=== PATIENT | male | born 1945 | race Caucasian/White ===

== ENCOUNTER 2022-04-17 22:42 | Inpatient (IN) | payer MEDICARE, SELFPAY ==
[2022-04-17 22:46] VITALS: BP 131/101; PULSE 142; RESP 16; TEMP 36.4; O2SAT 97; BMI 22.1
[2022-04-17 23:23] VITALS: RESP 15; O2SAT 96
[2022-04-18] VITALS (14 sets, daily range): BP systolic 117–135; BP diastolic 59–85; PULSE 92–136; RESP 15–20; TEMP 36.8–38.3; O2SAT 92–95; BMI 22.1
[2022-04-18 01:19] LABS: Absolute Lymphocyte Count 0.99 X10^3/uL (0.83-4.51); Absolute Neutrophil Count 28.1 X10^3/uL (2.0-7.7); Basophil% 0.3 % (0-1); Eosinophil# 0.06 X10^3/uL; Eosinophils% 0.2 % (0-5); Hematocrit 31.5 % (40-54); Hemoglobin 10.4 g/dL (13.0-16.5); Lymphocyte # 0.99 X10^3/ul (0.83-4.51); Lymphocyte % 3.2 % (19-41); Mean Corpuscular Hgb 29.6 pg (27.0-32.0); Mean Corpuscular Volume 89.7 fL (80-94); Mean Platelet Vol. 10.1 fl (6.2-12.0); Monocyte# 0.84 X10^3/uL; Monocyte% 2.8 % (0-10); NRBC Flagged by Analyzer 0 % (0-5); Neutrophil # 28.07 X10^3/uL (2.7-7.7); Neutrophil % 91.9 % (47-70); POSITIVE COUNT YES; POSITIVE DIFFERENTIAL YES; Platelet Count 589 K/mm3 (150-450); RBC Distribution Width CV 13.9 % (11.6-14.6); Red Blood Count 3.51 M/mm3 (4.6-6.2)
[2022-04-18 01:21] LABS: Differential Indicated SCAN CRITERIA MET; White Blood Count 30.5 K/mm3 (4.4-11.0)
--- NOTE | 2022-04-18 01:30 | CT_ITS ---
EXAM: CT ANGIOGRAPHY CHEST WITHOUT AND WITH INTRAVENOUS CONTRAST CLINICAL INDICATION: dyspnea TECHNIQUE: Helically acquired angiography images were obtained of the chest without and with intravenous contrast. CTDIvol = ( 11.32 ) mGy, DLP = ( 421.90 ) mGycm This CT exam was performed using one or more of the following dose reduction techniques: automated exposure control, adjustment of the mA and/or kV according to patient size, and/or use of iterative reconstruction technique. This report was created using Medialive report generation technology. MIP reconstructed images were created and reviewed. CONTRAST: IV 75mL [id number] COMPARISON: None. FINDINGS: PULMONARY ARTERIES: Unremarkable. Normal in caliber. No evidence of pulmonary embolism. AORTA: Unremarkable. Normal in caliber. No evidence of dissection. GREAT VESSELS OF AORTIC ARCH: Unremarkable. Normal in caliber. No evidence of dissection. LUNGS AND PLEURAL SPACES: Centrilobular emphysema is relatively mild. Moderate right pleural effusion with adjacent passive atelectasis. Small left pleural effusion with adjacent passive atelectasis. At least mild centrilobular emphysema. Small calcified granuloma at the left upper lobe. No mass. No pneumothorax. HEART: Moderate-size pericardial effusion. No signs of right heart strain, ratio of right ventricle to left ventricle measures less than 1. MEDIASTINUM: Multivessel calcific coronary tortuous. Mediastinal and bilateral hilar adenopathy. Distal esophageal wall thickening is concerning for esophagitis. No hiatal hernia. THYROID: Unremarkable. No thyroid lesions. BONES/JOINTS: Unremarkable. No suspicious lytic or blastic abnormality. GALLBLADDER AND BILE DUCTS: Gallbladder sludge but no acute cholecystitis. SPLEEN: Calcified granulomas of the spleen. KIDNEYS AND URETERS: Exophytic cyst involving the left kidney, incompletely imaged on this study. CT/CTA Chest W/WO Contrast IMPRESSION: 1. Bilateral pleural effusions with reactive adenopathy. 2. No PE. 3. Moderate-size pericardial effusion. Electronically Signed: Ankit Moyer MD at 3:33 EST ,
[2022-04-18 01:33] LABS: Anion Gap 9 (5-15); BUN 62 mg/dL (7-18); BUN/Creat Ratio 36.5 RATIO (10-20); Calcium,Total 9.3 mg/dL (8.5-10.1); Chloride 96 mmol/L (98-107); EST Glomerular Filtration Rate 42 mL/min (>60); Est Glom Filt Rate - Afr Amer 51 mL/min (>60); Estimated Creatinine Clearance 36.13 ml/min; Glucose 116 mg/dL (74-106); Potassium 3.4 mmol/L (3.5-5.1); Sodium Level 134 mmol/L (136-145)
[2022-04-18 02:21] LABS: Differential Comment SCANNED
[2022-04-18 02:22] LABS: BNP,B-Type NATRIURETIC PEPTIDE 157.9 pg/mL (0-100); Platelet Estimate MOD INC (ADEQ); Platelet Morphology LARGE
[2022-04-18 02:25] LABS: AST(SGOT) 124 U/L (15-37); Alanine Aminotransfer ALT/SGPT 98 U/L (16-61); Alkaline Phosphatase 111 U/L (45-117); Bilirubin, Direct 0.16 mg/dL (0.00-0.30); Globulin 5.8 g/dL (2.2-4.2); Magnesium 2.2 mg/dL (1.6-2.6); Protein, Total 7.8 g/dL (6.4-8.2)
[2022-04-18 02:26] LABS: Lactic Acid 1.8 mmol/L (0.4-1.9)
[2022-04-18 02:31] LABS: Color, Urine Yellow (Yellow); Glucose, Dipstick Normal (Normal); Ketone-Dipstick Negative (Negative); Leukocyte Esterase-Dipstick Negative /ul (Negative); Mucous, Urine 0 SEEN /hpf (<or=2+); Nitrite-Dipstick Negative (Negative); Occult Blood-Urine 25 /ul (Negative); Protein-Dipstick 30 mg/dl (Negative); Specific Gravity, Urine 1.015 (1.002-1.030); Squamous Epithelial Cells - UA 0 SEEN /hpf (0-5); Urine Bilirubin Dipstick Negative (Negative); Urine Clarity Clear (Clear); Urine Urobilinogen Normal (Normal)
[2022-04-18 02:46] LABS: Amorphous Sediment 1+; Bacteria 1+ /hpf (None Seen); Red Blood Cells-Urine 0-5 SEEN /hpf (0-5); White Blood Cells 0-5 SEEN /hpf (0-5)
--- NOTE | 2022-04-18 04:17 | EDS_ITS ---
HPI History of Present Illness Chief Complaint: Shortness of Breath Narrative Narrative: Patient is a 76-year-old male who lives at home alone. According to patient and family he has a history of smoking and alcohol abuse which she quit roughly 1 month ago. He also has a diagnosis of lung cancer in August 2021 which he has not followed up with. Patient and family state that he lives in a trailer by himself and over the past 2 weeks he has been having increased generalized weakness to the point where he is not eating or drinking or getting up and ambulating on his own. Family states that they have tried to help take care of him with physical therapy but are not present 24 hours a day and they feel like they are no longer able to care for him in this state and therefore brought him in for evaluation Patient states he does not have a DNR on file but would prefer to be a DNR Co mfort Care arrest without intubation [facility] Medical History (Updated 04/18/22 @ 07:[address] Ankit Atkins, DO) HTN (hypertension) Lung cancer Home Medications albuterol sulfate 90 mcg/actuation aerosol inhaler 1 - 2 puff inhalation Q4H PRN SOB 04/18/22 [History Last Taken Unknown] amlodipine 5 mg-benazepril 10 mg capsule 1 cap PO DAILY 04/18/22 [History Last Taken Unknown] atorvastatin 20 mg tablet 20 mg PO QHS 04/18/22 [History Last Taken Unknown] fluticasone fur. 100 mcg-umeclid 62.5 mcg-vilant 25 mcg inhalat.powder (Trelegy Ellipta) 1 inh inhalation DAILY 04/18/22 [History Last Taken Unknown] Allergy/AdvReac Type Severity Reaction Status Date / Time No Known Allergies Allergy Verified 04/17/22 22:46 Social History Smoking Status: Current every day smoker tobacco type: cigarettes ROS ROS ED Constitutional Constitutional ED: Denies chills or fever(s) ENT ENT ED: Denies sore throat Cardiovascular Cardiovascular: Denies chest pain Respiratory/Chest Respiratory/Chest: Reports cough and dyspnea Gastrointestinal Gastrointestinal: Reports nausea; Denies abdominal pain, diarrhea or vomiting Genitourinary Genitourinary ED: Denies dysuria Musculoskeletal Musculoskeletal: Denies myalgias Integumentary Denies rash Neurologic Neurologic: Reports weakness; Denies headache(s) Hematologic/Lymphatic Hematologic/Lymphatic: Denies easy bleeding or easy bruising EXAM Physical Exam Const Vital Signs: 04/17/22 22:46 04/17/22 23:23 04/17/22 23:23 Temperature 97.6 F L Temperature Source Temporal Pulse Rate 142 H Respiratory Rate 16 15 Blood Pressure 131/101 H Blood Pressure Mean 111 Pulse Ox 97 96 96 Oxygen Delivery Method Room Air Room Air Room Air 04/18/22 00:44 04/18/22 03:26 Temperature 98.9 F Temperature Source Oral Pulse Rate 101 H Respiratory Rate 15 15 Blood Pressure 135/85 H 129/59 H Blood Pressure Mean 101 82 Pulse Ox 95 95 Oxygen Delivery Method Room Air Positive unkempt General Appearance ED: unkempt and pallor HEENT Reports dry mucous membranes Mouth ED: Yes dry mucous membranes Mouth: dry mucous membranes Eyes PERRL and EOMs intact bilaterally General Eye ED: Yes pale conjunctiva Neck supple and no JVD Resp Resp Narrative: Breath sounds are diminished throughout with rhonchi present in the bilateral bases however no nasal flaring retractions tachypnea or accessory muscle use Cardio regular rhythm Rate: tachycardic and other Other Details: Tachycardic rate with regular rhythm Radial pulses are plus 2 out of 4 bilaterally are equal and symmetric GI normal to inspection, nondistended, normoactive bowel sounds, non-tender, non- distended and no masses GI Narrative: Abdomen is soft nontender and nondistended with hypoactive bowel sounds. No v oluntary guarding or rigidity. There is a reducible ventral hernia noted. No pulsatile mass or fluid wave present Auscultation: hypoactive bowel sounds Palpation: soft Extremity Extremity Narrative: Patient has +1-2 pitting edema to the bilateral lower extremities that is equal and symmetric Negative Homans' sign bilaterally Neuro oriented x3 and CN's II-XII intact bilaterally Neuro Narrative: Patient has generalized weakness with difficulty ambulating without assistance but there is no focal/acute neurologic finding present Sensorium / Orientation: alert Psych Psych Narrative: Patient has a flat affect Appearance: unkempt Skin no rashes or lesions noted Skin Narrative: Skin turgor is increased General Skin Exam: pallor MDM MDM MDM Narrative Medical decision making narrative: Patient presented to the ER tachycardic but otherwise afebrile and satting in the mid 90s on room air. With his increasing generalized weakness and failure to thrive as well as son reported history of lung cancer which she did not follow-up on I had concern for underlying infectious process or even pulmonary embolus causing his shortness of breath. Secondary to this I elected to perform basic labs and a CTA of his chest. Labs showed a leukocytosis at 30.5 but ot herwise no clinically significant findings. CTA revealed no PE but it did show bilateral pleural effusions with a pericardial effusion. However the patient does not have any chest pain or heart strain and therefore I feel that these findings are more chronic in nature. At this time because of the leukocytosis he will have blood cultures obtained as well as procalcitonin value but as it would not have a source of infection I do not feel there is need for antibiotics. Based on the patient's pleural and pericardial effusions and his failure to thrive and the fact that he needs more help and he can achieve at home by himself he will be kept in the hospital for further care and he is agreeable to placement in rehab or [facility] if necessary Lab Data Attestation: I reviewed the patient's lab results. Labs: Laboratory Results - last 24 hr 04/18/22 04/18/22 04/18/22 01:05 01:05 01:05 WBC 30.5 H* RBC 3.51 L Hgb 10.4 L Hct 31.5 L MCV 89.7 MCH 29.6 MCHC 33.0 RDW Std Deviation 46.0 H RDW Coeff of Yemi 13.9 Plt Count 589 H MPV 10.1 Immature Gran % (Auto) 1.600 H Neut % (Auto) 91.9 H Lymph % (Auto) 3.2 L [place] % (Auto) 2.8 Eos % (Auto) 0.2 Baso % (Auto) 0.3 Absolute Neuts (auto) 28.1 H Absolute Lymphs (auto) 0.99 Nucleated RBC % 0 Differential Comment SCANNED Diff Path Review May foll Platelet Estimate MOD INC Plt Morphology Comment LARGE Sodium 134 L Potassium 3.4 L Chloride 96 L Carbon Dioxide 29.0 Anion Gap 9 BUN 62 H Creatinine 1.70 H Estim Creat Clear Calc 36.13 Est GFR (MDRD) Af Amer 51 L Est GFR (MDRD) Non-Af 42 L BUN/Creatinine Ratio 36.5 H Glucose 116 H Lactic Acid Calcium 9.3 Magnesium 2.2 Total Bilirubin 0.40 Direct Bilirubin 0.16 AST 124 H ALT 98 H Alkaline Phosphatase 111 B-Natriuretic Peptide Total Protein 7.8 Albumin 2.0 L Globulin 5.8 H Urine Color Urine Clarity Urine pH Ur Specific [place] Urine Protein Urine Glucose (UA) Urine Ketones Urine Occult Blood Urine Nitrite Urine Bilirubin Urine Urobilinogen Ur Leukocyte Esterase Urine RBC Urine WBC Ur Squamous Epith Cells Amorphous Sediment Urine Bacteria Urine Mucus 04/18/22 04/18/22 04/18/22 01:05 01:50 02:20 WBC RBC Hgb Hct MCV MCH MCHC RDW Std Deviation RDW Coeff of Yemi Plt Count MPV Immature Gran % (Auto) Neut % (Auto) Lymph % (Auto) [place] % (Auto) Eos % (Auto) Baso % (Auto) Absolute Neuts (auto) Absolute Lymphs (auto) Nucleated RBC % Differential Comment Diff Path Review Platelet Estimate Plt Morphology Comment Sodium Potassium Chloride Carbon Dioxide Anion Gap BUN Creatinine Estim Creat Clear Calc Est GFR (MDRD) Af Amer Est GFR (MDRD) Non-Af BUN/Creatinine Ratio Glucose Lactic Acid 1.8 Calcium Magnesium Total Bilirubin Direct Bilirubin AST ALT Alkaline Phosphatase B-Natriuretic Peptide 157.9 H Total Protein Albumin Globulin Urine Color Yellow Urine Clarity Clear Urine pH 5.0 Ur Specific [place] 1.015 Urine Protein 30 H Urine Glucose (UA) Normal Urine Ketones Negative Urine Occult Blood 25 H Urine Nitrite Negative Urine Bilirubin Negative Urine Urobilinogen Normal Ur Leukocyte Esterase Negative Urine RBC 0-5 SEEN Urine WBC 0-5 SEEN Ur Squamous Epith Cells 0 SEEN Amorphous Sediment 1+ Urine Bacteria 1+ Urine Mucus 0 SEEN Radiography Diagnostic Testing: Clinical Impression(s) from Imaging Studies Chest CTA 04/18/22 01:30 IMPRESSION: 1. Bilateral pleural effusions with reactive adenopathy. 2. No PE. 3. Moderate-size pericardial effusion. Electronically Signed: Ankit Moyer MD at 3:33 EST , Discharge Plan Dx/Rx/DC Orders Clinical Impression: NAZANIN (acute kidney injury), Debility, Leukocytosis, Pericardial effusion Disposition [facility]
--- NOTE | 2022-04-18 04:26 | PCM.HP.STD ---
HPI - General General Date of Admission: 04/18/22 Date of Service: 04/18/22 Chief Complaint: Weakness HPI Narrative EUGENIA DONOHUE, is a 76 M with a significant history of malignant lung nodule status post resection with lymph resection as well presenting to the emergency department with 2-week history of progressively worsening weakness. Patient is too weak that he is unable to get up by himself. The patient lives on a trailer on his son's compound and his son has been helping him. However it has gone to a point where his son is no longer able to provide help him. Associated with symptoms is anorexia. Also patient is not drinking. Also patient has chronic shortness of breath. Patient's lung resection was on 08/30/2021 at [facility] Home Medications albuterol sulfate 90 mcg/actuation aerosol inhaler 1 - 2 puff inhalation Q4H PRN SOB 04/18/22 [History Last Taken Unknown] amlodipine 5 mg-benazepril 10 mg capsule 1 cap PO DAILY 04/18/22 [History Last Taken Unknown] atorvastatin 20 mg tablet 20 mg PO QHS 04/18/22 [History Last Taken Unknown] fluticasone fur. 100 mcg-umeclid 62.5 mcg-vilant 25 mcg inhalat.powder (Trelegy Ellipta) 1 inh inhalation DAILY 04/18/22 [History Last Taken Unknown] Allergy/AdvReac Type Severity Reaction Status Date / Time No Known Allergies Allergy Verified 04/17/22 22:46 Social History Smoking Status: Current every day smoker tobacco type: cigarettes ROS ROS Narrative Pertinent positives and pertinent negatives as noted in HPI. All other systems were reviewed and are negative Vital Signs Vital Signs Vital Signs: 04/17/22 22:46 04/17/22 23:23 04/17/22 23:23 Temperature 97.6 F L Temperature Source Temporal Pulse Rate 142 H Respiratory Rate 16 15 Blood Pressure 131/101 H Blood Pressure Mean 111 Pulse Ox 97 96 96 Oxygen Delivery Method Room Air Room Air Room Air 04/18/22 00:44 04/18/22 03:26 Temperature 98.9 F Temperature Source Oral Pulse Rate 101 H Respiratory Rate 15 15 Blood Pressure 135/85 H 129/59 H Blood Pressure Mean 101 82 Pulse Ox 95 95 Oxygen Delivery Method Room Air Weight Weight: 68.039 kg Body Mass Index (BMI) 22.1 Physical Exam Narrative Physical exam: General: Well-nourished, well-developed. Head: Normocephalic, atraumatic, no tenderness Eyes: Vision is grossly intact. EOMI ENT, no trauma, moist mucous membranes, no rhinorrhea Neck: Nontender, No thyromegaly. CVS: Regular rate and rhythm. S1-S2 present. No murmur, gallop or rub. Respiratory : clear to auscultation bilaterally, chest wall nontender, no wheezing Abdomen: Soft, nontender, nondistended, normal bowel sounds, no masses : Deferred Back: Nontender, no CVA tenderness, no midline spinal tenderness, deformities, step-offs Extremities: Nontender full range of motion, no trauma Skin: Normal color, no trauma, abrasions Neuro: Alert, knows the year. Does not know the month. cranial nerves II through XII grossly intact. Psychiatry: Flat not anxious. Results Lab / Micro Data Result Diagrams: 04/18/22 01:05 04/18/22 01:05 Labs: Laboratory Results - last 24 hr 04/18/22 01:05: WBC 30.5 H*, RBC 3.51 L, Hgb 10.4 L, Hct 31.5 L, MCV 89.7, MCH 29.6, MCHC 33.0, RDW Std Deviation 46.0 H, RDW Coeff of Yemi 13.9, Plt Count 589 H, MPV 10.1, Immature Gran % (Auto) 1.600 H, Neut % (Auto) 91.9 H, Lymph % (Auto) 3.2 L, [place] % (Auto) 2.8, Eos % (Auto) 0.2, Baso % (Auto) 0.3, Absolute Neuts (auto) 28.1 H, Absolute Lymphs (auto) 0.99, Nucleated RBC % 0, Differential Comment SCANNED, Diff Path Review May foll, Platelet Estimate MOD INC, Plt Morphology Comment LARGE 04/18/22 01:05: Sodium 134 L, Potassium 3.4 L, Chloride 96 L, Carbon Dioxide 29.0, Anion Gap 9, BUN 62 H, Creatinine 1.70 H, Estim Creat Clear Calc 36.13, Est GFR (MDRD) Af Amer 51 L, Est GFR (MDRD) Non-Af 42 L, BUN/Creatinine Ratio 36.5 H, Glucose 116 H, Calcium 9.3 04/18/22 01:05: Magnesium 2.2, Total Bilirubin 0.40, Direct Bilirubin 0.16, AST 124 H, ALT 98 H, Alkaline Phosphatase 111, Total Protein 7.8, Albumin 2.0 L, Globulin 5.8 H 04/18/22 01:05: B-Natriuretic Peptide 157.9 H 04/18/22 01:50: Lactic Acid 1.8 04/18/22 02:20: Urine Color Yellow, Urine Clarity Clear, Urine pH 5.0, Ur Specific [place] 1.015, Urine Protein 30 H, Urine Glucose (UA) Normal, Urine Ketones Negative, Urine Occult Blood 25 H, Urine Nitrite Negative, Urine Bilirubin Negative, Urine Urobilinogen Normal, Ur Leukocyte Esterase Negative, Urine RBC 0-5 SEEN, Urine WBC 0-5 SEEN, Ur Squamous Epith Cells 0 SEEN, Amorphous Sediment 1+, Urine Bacteria 1+, Urine Mucus 0 SEEN Micro: Microbiology 04/18/22 01:10 Nasal Secretion SARS-CoV-2 & FLU Antigen (Rapid) - Final Radiology Impression Chest CTA 04/18/22 01:30 IMPRESSION: 1. Bilateral pleural effusions with reactive adenopathy. 2. No PE. 3. Moderate-size pericardial effusion. Electronically Signed: Ankit Moyer MD at 3:33 EST , Assessment & Plan Assessment/Plan (1) NAZANIN (acute kidney injury): (2) Debility: (3) Leukocytosis: (4) Pericardial effusion: PLAN: Plan NAZANIN Review of community records from [facility] shows that on 09/03/2021 patient creatinine was 1.0. His creatinine on this presentation was 1.70. BUN is 62. BUN over creatinine is 36.5. Gentle IV hydration ordered. Trend BMP. Ultrasound of bladder and kidneys ordered. Leukocytosis. White count on presentation was 30,500. And with bandemia of 1.6% Review of community records show that on 09/03/2021 his white count was 9.2. Trend. Blood cultures ordered at emergency department, follow-up Pericardial effusion CTA showed a pericardial effusion. CT was visualized and independently interpreted and I agree with with radiology interpretation. However will order an echocardiogram for further evaluation. No noticeable symptoms of pericardial effusion. Debility PT and OT to work with patient for strengthening balance training. Case management consult Bilateral lower feet edema Home CARLEY alcantara continued DVT prophylaxis Subcutaneous Lovenox ordered. Charges/Coding Visit Charges Inpatient E&M: 44896 Init Hosp L3
[2022-04-18 05:17] LABS: Procalcitonin 1.01 ng/mL (0.00-0.09)
--- NOTE | 2022-04-18 05:27 | US_ITS ---
STUDY: RENAL ULTRASOUND - COMPLETE REASON FOR EXAM: Male, 76 years old. NAZANIN TECHNIQUE: Ultrasound evaluation of the kidneys was performed with real-time and static beckman-scale imaging. COMPARISON: None. FINDINGS: RIGHT KIDNEY: Normal location of the right kidney, which is normal in size. The right kidney measures 10.8 cm. There is a normal cortex of the right kidney. The renal cortex measures 11.8 cm. There is no right renal mass or cyst. There are no right renal calculi. There is mild hydronephrosis of the right kidney. DISTAL RIGHT URETER: There is non-visualization of the distal right ureter. There is no demonstrated right ureterovesical junction calculus. There is a visualized right ureteral jet. LEFT KIDNEY: Normal location of the left kidney, which is normal in size. The left kidney measures 10.5 cm. There is a normal cortex of the left kidney. The renal cortex measures 1.6 cm. 5 cm exophytic cyst on the midsection of left kidney. There are no left renal calculi. There is no left hydronephrosis. DISTAL LEFT URETER: There is non-visualization of the distal left ureter. There is no demonstrated left ureterovesical junction calculus. There is a visualized left ureteral jet. BLADDER: The distended urinary bladder has a volume of 5:15 ml. The empty urinary bladder has a volume of ml. There is a normal wall thickness of the distended urinary bladder. There is no demonstrated mass within the urinary bladder. There are no demonstrated bladder calculi. US/Kidney and Bladder IMPRESSION: 1. Mild right hydronephrosis. 2. 5 cm exophytic cyst of the left kidney. Electronically Signed: Wale Woodruff MD at 12:29 EST ,
[2022-04-18] MEDS: 0.9% Normal Saline 1,000 ML 75 ML IV ×2 (05:42→17:54)
--- NOTE | 2022-04-18 05:55 | ECHOCS_ITS ---
Reason For Study: Pericardial Effusion on CT Procedure This was a 2D Doppler, Color Flow transthoracic echocardiogram. Technically difficult study due to patient body habitus, arrhythmia, and uncontrollable shaking. Contrast injection was performed. Exam performed portable in ED. Left Ventricle Normal LV size. The estimated ejection fraction is 55 %. Normal diastology for age. No regional wall motion abnormalities noted. Right Ventricle Normal RV size. Normal systolic function. Atria Normal left atrium. Normal right atrium. No doppler evidence for ASD. Mitral Valve There is no mitral valve stenosis. No mitral valve insufficiency. Tricuspid Valve There is no tricuspid stenosis. Trivial tricuspid valve insufficiency. Unable to estimate RV systolic pressure due to insufficient tricuspid regurgitant envelope. Aortic Valve There is no aortic stenosis. No aortic valve insufficiency. Pulmonic Valve There is no pulmonic valvular stenosis. No pulmonic valve insufficiency. Great Vessels Normal aortic root. Pericardium/Pleural No pericardial effusion. Medication Diluted definity 2ml given slow IV push to enhance endocardial definition. MMode/2D Measurements & Calculations RVDd: 3.2 cm LAV(MOD-sp4): 32.2 ml LA A4 area: 14.3 cm2 RA A4 area: 16.7 cm2 Doppler Measurements & Calculations MV E max uzma: 97.2 cm/sec MV V2 max: 97.6 cm/sec Ao V2 max: 114.8 cm/sec MV max P.8 mmHg Ao max P.3 mmHg MV V2 mean: 45.7 cm/sec MV mean P.0 mmHg MV V2 VTI: 28.0 cm LV V1 max: 111.2 cm/sec PA V2 max: 128.7 cm/sec LV V1 max P.0 mmHg PA V2 mean: 92.9 cm/sec ECHO/Echo Complete W/ Contrast Interpretation Summary The estimated ejection fraction is 55 %. No significant valvular abnormalities Ordering Physician: Shaun Landry Performed By: Candelario Klein RCS
[2022-04-18 06:21] LABS: Absolute Lymphocyte Count 0.98 X10^3/uL (0.83-4.51); Absolute Neutrophil Count 25.2 X10^3/uL (2.0-7.7); Basophil% 0.4 % (0-1); Eosinophil# 0.15 X10^3/uL; Eosinophils% 0.5 % (0-5); Hemoglobin 10.1 g/dL (13.0-16.5); Lymphocyte # 0.98 X10^3/ul (0.83-4.51); Lymphocyte % 3.5 % (19-41); Mean Corp Hgb Conc 32.6 g/dL (32-36); Mean Corpuscular Hgb 28.9 pg (27.0-32.0); Mean Corpuscular Volume 88.8 fL (80-94); Mean Platelet Vol. 9.7 fl (6.2-12.0); Monocyte# 0.98 X10^3/uL; Monocyte% 3.5 % (0-10); NRBC Flagged by Analyzer 0 % (0-5); Neutrophil # 25.15 X10^3/uL (2.7-7.7); Neutrophil % 91.1 % (47-70); POSITIVE DIFFERENTIAL YES; Platelet Count 595 K/mm3 (150-450); RBC Distribution Width CV 13.7 % (11.6-14.6); RBC Distribution Width SD 44.7 fl (35.1-43.9); Red Blood Count 3.49 M/mm3 (4.6-6.2); White Blood Count 27.7 K/mm3 (4.4-11.0)
[2022-04-18 06:23] LABS: Differential Indicated SCAN CRITERIA MET
[2022-04-18 06:39] LABS: Anion Gap 10 (5-15); BUN 58 mg/dL (7-18); BUN/Creat Ratio 36.5 RATIO (10-20); Calcium,Total 8.7 mg/dL (8.5-10.1); Chloride 98 mmol/L (98-107); Creatinine, Serum 1.59 mg/dL (0.70-1.30); EST Glomerular Filtration Rate 45 mL/min (>60); Est Glom Filt Rate - Afr Amer 55 mL/min (>60); Estimated Creatinine Clearance 38.63 ml/min; Glucose 116 mg/dL (74-106); Potassium 3.5 mmol/L (3.5-5.1); Sodium Level 135 mmol/L (136-145)
[2022-04-18 06:54] LABS: Differential Comment SCANNED
[2022-04-18] MEDS: Budesonide Respules 0.5 MG/2 ML AMPUL.NEB. INHALATION ×2 (07:23→19:03)
[2022-04-18] MEDS: Ipratropium/Albuterol Sulfate 3 ML AMPUL.NEB INHALATION (07:23)
[2022-04-18 07:30] LABS: Osmolality, Serum 296 mOsm/KG (280-301)
[2022-04-18] MEDS: amLODIPine 5 MG Tablet PO (09:21)
[2022-04-18] MEDS: Enoxaparin 40 MG/0.4 ML Syringe SC (09:21)
[2022-04-18 09:47] LABS: Urine Sodium 15 mmol/L (Not Establ.)
--- NOTE | 2022-04-18 12:29 | HP.PCM.HOS_ITS ---
HPI - General General Date of Admission: 04/18/22 Chief Complaint: Weakness HPI Narrative EUGENIA DONOHUE, is a 76 M who presents [facility] Medical History (Updated 04/18/22 @ 07:[address] Ankit Atkins, ) HTN (hypertension) Lung cancer Home Medications albuterol sulfate 90 mcg/actuation aerosol inhaler 1 - 2 puff inhalation Q4H PRN SOB 04/18/22 [History Last Taken Unknown] amlodipine 5 mg-benazepril 10 mg capsule 1 cap PO DAILY 04/18/22 [History Last Taken Unknown] atorvastatin 20 mg tablet 20 mg PO QHS 04/18/22 [History Last Taken Unknown] fluticasone fur. 100 mcg-umeclid 62.5 mcg-vilant 25 mcg inhalat.powder (Trelegy Ellipta) 1 inh inhalation DAILY 04/18/22 [History Last Taken Unknown] Allergy/AdvReac Type Severity Reaction Status Date / Time No Known Allergies Allergy Verified 04/17/22 22:46 Social History Smoking Status: Current every day smoker tobacco type: cigarettes Vital Signs Vital Signs Vital Signs: 04/17/22 22:46 04/17/22 23:23 04/17/22 23:23 Temperature 97.6 F L Temperature Source Temporal Pulse Rate 142 H Pulse Strength Respiratory Rate 16 15 Respiratory Effort Respiratory Depth Respiratory Pattern Blood Pressure 131/101 H Blood Pressure Mean 111 Blood Pressure Source Blood Pressure Position Blood Pressure Location Pulse Ox 97 96 96 Oxygen Delivery Method Room Air Room Air Room Air 04/18/22 00:44 04/18/22 03:26 04/18/22 04:49 Temperature 98.9 F 98.9 F Temperature Source Oral Oral Pulse Rate 101 H 104 H Pulse Strength Respiratory Rate 15 15 15 Respiratory Effort Respiratory Depth Respiratory Pattern Blood Pressure 135/85 H 129/59 H 117/70 Blood Pressure Mean 101 82 85 Blood Pressure Source Blood Pressure Position Blood Pressure Location Pulse Ox 95 95 94 Oxygen Delivery Method Room Air Room Air 04/18/22 05:00 04/18/22 05:50 04/18/22 06:03 Temperature 98.2 F Temperature Source Temporal Pulse Rate 92 114 H Pulse Strength Respiratory Rate 18 Respiratory Effort Non-Labored Respiratory Depth Normal Respiratory Pattern Tachypnea Blood Pressure 118/74 Blood Pressure Mean 88 Blood Pressure Source Monitor Blood Pressure Position Semi-Fowlers Blood Pressure Location Right Arm Pulse Ox 95 Oxygen Delivery Method Room Air Room Air 04/18/22 06:19 04/18/22 07:00 04/18/22 07:27 Temperature Temperature Source Pulse Rate 109 H 105 H Pulse Strength Respiratory Rate 18 Respiratory Effort Normal Non-Labored Respiratory Depth Normal Respiratory Pattern Normal Normal Blood Pressure Blood Pressure Mean Blood Pressure Source Blood Pressure Position Blood Pressure Location Pulse Ox Oxygen Delivery Method Room Air 04/18/22 07:27 04/18/22 10:00 04/18/22 08:00 Temperature Temperature Source Pulse Rate Pulse Strength Weak (1+) Respiratory Rate Respiratory Effort Normal Non-Labored Respiratory Depth Normal Respiratory Pattern Normal Blood Pressure Blood Pressure Mean Blood Pressure Source Blood Pressure Position Blood Pressure Location Pulse Ox 92 Oxygen Delivery Method Room Air Room Air 04/18/22 12:03 Temperature Temperature Source Pulse Rate 109 H Pulse Strength Respiratory Rate Respiratory Effort Respiratory Depth Respiratory Pattern Blood Pressure Blood Pressure Mean Blood Pressure Source Blood Pressure Position Blood Pressure Location Pulse Ox Oxygen Delivery Method Weight Weight: 150 lb Body Mass Index (BMI) 22.1 Results Lab / Micro Data Result Diagrams: 04/18/22 06:09 04/18/22 06:09 Labs: Laboratory Results - last 24 hr 04/18/22 01:05: WBC 30.5 H*, RBC 3.51 L, Hgb 10.4 L, Hct 31.5 L, MCV 89.7, MCH 29.6, MCHC 33.0, RDW Std Deviation 46.0 H, RDW Coeff of Yemi 13.9, Plt Count 589 H, MPV 10.1, Immature Gran % (Auto) 1.600 H, Neut % (Auto) 91.9 H, Lymph % (Auto) 3.2 L, [place] % (Auto) 2.8, Eos % (Auto) 0.2, Baso % (Auto) 0.3, Absolute Neuts (auto) 28.1 H, Absolute Lymphs (auto) 0.99, Nucleated RBC % 0, Differential Comment SCANNED, Diff Path Review Destini salvador, Platelet Estimate MOD INC, Plt Morphology Comment LARGE 04/18/22 01:05: Sodium 134 L, Potassium 3.4 L, Chloride 96 L, Carbon Dioxide 29.0, Anion Gap 9, BUN 62 H, Creatinine 1.70 H, Estim Creat Clear Calc 36.13, Est GFR (MDRD) Af Amer 51 L, Est GFR (MDRD) Non-Af 42 L, BUN/Creatinine Ratio 36.5 H, Glucose 116 H, Calcium 9.3 04/18/22 01:05: Magnesium 2.2, Total Bilirubin 0.40, Direct Bilirubin 0.16, AST 124 H, ALT 98 H, Alkaline Phosphatase 111, Total Protein 7.8, Albumin 2.0 L, Globulin 5.8 H 04/18/22 01:05: B-Natriuretic Peptide 157.9 H 04/18/22 01:50: Lactic Acid 1.8 04/18/22 02:20: Urine Color Yellow, Urine Clarity Clear, Urine pH 5.0, Ur Specific Worden 1.015, Urine Protein 30 H, Urine Glucose (UA) Normal, Urine Ketones Negative, Urine Occult Blood 25 H, Urine Nitrite Negative, Urine Bili hernandez Negative, Urine Urobilinogen Normal, Ur Leukocyte Esterase Negative, Urine RBC 0-5 SEEN, Urine WBC 0-5 SEEN, Ur Squamous Epith Cells 0 SEEN, Amorphous Sediment 1+, Urine Bacteria 1+, Urine Mucus 0 SEEN 04/18/22 04:32: Procalcitonin 1.01 H 04/18/22 04:32: Serum Osmolality 296 04/18/22 06:09: WBC 27.7 H, RBC 3.49 L, Hgb 10.1 L, Hct 31.0 L, MCV 88.8, MCH 28.9, MCHC 32.6, RDW Std Deviation 44.7 H, RDW Coeff of Yemi 13.7, Plt Count 595 H, MPV 9.7, Immature Gran % (Auto) 1.000 H, Neut % (Auto) 91.1 H, Lymph % (Auto) 3.5 L, Craven % (Auto) 3.5, Eos % (Auto) 0.5, Baso % (Auto) 0.4, Absolute Neuts (auto) 25.2 H, Absolute Lymphs (auto) 0.98, Nucleated RBC % 0, Differential Com ment SCANNED 04/18/22 06:09: Sodium 135 L, Potassium 3.5, Chloride 98, Carbon Dioxide 27.0, Anion Gap 10, BUN 58 H, Creatinine 1.59 H, Estim Creat Clear Calc 38.63, Est GFR (MDRD) Af Amer 55 L, Est GFR (MDRD) Non-Af 45 L, BUN/Creatinine Ratio 36.5 H, Glucose 116 H, Calcium 8.7 04/18/22 09:30: Ur Random Sodium 15, Urine Creatinine 68.90 Micro: Microbiology 04/18/22 01:10 Nasal Secretion SARS-CoV-2 & FLU Antigen (Rapid) - Final Radiology Impression Chest CTA 04/18/22 01:30 IMPRESSION: 1. Bilateral pleural effusions with reactive adenopathy. 2. No PE. 3. Moderate-size pericardial effusion. Electronically Signed: Ankit Moyer MD at 3:33 EST , Echocardiogram 04/18/22 05:55 Interpretation Summary The estimated ejection fraction is 55 %. No significant valvular abnormalities Ordering Physician: Shaun Landry Performed By: Candelario Klein, KORY
--- NOTE | 2022-04-18 13:24 | CASEMGMT ---
Addendum entered by Tiera Martínez 04/18/22 15:02: SW Note SW informed by RN patient's son was visiting and requested to speak with SW. SW met with patient's son and introduced herself and role as [employer] Older Worker Specialist. Patient's son had list of SNF options previously provided to patient. Patient's son stated the following were the patient's preferences: [facility], [facility] and [facility]. SW informed patient's son a referral would be sent to patient's first choice, patient's son voiced understanding. SW will continue to follow for discharge planning. SW sent referral to [facility] via [facility]. Plan: [facility] pending acceptance and precert ARGENIS Warren Original Note: ZINA Note SW informed by U SW patient needed to discuss discharge plan options and be given a SNF list if interested. SW met with patient and introduced herself and role as [employer] Older Worker Specialist. Patient was laying in bed with the lights off but allowed SW to turn lights on. SW inquired about patient's interest in going to a [facility] home facility at discharge, patient stated he was interested. SW provided patient with a list of local in network SNF options and inquired about his preference. Patient was receptive towards list, but stated he would need time to review the list. SW inquired if patient wanted SW to contact his daughter or son listed on facesheet to discuss discharge planning, patient declined. SW will continue to follow. RN updated SNF list was provided. Plan: SNF pending acceptance and precert ARGENIS Warren
--- NOTE | 2022-04-18 17:25 | NURSING ---
04/18/22@1725- Report called to SALINA Winter on PCU.
--- NOTE | 2022-04-18 19:32 | CPS ---
Pt HR was in the 130s. Did not give duoneb. Only pulmicort, due to high HR.
--- NOTE | 2022-04-18 20:01 | PN_ITS ---
Progress Note Patient in A. fib with RVR. Cardizem 10 mg bolus x1 given. Placed on therapeutic dose of Lovenox. Check TSH and magnesium. Replace potassium. Ec hocardiogram done within the last 24 hours.
[2022-04-18] MEDS: dilTIAZem 25 MG/5 ML Vial 10 MG IV BOLUS (20:29)
[2022-04-18] MEDS: 0.9% Saline Lock 10 ML Syringe IV (20:42)
[2022-04-18] MEDS: Potassium Chloride Oral Tablet 20 MEQ PO (20:42)
[2022-04-18] MEDS: Atorvastatin Calcium 20 MG Tablet PO (20:48)
[2022-04-18] MEDS: Enoxaparin 80 MG/0.8 ML Syringe 70 MG SC (21:01)
[2022-04-18] MEDS: Acetaminophen 325 MG Tablet 650 MG PO (22:47)
[2022-04-19] VITALS (28 sets, daily range): BP systolic 100–149; BP diastolic 49–97; PULSE 26–138; RESP 13–32; TEMP 37.2–37.9; O2SAT 88–94
[2022-04-19 05:41] LABS: Absolute Lymphocyte Count 1.15 X10^3/uL (0.83-4.51); Absolute Neutrophil Count 15.8 X10^3/uL (2.0-7.7); Basophil# 0.07 X10^3/uL; Basophil% 0.4 % (0-1); Eosinophil# 0.24 X10^3/uL; Eosinophils% 1.3 % (0-5); Hematocrit 30.3 % (40-54); Hemoglobin 9.6 g/dL (13.0-16.5); Lymphocyte # 1.15 X10^3/ul (0.83-4.51); Lymphocyte % 6.3 % (19-41); Mean Corp Hgb Conc 31.7 g/dL (32-36); Mean Corpuscular Volume 91.5 fL (80-94); Mean Platelet Vol. 9.5 fl (6.2-12.0); Monocyte# 0.75 X10^3/uL; Monocyte% 4.1 % (0-10); NRBC Flagged by Analyzer 0 % (0-5); Neutrophil # 15.82 X10^3/uL (2.7-7.7); Neutrophil % 86.5 % (47-70); Platelet Count 535 K/mm3 (150-450); RBC Distribution Width CV 14.1 % (11.6-14.6); RBC Distribution Width SD 47.4 fl (35.1-43.9); Red Blood Count 3.31 M/mm3 (4.6-6.2); White Blood Count 18.3 K/mm3 (4.4-11.0)
[2022-04-19] MEDS: 0.9% Normal Saline 1,000 ML 75 ML IV ×2 (05:47→21:29)
[2022-04-19 06:38] LABS: Anion Gap 5 (5-15); BUN 48 mg/dL (7-18); BUN/Creat Ratio 36.6 RATIO (10-20); Calcium,Total 8.7 mg/dL (8.5-10.1); Chloride 107 mmol/L (98-107); Creatinine, Serum 1.31 mg/dL (0.70-1.30); EST Glomerular Filtration Rate 57 mL/min (>60); Est Glom Filt Rate - Afr Amer 69 mL/min (>60); Estimated Creatinine Clearance 46.89 ml/min; Glucose 122 mg/dL (74-106); Magnesium 2.2 mg/dL (1.6-2.6); Potassium 3.6 mmol/L (3.5-5.1); Sodium Level 141 mmol/L (136-145); Thyroid Stim Hormone (TSH) 1.58 uIU/mL (0.358-3.74)
[2022-04-19] MEDS: Budesonide Respules 0.5 MG/2 ML AMPUL.NEB. INHALATION ×2 (07:10→19:45)
[2022-04-19] MEDS: Ipratropium/Albuterol Sulfate 3 ML AMPUL.NEB INHALATION ×2 (07:10→19:45)
--- NOTE | 2022-04-19 08:45 | CASEMGMT ---
ZINA received a call from Rachael at [facility]. She will review patient's referral and get back with ZINA. Teagan MORE
[2022-04-19] MEDS: amLODIPine 5 MG Tablet PO (09:51)
[2022-04-19] MEDS: Enoxaparin 80 MG/0.8 ML Syringe 70 MG SC ×2 (09:59→21:43)
[2022-04-19 10:00] LABS: Pathologist Review Reviewed
--- NOTE | 2022-04-19 15:02 | CASEMGMT ---
ZINA called rachael at [facility]. ZINA let her know that it is getting late on a Friday and if they can't take patient it is going to be hard to find someone this late. Rachael said she will get back to ZINA in 5 minutes. Teagan Galo CAPSULE INSPECTOR ARGENIS
--- NOTE | 2022-04-19 15:45 | PCM.PN.HOSP ---
Subjective Subjective He developed A. fib overnight was given a dose of Cardizem and then placed on a Cardizem drip this morning Objective Data Objective Data Vital Signs: Vital Signs Temp Pulse Resp BP Pulse Ox O2 Del Method O2 Flow Rate 100.2 F H 106 H 28 H 112/69 94 Nasal Cannula 2 04/19/22 15:00 04/19/22 15:00 04/19/22 15:00 04/19/22 15:00 04/19/22 15:00 04/19/22 15:00 04/19/22 15:00 Oxygen Flow Rate (L/min) 2 Oxygen Delivery Method Nasal Cannula Weight: 150 lb Body Mass Index (BMI) 22.1 Intake & Output: Intake and Output for Last 24 Hours 04/18/22 04/19/22 04/20/22 03:59 03:59 03:59 Intake Total 500 / 500 1722 / 1722 1220.58 / 1220.58 Output Total 25 / 25 Balance 500 / 500 1697 / 1697 1220.58 / 1220.58 Lab / Micro Data Result Diagrams: 04/19/22 05:20 04/19/22 05:20 Labs: Laboratory Results - last 24 hr 04/18/22 01:05: Diff Path Review Reviewed 04/19/22 05:20: WBC 18.3 H, RBC 3.31 L, Hgb 9.6 L, Hct 30.3 L, MCV 91.5, MCH 29.0, MCHC 31.7 L, RDW Std Deviation 47.4 H, RDW Coeff of Yemi 14.1, Plt Count 535 H, MPV 9.5, Immature Gran % (Auto) 1.400 H, Neut % (Auto) 86.5 H, Lymph % (Auto) 6.3 L, [place] % (Auto) 4.1, Eos % (Auto) 1.3, Baso % (Auto) 0.4, Absolute Neuts (auto) 15.8 H, Absolute Lymphs (auto) 1.15, Nucleated RBC % 0 04/19/22 05:20: Sodium 141, Potassium 3.6, Chloride 107, Carbon Dioxide 29.0, Anion Gap 5, BUN 48 H, Creatinine 1.31 H, Estim Creat Clear Calc 46.89, Est GFR (MDRD) Af Amer 69, Est GFR (MDRD) Non-Af 57 L, BUN/Creatinine Ratio 36.6 H, Glucose 122 H, Calcium 8.7, Magnesium 2.2, TSH 1.58 Micro: Microbiology 04/18/22 22:55 Nasal Secretion SARS-CoV-2 Antigen (Rapid) - Final 04/18/22 01:10 Nasal Secretion SARS-CoV-2 & FLU Antigen (Rapid) - Final Physical Exam Narrative General: Alert, Oriented x3, Cooperative, No apparent distress HEENT: Atraumatic, PERRLA, EOMI, Normocephalic Oral: Moist Mucosa Neck: Supple, No JVD Lungs: Diminished, Normal air movement, No rhonchi, No wheeze, No rales Cardiovascular: Irregular rate and rhythm, Normal S1, Normal S2, No murmurs Abdomen: Soft, Non Tender, Non-Distended, No Hepato-splenomegaly Extremities: No edema, Capillary Refill Less than 3 Seconds Skin: No rashes, No breakdown Musculoskeletal: No Tenderness to Palpation of Joints or Extremities Neurological: Cranial nerves II-XII grossly intact, Motor Exam 5/5 strength throughout, Sensory exam intact to light touch and pain Psych/Mental Status: Flat affect, Appropriate Assessment & Plan Assessment/Plan (1) NAZANIN (acute kidney injury): (2) Debility: (3) Leukocytosis: (4) Pericardial effusion: PLAN: Plan 1. NAZANIN with debility/lung cancer ? Renal function is improving as is leukocytosis while on any excess ? He is intermittently febrile however blood cultures are still pending ? Has been COVID tested twice which are negative. ? Unsure as to the pathology of his nodule but he did have a lung resection at [facility] in [place] on 08/30/2021. ? Continue with PT/OT for possible placement 2. New onset A. fib/pericardial effusion/HTN/HLD ? CTA of his chest demonstrated reactive adenopathy with pleural effusions and a moderate pericardial effusion however echo made no comment on pericardial effusion ? EF on the echo was normal ? We will continue with Cardizem drip ? Continue with Lipitor DVT: Therapeutic Lovenox Charges/Coding Visit Charges Inpatient E&M: 99160 Subs Hosp L2
--- NOTE | 2022-04-19 17:00 | CASEMGMT ---
Addendum entered by Teagan Galo 04/19/22 17:10: SW notified patient and his son that [facility] can take him when ready. Teagan MORE Original Note: ZINA spoke with Rachael at [facility] and they can take patient. Patient can go over the weekend if he is medically ready. ZINA will notify patient and his son that he was accepted at [facility]. Plan: d/c to [facility] under skilled level of care on a convalescent stay. Teagan MORE
[2022-04-19] MEDS: Menthol/Lanolin/Calamine/Znox 113 GM Tube 1 APPLIC TOPICAL (21:40)
[2022-04-19] MEDS: Atorvastatin Calcium 20 MG Tablet PO (21:41)
[2022-04-20] VITALS (25 sets, daily range): BP systolic 87–136; BP diastolic 52–87; PULSE 85–117; RESP 20–33; TEMP 37.2–37.8; O2SAT 89–99
[2022-04-20] MEDS: Menthol/Lanolin/Calamine/Znox 113 GM Tube 1 APPLIC TOPICAL ×3 (06:51→21:05)
[2022-04-20] MEDS: Budesonide Respules 0.5 MG/2 ML AMPUL.NEB. INHALATION ×2 (07:33→23:45)
[2022-04-20] MEDS: Ipratropium/Albuterol Sulfate 3 ML AMPUL.NEB INHALATION ×3 (07:33→23:44)
[2022-04-20 07:37] LABS: Absolute Lymphocyte Count 0.98 X10^3/uL (0.83-4.51); Absolute Neutrophil Count 18.7 X10^3/uL (2.0-7.7); Basophil# 0.06 X10^3/uL; Basophil% 0.3 % (0-1); Hematocrit 25.7 % (40-54); Hemoglobin 8.5 g/dL (13.0-16.5); Lymphocyte # 0.98 X10^3/ul (0.83-4.51); Lymphocyte % 4.7 % (19-41); Mean Corp Hgb Conc 33.1 g/dL (32-36); Mean Corpuscular Hgb 29.6 pg (27.0-32.0); Mean Corpuscular Volume 89.5 fL (80-94); Mean Platelet Vol. 9.7 fl (6.2-12.0); Monocyte# 0.73 X10^3/uL; Monocyte% 3.5 % (0-10); NRBC Flagged by Analyzer 0 % (0-5); Neutrophil # 18.68 X10^3/uL (2.7-7.7); Neutrophil % 89.3 % (47-70); Platelet Count 480 K/mm3 (150-450); RBC Distribution Width CV 14.2 % (11.6-14.6); RBC Distribution Width SD 46.5 fl (35.1-43.9); Red Blood Count 2.87 M/mm3 (4.6-6.2); White Blood Count 20.9 K/mm3 (4.4-11.0)
[2022-04-20 07:47] LABS: Anion Gap 6 (5-15); BUN 48 mg/dL (7-18); BUN/Creat Ratio 31.4 RATIO (10-20); Calcium,Total 8.2 mg/dL (8.5-10.1); Chloride 104 mmol/L (98-107); Creatinine, Serum 1.53 mg/dL (0.70-1.30); EST Glomerular Filtration Rate 47 mL/min (>60); Est Glom Filt Rate - Afr Amer 57 mL/min (>60); Estimated Creatinine Clearance 40.15 ml/min; Glucose 104 mg/dL (74-106); Potassium 3.8 mmol/L (3.5-5.1); Sodium Level 137 mmol/L (136-145)
[2022-04-20] MEDS: Metoprolol Tartrate 25 MG Tablet PO ×2 (08:17→21:06)
[2022-04-20] MEDS: Enoxaparin 80 MG/0.8 ML Syringe 70 MG SC (08:18)
[2022-04-20] MEDS: amLODIPine 5 MG Tablet PO (08:18)
[2022-04-20] MEDS: 0.9% Normal Saline 1,000 ML 75 ML IV ×2 (09:59→23:08)
--- NOTE | 2022-04-20 10:31 | EKG12_ITS ---
Test Reason : AFIB Blood Pressure : / mmHG Vent. Rate : 119 BPM Atrial Rate : 000 BPM P-R Int : 000 ms QRS Dur : 088 ms QT Int : 296 ms P-R-T Axes : 000 048 033 degrees QTc Int : 416 ms Atrial fibrillation with rapid ventricular response with premature ventricular or aberrantly conducte d complexes Low voltage QRS Nonspecific T wave abnormality Abnormal ECG No previous ECGs available Confirmed by DONYA BENAVIDES, MESERET ([id number]), photo editor JOSE GRAY ([id number]) on 04/22/2022 11:09:56 AM Referred By: KRISTIN Confirmed By:JESSIE NAQVI MD
--- NOTE | 2022-04-20 10:45 | EKG12_ITS ---
Test Reason : EKG RHYTHM CHANGE Blood Pressure : / mmHG Vent. Rate : 092 BPM Atrial Rate : 092 BPM P-R Int : 184 ms QRS Dur : 088 ms QT Int : 356 ms P-R-T Axes : 012 041 072 degrees QTc Int : 440 ms Sinus rhythm with Premature atrial complexes Low voltage QRS Nonspecific T wave abnormality Abnormal ECG When compared with ECG of 18-APR-2022 19:50, MANUAL COMPARISON REQUIRED, DATA IS UNCONFIRMED Confirmed by PILAR BENAVIDES, PAULO ([id number]), editorial intern JOSE GRAY ([id number]) on 04/23/2022 8:42:36 AM Referred By: Confirmed By:PAULO QUEZADA MD
--- NOTE | 2022-04-20 11:10 | CASEMGMT ---
Social Work Pt will not be discharged today. SW completed PAS/RR and put this with results on chart in event pt can be discharged tomorrow. JENNI Deluca
[2022-04-20] MEDS: dilTIAZem CD 240 MG Capsule PO (11:24)
[2022-04-20 11:43] LABS: Ferritin 6591 ng/mL (26-388); Iron 16 ug/dL (65-175); Iron Binding Capacity,Total 115 ug/dL (250-450); PERCENT IRON SATURATION 13.9 % (15.0-55.0)
--- NOTE | 2022-04-20 15:03 | PN.HOSP_ITS ---
Subjective Subjective Feels unchanged from admission he is a bit more day and his renal function has slightly worsened. His white count has gotten worse. He has had periodic fevers but so far infectious work-up is negative Objective Data Objective Data Vital Signs: Vital Signs Temp Pulse Resp BP Pulse Ox O2 Del Method O2 Flow Rate 99.2 F H 92 30 H 103/68 95 Room Air 2 04/20/22 09:00 04/20/22 13:45 04/20/22 13:45 04/20/22 13:00 04/20/22 13:00 04/20/22 14:55 04/20/22 03:00 Oxygen Flow Rate (L/min) 2 Oxygen Delivery Method Room Air Weight: 150 lb Body Mass Index (BMI) 22.1 Intake & Output: Intake and Output for Last 24 Hours 04/19/22 04/20/22 04/21/22 03:59 03:59 03:59 Intake Total 1722 / 1722 2621.25 / 2626.00 1062.50 / 1062.50 Output Total / Balance 1697 / 1697 2621.25 / 2626.00 1062.50 / 1062.50 Lab / Micro Data Result Diagrams: 04/20/22 06:20 04/20/22 06:20 Labs: Laboratory Results - last 24 hr 04/20/22 06:20: WBC 20.9 H, RBC 2.87 L, Hgb 8.5 L, Hct 25.7 L, MCV 89.5, MCH 29.6, MCHC 33.1, RDW Std Deviation 46.5 H, RDW Coeff of Yemi 14.2, Plt Count 480 H, MPV 9.7, Immature Gran % (Auto) 1.200 H, Neut % (Auto) 89.3 H, Lymph % (Auto) 4.7 L, [place] % (Auto) 3.5, Eos % (Auto) 1.0, Baso % (Auto) 0.3, Absolute Neuts (auto) 18.7 H, Absolute Lymphs (auto) 0.98, Nucleated RBC % 0 04/20/22 06:20: Sodium 137, Potassium 3.8, Chloride 104, Carbon Dioxide 27.0, Anion Gap 6, BUN 48 H, Creatinine 1.53 H, Estim Creat Clear Calc 40.15, Est GFR (MDRD) Af Amer 57 L, Est GFR (MDRD) Non-Af 47 L, BUN/Creatinine Ratio 31.4 H, Glucose 104, Calcium 8.2 L 04/20/22 06:20: Iron 16 L, TIBC 115 L, Iron Saturation 13.9 L, Ferritin 6591 H Micro: Microbiology 04/18/22 04:46 Blood Culture (Wb) - Left Hand Blood Culture - Preliminary No growth in 48 hours. 04/18/22 04:32 Blood Culture (Wb) - Anticubital Left Blood Culture - Preliminary No growth in 48 hours. 04/18/22 22:55 Nasal Secretion SARS-CoV-2 Antigen (Rapid) - Final 04/18/22 01:10 Nasal Secretion SARS-CoV-2 & FLU Antigen (Rapid) - Final Physical Exam Narrative General: Alert, Oriented x3, Cooperative, No apparent distress HEENT: Atraumatic, PERRLA, EOMI, Normocephalic Oral: Moist Mucosa Neck: Supple, No JVD Lungs: Diminished, Normal air movement, No rhonchi, No wheeze, No rales Cardiovascular: Regular rate and rhythm, Normal S1, Normal S2, No murmurs Abdomen: Soft, Non Tender, Non-Distended, No Hepato-splenomegaly Extremities: No edema, Capillary Refill Less than 3 Seconds Skin: No rashes, No breakdown Musculoskeletal: No Tenderness to Palpation of Joints or Extremities Neurological: Cranial nerves II-XII grossly intact, Motor Exam 5/5 strength throughout, Sensory exam intact to light touch and pain Psych/Mental Status: Flat affect, Appropriate Assessment & Plan Assessment/Plan (1) NAZANIN (acute kidney injury): (2) Debility: (3) Leukocytosis: (4) Pericardial effusion: PLAN: Plan 1. NAZANIN with debility/lung cancer/anemia ? Renal function and leukocytosis have both worsened ? He is intermittently febrile however blood cultures are negative, CT of the chest was negative for pneumonia. We will send urine for culture, as it did have 1+ bacteria though the UA was not highly consistent with a UTI. ? Has been COVID tested twice which are negative. ? Unsure as to the pathology of his nodule but he did have a lung resection at [facility] in [place] on 08/30/2021. ? Continue with PT/OT for possible placement ? We will try to obtain a stool guaiac to evaluate for any blood loss, as he converted to normal sinus rhythm and his echo that demonstrated normal left atrium, will discontinue his therapeutic Lovenox, this was likely a reaction to his illness ? Iron studies show an elevated ferritin consistent with inflammation 2. New onset A. fib/pericardial effusion/HTN/HLD ? CTA of his chest demonstrated reactive adenopathy with pleural effusions and a moderate pericardial effusion however echo made no comment on pericardial effusion ? EF on the echo was normal ? He did convert to normal sinus rhythm with the addition of p.o. metoprolol to his Cardizem drip, will continue with metoprolol 25 mg p.o. twice daily as well as Cardizem 240 mg daily ? Continue with Lipitor DVT: Therapeutic Lovenox Charges/Coding Visit Charges Inpatient E&M: 71415 Subs Hosp L2
[2022-04-20] MEDS: Ceftriaxone 1 GM/50 ML BAG IV (16:29)
[2022-04-20] MEDS: Ondansetron 4 MG/2 ML Vial IV (20:11)
[2022-04-20] MEDS: 0.9% Saline Lock 10 ML Syringe IV (20:11)
--- NOTE | 2022-04-20 20:11 | CPS ---
Pt was found covered in blood, stated that he vomited the blood all over himself. Aerosol treatments were not given due to aspiration.
--- NOTE | 2022-04-20 20:19 | PCM.PN.BLA ---
Progress Note Nurse reported patient has had bloody emesis x3 each time with 100 mL of vomitus. Nurse reports that patient abdomen is firm. We will put NG to low intermittent wall suction. Will order Protonix bolus plus drip. Patient is on therapeutic dose of Lovenox for A. fib. Discontinue if Lovenox. SCDs ordered.
--- NOTE | 2022-04-20 20:50 | RAD_ITS ---
EXAM: XR ABDOMEN, 1 VIEW CLINICAL INDICATION: NGT placement -- KUB with both diaphragms for NG/OG Verification TECHNIQUE: Frontal supine view of the abdomen/pelvis. This report was created using [employer] report generation technology. COMPARISON: None. FINDINGS: LOWER THORAX: Bilateral pleural effusions. GASTROINTESTINAL TRACT: Unremarkable. Non-obstructive. No bowel or stomach distention. ORGANS: Unremarkable as visualized. No organomegaly. No abnormal calcifications. BONES/JOINTS: Degenerative findings in the thoracic spine. SOFT TISSUES: No acute pathology. TUBES, LINES AND DEVICES: There is a feeding tube/ nasogastric tube noted. The tip is in the region of the stomach. RAD/Abdomen Single View (Portable) IMPRESSION: 1. Bilateral pleural effusions. 2. There is a feeding tube/ nasogastric tube noted. The tip is in the region of the stomach. Electronically Signed: Luis Mcdowell MD at 21:11 EST ,
[2022-04-20] MEDS: Atorvastatin Calcium 20 MG Tablet PO (21:06)
--- NOTE | 2022-04-20 21:35 | CON.PCM.SX_ITS ---
Assessment & Plan Assessment/Plan (1) Hematemesis of unknown cause: PLAN: This is a 76-year-old male who is admitted for generalized debility and atrial fibrillation with unexplained leukocytosis who had a bout of hematemesis this evening. Patient's prescribed Lovenox was immediately withdrawn and nasogastric tube was placed with approximately half a liter dark brown output. Patient's vitals have overall remained stable from prior and patient demonstrates persistent atrial fibrillation. History is not possible given patient's mental status, but is obtained through patient's son who also is his next of kin. Patient's son confirms that his father does have a history of heavy alcohol use. I reviewed with son over the phone the need to proceed with a further investigation of this issue using EGD and all possible endoscopic m eans to control bleeding should be found persistent. Consent was obtained for this procedure and were also obtained for administration of blood products if deemed necessary. To this end, patient has had a 1 g/dL drop of his hemoglobin in the past 15 hours. I am reordering a repeat hemoglobin in approximately 6 hours to assess for stability. I have informed son that patient may require procedure ahead of current planned time tomorrow morning. HPI Consult Data Date of Consult: 04/20/22 HPI Narrative Reason for Consultation: Hematemesis HPI Narrative: EUGENIA DONOHUE, is a 76 M who presented to clear at the prompting of his son due to generalized and inability to participate in his own ADLs. Majority of the history is obtained from patient's son who states that his father has been living on his property for the past 6 months. Beginning January 2022 patient sprained his ankle and has been in somewhat of a decline since. However, this decline intensified over the past 2 weeks when patient's son noted that his [facility] er was not eating or moving for himself. At baseline his father will respond to questions but there is no significant conversation. This baseline has been present for at least 1 year. He does note that his father was formally a heavy drinker and could consume 6-8 beers or 1 bottle of whiskey each day. He notes that this alcohol consumption has decreased over the last several years, but his father has been truly lifelong drinker. Surgery was asked to evaluate patient after nursing noted patient had a rather large bout of hematemesis during evening shift. A nasogastric tube was placed and patient had just over a half a liter of dark brown output. Patient's Lovenox that had been prescribed for recent diagnosis of atrial fibrillation, was immediately discontinued. Patient was also prescribed Protonix drip. [facility] Medical History (Updated 04/20/22 @ 21:[address] Tommie Hall MD) HTN (hypertension) Lung cancer Home Medications albuterol sulfate 90 mcg/actuation aerosol inhaler 1 - 2 puff inhalation Q4H PRN SOB 04/18/22 [History Last Taken Unknown] amlodipine 5 mg-benazepril 10 mg capsule 1 cap PO DAILY 04/18/22 [History Last Taken Unknown] atorvastatin 20 mg tablet 20 mg PO QHS 04/18/22 [History Last Taken Unknown] fluticasone fur. 100 mcg-umeclid 62.5 mcg-vilant 25 mcg inhalat.powder (Trelegy Ellipta) 1 inh inhalation DAILY 04/18/22 [History Last Taken Unknown] Allergy/AdvReac Type Severity Reaction Status Date / Time No Known Allergies Allergy Verified 04/17/22 22:46 Social History Smoking Status: Current every day smoker tobacco type: cigarettes Physical Exam Const Constitutional Narrative: Patient oriented to self only and does not answer questions General Appearance: cooperative Eyes Eyes Narrative: No scleral icterus GI GI Narrative: Oddly distended, soft, nontender to palpation. No visible herniation. No fluid wave. Neuro Neuro Narrative: Fine tremor present when patient asked to extend left upper extremity Lab / Micro Data Result Diagrams: 04/20/22 21:25 04/20/22 06:20 Labs: Laboratory Results - last 24 hr 04/20/22 06:20: WBC 20.9 H, RBC 2.87 L, Hgb 8.5 L, Hct 25.7 L, MCV 89.5, MCH 29.6, MCHC 33.1, RDW Std Deviation 46.5 H, RDW Coeff of Yemi 14.2, Plt Count 480 H, MPV 9.7, Immature Gran % (Auto) 1.200 H, Neut % (Auto) 89.3 H, Lymph % (Auto) 4.7 L, [place] % (Auto) 3.5, Eos % (Auto) 1.0, Baso % (Auto) 0.3, Absolute Neuts (auto) 18.7 H, Absolute Lymphs (auto) 0.98, Nucleated RBC % 0 04/20/22 06:20: Sodium 137, Potassium 3.8, Chloride 104, Carbon Dioxide 27.0, Anion Gap 6, BUN 48 H, Creatinine 1.53 H, Estim Creat Clear Calc 40.15, Est GFR (MDRD) Af Amer 57 L, Est GFR (MDRD) Non-Af 47 L, BUN/Creatinine Ratio 31.4 H, Glucose 104, Calcium 8.2 L 04/20/22 06:20: Iron 16 L, TIBC 115 L, Iron Saturation 13.9 L, Ferritin 6591 H Micro: Microbiology 04/20/22 20:55 Stool Stool Occult Blood (XI) - Final Occult Blood Positive 04/20/22 15:35 Stool Stool Occult Blood (XI) - Final 04/18/22 04:46 Blood Culture (Wb) - Left Hand Blood Culture - Preliminary No growth in 48 hours. 04/18/22 04:32 Blood Culture (Wb) - Anticubital Left Blood Culture - Preliminary No growth in 48 hours. Radiology Impression KUB X-Ray 04/20/22 20:50 IMPRESSION: 1. Bilateral pleural effusions. 2. There is a feeding tube/ nasogastric tube noted. The tip is in the region of the stomach. Electronically Signed: Luis Mcdowell MD at 21:11 EST , Charges/Coding Visit Charges Inpatient E&M: 56297 Init Hosp L2
[2022-04-20 21:36] LABS: Hematocrit 22.4 % (40-54); Hemoglobin 7.4 g/dL (13.0-16.5)
--- NOTE | 2022-04-20 21:54 | NURSING ---
Patient oxygen level 81% on room applied 4L 94%.
--- NOTE | 2022-04-20 23:38 | RAD_ITS ---
INDICATION: ng tube replaced EXAMINATION/TECHNIQUE: X-RAY - XR Abdomen 1 View COMPARISON: Earlier same date at 8:50 PM, 04/20/2022 FINDINGS: Tubes and lines: 1. NG tube extends into the stomach, appears to be turned upon itself within the proximal stomach. 2. Multiple overlying monitor leads and postoperative changes in the lumbar spine.. BOWEL GAS PATTERN: Non-obstructive. No bowel or stomach distention. FREE AIR: Not assessed on a single supine view. ORGANOMEGALY: Not seen. CALCIFICATIONS: No abnormal calcifications observed. LOWER CHEST: Bibasilar atelectasis, and a RIGHT effusion is suspected. BONES AND SOFT TISSUES: Chronic lumbar spondylosis and postoperative changes in the lower lumbar spine. RAD/Abdomen Single View (Portable) IMPRESSION: 1. NG tube extends into the proximal stomach and appears to be turns upon itself in the proximal stomach. 2. Normal bowel gas pattern. 3. Bibasilar atelectasis greater on the RIGHT than LEFT and RIGHT effusion suspected. Electronically Signed: Wale Dunn MD at 0:43 EST ,
[2022-04-21] VITALS (35 sets, daily range): BP systolic 75–114; BP diastolic 42–71; PULSE 94–113; RESP 18–33; TEMP 36.4–39; O2SAT 89–100; BMI 22.1
[2022-04-21] MEDS: 0.9% Normal Saline 1,000 ML 999 ML IV ×2 (00:38→04:50)
[2022-04-21 02:24] LABS: Absolute Lymphocyte Count 1.18 X10^3/uL (0.83-4.51); Absolute Neutrophil Count 14.2 X10^3/uL (2.0-7.7); Basophil# 0.06 X10^3/uL; Basophil% 0.4 % (0-1); Eosinophil# 0.18 X10^3/uL; Eosinophils% 1.1 % (0-5); Hematocrit 19.4 % (40-54); Hemoglobin 6.3 g/dL (13.0-16.5); Lymphocyte # 1.18 X10^3/ul (0.83-4.51); Lymphocyte % 7.1 % (19-41); Mean Corp Hgb Conc 32.5 g/dL (32-36); Mean Corpuscular Volume 89.4 fL (80-94); Mean Platelet Vol. 9.6 fl (6.2-12.0); Monocyte# 0.68 X10^3/uL; Monocyte% 4.1 % (0-10); NRBC Flagged by Analyzer 0 % (0-5); Neutrophil # 14.16 X10^3/uL (2.7-7.7); Neutrophil % 85.7 % (47-70); Platelet Count 400 K/mm3 (150-450); RBC Distribution Width CV 14.3 % (11.6-14.6); RBC Distribution Width SD 46.5 fl (35.1-43.9); Red Blood Count 2.17 M/mm3 (4.6-6.2); White Blood Count 16.5 K/mm3 (4.4-11.0)
[2022-04-21 03:05] LABS: ALB/GLOB Ratio 0.3 RATIO (0.9-2.4); AST(SGOT) 102 U/L (15-37); Alanine Aminotransfer ALT/SGPT 83 U/L (16-61); Albumin, Serum 1.3 g/dL (3.2-5.0); Alkaline Phosphatase 66 U/L (45-117); Anion Gap 8 (5-15); BUN 61 mg/dL (7-18); BUN/Creat Ratio 30.2 RATIO (10-20); Calcium,Total 7.2 mg/dL (8.5-10.1); Chloride 108 mmol/L (98-107); Creatinine, Serum 2.02 mg/dL (0.70-1.30); EST Glomerular Filtration Rate 34 mL/min (>60); Est Glom Filt Rate - Afr Amer 42 mL/min (>60); Estimated Creatinine Clearance 30.41 ml/min; Globulin 4.1 g/dL (2.2-4.2); Glucose 112 mg/dL (74-106); Potassium 3.8 mmol/L (3.5-5.1); Protein, Total 5.4 g/dL (6.4-8.2); Sodium Level 139 mmol/L (136-145)
[2022-04-21] MEDS: Ipratropium/Albuterol Sulfate 3 ML AMPUL.NEB INHALATION ×2 (07:19→14:05)
[2022-04-21] MEDS: Budesonide Respules 0.5 MG/2 ML AMPUL.NEB. INHALATION (07:20)
[2022-04-21] MEDS: Ceftriaxone 1 GM/50 ML BAG IV (09:07)
--- NOTE | 2022-04-21 10:56 | OP.CCLET_ITS ---
04/21/2022 Yessenialucas Lee Re : Upper GI endoscopy procedure for Eamon Lee This procedure was performed on Thursday, April 21, 2022. My impressions and recommendations are as follows: Impressions : - Mucosal nodule found in the duodenum. No specimens collected. 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 No specimens collected. - Z-line irregular, 43 cm from the incisors. No specimens collected. 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 No specimens collected. - Non-bleeding esophageal ulcer. No specimens collected. Recommendations : - [facility]. - Clear liquid diet today. - Use Protonix (pantoprazole) 80 mg IV BID today. - Continue present medications. My findings are described in the full procedure note, which is enclosed. If I can be of further assistance, please feel free to contact me at Doctor phone number(s): , Work: . Sincerely, Tommie Hall MD 04/21/2022 10:55:41 AM This report has been signed electronically.
--- NOTE | 2022-04-21 10:56 | OP.EGD_ITS ---
Patient Name: Eamon Drummond Procedure Date: 04/21/2022 10:10 AM Date of : 1945 Age: 76 Procedure: Upper GI endoscopy Indications: Coffee-ground emesis, Hematemesis Providers: Tommie Hall MD Medicines: See the Anesthesia note for documentation of the administered medications Patient Profile: Refer to note in patient chart for documentation of history and physical. Complications: No immediate complications. Estimated blood loss: None. Procedure: Pre-Anesthesia Assessment: - The heart rate, respiratory rate, oxygen saturations, blood pressure, adequacy of pulmonary ventilation, and response to care were monitored throughout the procedure. After obtaining informed consent, the endoscope was passed under direct vision. Throughout the procedure, the patient's blood pressure, pulse, and oxygen saturations were monitored continuously. The Endoscope was introduced through the mouth, and advanced to the second part of duodenum. The upper GI endoscopy was accomplished without difficulty. The patient tolerated the procedure fairly well. Scope In: 10:12:32 AM Scope Out: 10:31:29 AM Total Procedure Duration Time 0 hours 18 minutes 57 seconds Findings: A single 10 mm mucosal nodule with a localized distribution was found in the duodenal bulb. No biopsies or other specimens were collected for this exam. Two 5 mm no bleeding angioectasias were found at the incisura. No biopsies or other specimens were collected for this exam. The exam of the stomach was otherwise normal. The Z-line was irregular and was found 43 cm from the incisors. No biopsies or other specimens were collected for this exam. 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 The maximum longitudinal extent of these mucosal changes was 6 cm in length. No biopsies or other specimens were collected for this exam. One cratered and superficial esophageal ulcer with no bleeding and visible vessel with stigmata of recent bleeding was found 35 cm from the incisors. No biopsies or other specimens were collected for this exam. Impression: - Mucosal nodule found in the duodenum. No specimens collected. 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 No specimens collected. - Z-line irregular, 43 cm from the incisors. No specimens collected. 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 No specimens collected. - Non-bleeding esophageal ulcer. No specimens collected. Recommendation: - [facility] to [facility] for [facility] care. - Clear liquid diet today. - Use Protonix (pantoprazole) 80 mg IV BID today. - Continue present medications. Procedure Code(s): --- Professional --- 88752, Esophagogastroduodenoscopy, flexible, transoral; diagnostic, including collection of specimen(s) by brushing or washing, when performed (separate procedure) Diagnosis Code(s): --- Professional --- K31.89, Other diseases of stomach and duodenum K31.819, Angiodysplasia of stomach and duodenum without bleeding K22.8, Other specified diseases of esophagus K22.10, Ulcer of esophagus without bleeding K92.0, Hematemesis CPT copyright 2017 [employer]. All rights reserved. The codes documented in this report are preliminary and upon supervisor chemical review may be revised to meet current compliance requirements. Tommie Hall MD 04/21/2022 10:55:41 AM This report has been signed electronically. Number of Addenda: 0 Note Initiated On: 04/21/2022 10:10 AM
--- NOTE | 2022-04-21 11:22 | PCM.PN.HOSP ---
Subjective Subjective To large volume hematemesis overnight status posttransfusion of 2 units Objective Data Objective Data Vital Signs: Vital Signs Temp Pulse Resp BP Pulse Ox O2 Del Method O2 Flow Rate 98.5 F 109 H 20 H 105/56 L 96 Nasal Cannula 2 04/21/22 11:21 04/21/22 11:21 04/21/22 11:21 04/21/22 11:21 04/21/22 11:21 04/21/22 11:21 04/21/22 11:21 Oxygen Flow Rate (L/min) 2 Oxygen Delivery Method Nasal Cannula Weight: 150 lb Body Mass Index (BMI) 22.1 Intake & Output: Intake and Output for Last 24 Hours 04/20/22 04/21/22 04/22/22 03:59 03:59 03:59 Intake Total 2621.25 / 2626.00 3878.75 / 3878.75 2247.33 / 2247.33 Output Total 1050 / 1050 1350 / 1350 Balance 2621.25 / 2626.00 2828.75 / 2828.75 897.33 / 897.33 Lab / Micro Data Result Diagrams: 04/21/22 02:06 04/21/22 02:06 Labs: Laboratory Results - last 24 hr 04/20/22 06:20: Iron 16 L, TIBC 115 L, Iron Saturation 13.9 L, Ferritin 6591 H 04/20/22 21:25: Hgb 7.4 L, Hct 22.4 L 04/20/22 21:25: Blood Type O POSITIVE, Antibody Screen NEGATIVE 04/20/22 21:25: Crossmatch See Detail 04/21/22 02:06: Sodium 139, Potassium 3.8, Chloride 108 H, Carbon Dioxide 23.0, Anion Gap 8, BUN 61 H, Creatinine 2.02 H, Estim Creat Clear Calc 30.41, Est GFR (MDRD) Af Amer 42 L, Est GFR (MDRD) Non-Af 34 L, BUN/Creatinine Ratio 30.2 H, Glucose 112 H, Calcium 7.2 L, Total Bilirubin 0.20, AST 102 H, ALT 83 H, Alkaline Phosphatase 66, Total Protein 5.4 L, Albumin 1.3 L, Globulin 4.1, Albumin/Globulin Ratio 0.3 L 04/21/22 02:06: WBC 16.5 H, RBC 2.17 L, Hgb 6.3 L, Hct 19.4 L, MCV 89.4, MCH 29.0, MCHC 32.5, RDW Std Deviation 46.5 H, RDW Coeff of Yemi 14.3, Plt Count 400, MPV 9.6, Immature Gran % (Auto) 1.600 H, Neut % (Auto) 85.7 H, Lymph % (Auto) 7.1 L, [place] % (Auto) 4.1, Eos % (Auto) 1.1, Baso % (Auto) 0.4, Absolute Neuts (auto) 14.2 H, Absolute Lymphs (auto) 1.18, Nucleated RBC % 0 Micro: Microbiology 04/18/22 02:20 Urine, Clean Catch Urine Culture - Final Mixed Gram Positive Organisms 04/20/22 20:55 Stool Stool Occult Blood (XI) - Final Occult Blood Positive 04/20/22 15:35 Stool Stool Occult Blood (XI) - Final 04/18/22 04:46 Blood Culture (Wb) - Left Hand Blood Culture - Preliminary No growth in 48 hours. 04/18/22 04:32 Blood Culture (Wb) - Anticubital Left Blood Culture - Preliminary No growth in 48 hours. 04/18/22 22:55 Nasal Secretion SARS-CoV-2 Antigen (Rapid) - Final 04/18/22 01:10 Nasal Secretion SARS-CoV-2 & FLU Antigen (Rapid) - Final Radiography Diagnostic Testing: Radiology Impression KUB X-Ray 04/20/22 20:50 IMPRESSION: 1. Bilateral pleural effusions. 2. There is a feeding tube/ nasogastric tube noted. The tip is in the region of the stomach. Electronically Signed: Luis Mcdowell MD at 21:11 EST , KUB X-Ray 04/20/22 23:38 IMPRESSION: 1. NG tube extends into the proximal stomach and appears to be turns upon itself in the proximal stomach. 2. Normal bowel gas pattern. 3. Bibasilar atelectasis greater on the RIGHT than LEFT and RIGHT effusion suspected. Electronically Signed: Wale Dunn MD at 0:43 EST , Physical Exam Narrative General: Not responding to verbal stimuli prior to EGD vital signs are stable, NG tube is in place, output is nonbloody HEENT: Atraumatic, PERRLA, EOMI, Normocephalic Oral: Moist Mucosa Neck: Supple, No JVD Lungs: Diminished, Normal air movement, No rhonchi, No wheeze, No rales Cardiovascular: Tachycardic and regular rhythm, Normal S1, Normal S2, No murmurs Abdomen: Soft, Non Tender, Non-Distended, No Hepato-splenomegaly Extremities: No edema, Capillary Refill Less than 3 Seconds Skin: No rashes, No breakdown Musculoskeletal: No Tenderness to Palpation of Joints or Extremities Neurological: Cranial nerves II-XII grossly intact, Motor Exam 5/5 strength throughout, Sensory exam intact to light touch and pain Psych/Mental Status: Resting not responding to verbal cues Assessment & Plan Assessment/Plan (1) NAZANIN (acute kidney injury): (2) Debility: (3) Leukocytosis: (4) Pericardial effusion: PLAN: Plan 1. NAZANIN with debility/lung cancer/anemia from a GI bleed ? Renal function and leukocytosis have both worsened ? He is intermittently febrile however blood cultures are negative, CT of the chest was negative for pneumonia. Urine culture is as mixed ember ? Continue with PPI appreciate general surgery consult, will repeat an H&H when he is back to the floor, completed 2 units of PRBCs ? Has been COVID tested twice which are negative. ? Unsure as to the pathology of his nodule but he did have a lung resection at [facility] in [place] on 08/30/2021. ? Continue with PT/OT for possible placement ? We will try to obtain a stool guaiac to evaluate for any blood loss, as he converted to normal sinus rhythm and his echo that demonstrated normal left atrium, will discontinue his therapeutic Lovenox, this was likely a reaction to his illness ? Iron studies show an elevated ferritin consistent with inflammation 2. New onset A. fib/pericardial effusion/HTN/HLD ? CTA of his chest demonstrated reactive adenopathy with pleural effusions and a moderate pericardial effusion however echo made no comment on pericardial effusion ? EF on the echo was normal ? He did convert to normal sinus rhythm with the addition of p.o. metoprolol to his Cardizem drip, will continue with metoprolol 25 mg p.o. twice daily as well as Cardizem 240 mg daily ? Continue with Lipitor DVT: SCDs Charges/Coding Visit Charges Inpatient E&M: 06705 Subs Hosp L2
[2022-04-21 11:39] LABS: Absolute Lymphocyte Count 0.76 X10^3/uL (0.83-4.51); Absolute Neutrophil Count 15.4 X10^3/uL (2.0-7.7); Basophil# 0.05 X10^3/uL; Basophil% 0.3 % (0-1); Eosinophil# 0.28 X10^3/uL; Eosinophils% 1.6 % (0-5); Hematocrit 24.6 % (40-54); Hemoglobin 7.9 g/dL (13.0-16.5); Lymphocyte # 0.76 X10^3/ul (0.83-4.51); Lymphocyte % 4.4 % (19-41); Mean Corp Hgb Conc 32.1 g/dL (32-36); Mean Corpuscular Volume 90.4 fL (80-94); Mean Platelet Vol. 9.6 fl (6.2-12.0); Monocyte# 0.69 X10^3/uL; Monocyte% 3.9 % (0-10); NRBC Flagged by Analyzer 0 % (0-5); Neutrophil # 15.39 X10^3/uL (2.7-7.7); Neutrophil % 88.1 % (47-70); Platelet Count 369 K/mm3 (150-450); RBC Distribution Width CV 14.5 % (11.6-14.6); RBC Distribution Width SD 47.5 fl (35.1-43.9); Red Blood Count 2.72 M/mm3 (4.6-6.2); White Blood Count 17.5 K/mm3 (4.4-11.0)
[2022-04-21 11:47] LABS: AST(SGOT) 86 U/L (15-37); Alanine Aminotransfer ALT/SGPT 79 U/L (16-61); Albumin, Serum 1.3 g/dL (3.2-5.0); Alkaline Phosphatase 66 U/L (45-117); Bilirubin, Direct 0.14 mg/dL (0.00-0.30); Globulin 4.1 g/dL (2.2-4.2); Protein, Total 5.4 g/dL (6.4-8.2)
[2022-04-21 11:54] LABS: International Normalized Ratio 1.3; Partial Thromboplast Time 32.5 Seconds (24.1-36.2); Prothrombin Time (Protime)PT. 15.9 SECONDS (11.7-14.9)
--- NOTE | 2022-04-21 13:04 | PCM.PN.BLA ---
Progress Note Seen and examined prior to endoscopy (separate note for procedure). Patient did to be resting comfortably in his bed. He was more responsive and had appropriate responses to questioning. He denied any abdominal discomfort. Physical Exam Const alert Constitutional Narrative: Oriented to person and appropriately responsive to questioning Resp normal respiratory effort GI GI Narrative: Nasogastric tube with clear bilious output, but dark or coffee grounds character and canister. Abdomen nondistended, soft, nontender to palpation x4 quadrants Assessment & Plan Assessment/Plan (1) Hematemesis of unknown cause: PLAN: 76-year-old male with acute presentation of hematemesis yesterday while on Lovenox therapy for atrial fibrillation. Underwent diagnostic EGD today with findings of no acute bleeding. I did identify a visible vessel and associated esophageal ulcer as probable bleeding cause. Alongside this finding patient had evidence of a duodenal bulb ulcer, angiectasia of the gastric incisura, and long segment Negrete's esophagus. No biopsies were undertaken given patient's acute status without knowledge of coagulation studies either. Based on above findings recommend: ? Discontinuation of nasogastric tube ? Clear liquid diet without carbonation ? Hold any anticoagulation ? Monitor H&H closely and avoid significant hypertension ? Protonix 80 mg twice daily ? Outpatient follow-up for additional esophageal ulcers as well as probable Negrete's esophagus Above plan was communicated to patient's [place] attending, Dr. Madera as well as patient's son and next of kin.
[2022-04-21] MEDS: Menthol/Lanolin/Calamine/Znox 113 GM Tube 1 APPLIC TOPICAL (13:08)
[2022-04-21] MEDS: Acetaminophen 325 MG Tablet 650 MG PO (15:12)
[2022-04-21] MEDS: 0.9% Normal Saline 1,000 ML 75 ML IV (16:26)
[2022-04-21 20:33] LABS: Hematocrit 25.9 % (40-54); Hemoglobin 8.2 g/dL (13.0-16.5)
[2022-04-21] MEDS: Atorvastatin Calcium 20 MG Tablet PO (22:27)
[2022-04-21] MEDS: Metoprolol Tartrate 25 MG Tablet PO (22:28)
[2022-04-22] VITALS (26 sets, daily range): BP systolic 84–133; BP diastolic 45–67; PULSE 83–116; RESP 20–38; TEMP 36.7–39.3; O2SAT 90–100
[2022-04-22] MEDS: Acetaminophen 325 MG Tablet 650 MG PO ×3 (01:32→21:34)
[2022-04-22] MEDS: 0.9% Normal Saline 1,000 ML 75 ML IV ×2 (06:05→21:34)
[2022-04-22 06:51] LABS: Anion Gap 7 (5-15); BUN 41 mg/dL (7-18); BUN/Creat Ratio 23.3 RATIO (10-20); Calcium,Total 7.4 mg/dL (8.5-10.1); Chloride 111 mmol/L (98-107); Creatinine, Serum 1.76 mg/dL (0.70-1.30); EST Glomerular Filtration Rate 40 mL/min (>60); Est Glom Filt Rate - Afr Amer 49 mL/min (>60); Glucose 111 mg/dL (74-106); Potassium 3.5 mmol/L (3.5-5.1); Sodium Level 142 mmol/L (136-145)
[2022-04-22] MEDS: Budesonide Respules 0.5 MG/2 ML AMPUL.NEB. INHALATION (07:00)
[2022-04-22] MEDS: Ipratropium/Albuterol Sulfate 3 ML AMPUL.NEB INHALATION ×2 (07:00→13:25)
--- NOTE | 2022-04-22 08:39 | PCM.PN.SRG ---
Subjective Subjective Patient seen and examined during afternoon rounds. He is found sitting in bed watching television. He denies any further vomiting today. He confirms that he has been drinking liquids without difficulty and denies any abdominal pain. Objective Data Objective Data Vital Signs: Vital Signs Temp Pulse Resp BP Pulse Ox O2 Del Method O2 Flow Rate 98.6 F 89 20 H 93/54 L 98 Nasal Cannula 4 04/22/22 04:00 04/22/22 04:00 04/22/22 04:00 04/22/22 04:00 04/22/22 04:00 04/22/22 08:33 04/22/22 08:33 Oxygen Flow Rate (L/min) 4 Oxygen Delivery Method Nasal Cannula Weight: 150 lb Body Mass Index (BMI) 22.1 Intake & Output: Intake and Output for Last 24 Hours 04/20/22 04/21/22 04/22/22 23:59 23:59 23:59 Intake Total 2723.75 / 2723.75 4201.16 / 4201.16 1116.92 / 1116.92 Output Total 1050 / 1050 3100 / 3100 850 / 850 Balance 1673.75 / 1673.75 1101.16 / 1101.16 266.92 / 266.92 Lab / Micro Data Result Diagrams: 04/21/22 20:15 04/22/22 05:31 Labs: Laboratory Results - last 24 hr 04/20/22 21:25: Crossmatch See Detail 04/21/22 11:20: PT 15.9 H, INR 1.3, APTT 32.5 04/21/22 11:20: WBC 17.5 H, RBC 2.72 L, Hgb 7.9 L, Hct 24.6 L, MCV 90.4, MCH 29.0, MCHC 32.1, RDW Std Deviation 47.5 H, RDW Coeff of Yemi 14.5, Plt Count 369, MPV 9.6, Immature Gran % (Auto) 1.700 H, Neut % (Auto) 88.1 H, Lymph % (Auto) 4.4 L, [place] % (Auto) 3.9, Eos % (Auto) 1.6, Baso % (Auto) 0.3, Absolute Neuts (auto) 15.4 H, Absolute Lymphs (auto) 0.76 L, Nucleated RBC % 0 04/21/22 11:20: Total Bilirubin 0.20, Direct Bilirubin 0.14, AST 86 H, ALT 79 H, Alkaline Phosphatase 66, Total Protein 5.4 L, Albumin 1.3 L, Globulin 4.1 04/21/22 20:15: Hgb 8.2 L, Hct 25.9 L 04/22/22 05:31: Sodium 142, Potassium 3.5, Chloride 111 H, Carbon Dioxide 24.0, Anion Gap 7, BUN 41 H, Creatinine 1.76 H, Estim Creat Clear Calc 34.90, Est GFR (MDRD) Af Amer 49 L, Est GFR (MDRD) Non-Af 40 L, BUN/Creatinine Ratio 23.3 H, Glucose 111 H, Calcium 7.4 L Micro: Microbiology 04/18/22 02:20 Urine, Clean Catch Urine Culture - Final Mixed Gram Positive Organisms 04/20/22 20:55 Stool Stool Occult Blood (XI) - Final Occult Blood Positive 04/20/22 15:35 Stool Stool Occult Blood (XI) - Final 04/18/22 04:46 Blood Culture (Wb) - Left Hand Blood Culture - Preliminary No growth in 48 hours. 04/18/22 04:32 Blood Culture (Wb) - Anticubital Left Blood Culture - Preliminary No growth in 48 hours. 04/18/22 22:55 Nasal Secretion SARS-CoV-2 Antigen (Rapid) - Final 04/18/22 01:10 Nasal Secretion SARS-CoV-2 & FLU Antigen (Rapid) - Final Physical Exam Const no apparent distress Constitutional Narrative: Oriented to person Resp normal respiratory effort GI GI Narrative: Nondistended soft and nontender to palpation x4 quadrants Assessment & Plan Assessment/Plan (1) Hematemesis of unknown cause: PLAN: 76-year-old male with acute presentation of hematemesis 2 days ago while on Lovenox therapy for atrial fibrillation. Underwent diagnostic EGD 04/21/2022 with findings of no acute bleeding. I did identify a visible vessel and associated esophageal ulcer as probable bleeding cause. Alongside this finding patient had evidence of a duodenal bulb ulcer, angiectasia of the gastric incisura, and long segment Negrete's esophagus. No biopsies were undertaken given patient's acute status without knowledge of coagulation studies either. According the patient there is been no further vomiting of coffee grounds or blood. Appears to be tolerating his advanced to a liquid diet. From a surgical standpoint patient is okay to advance diet, but would continue IV PPI today and then may consider transition to oral tomorrow. Based on above findings recommend: ? Okay to advance diet today (not certain what other plans hospitalist service has for patient) ? Hold any anticoagulation ? Monitor H&H closely and avoid significant hypertension ? Continue Protonix 80 mg twice daily ? Outpatient follow-up for additional esophageal ulcers as well as probable Negrete's esophagus Charges/Coding Visit Charges Inpatient E&M: 87331 Subs Hosp L2
--- NOTE | 2022-04-22 08:59 | CASEMGMT ---
ZINA sent updates to [facility] via [employer]. Patient's insurance is waiving pre-certification. Plan: [facility] under skilled level of care when patient medically ready. Teagan MORE
[2022-04-22] MEDS: Metoprolol Tartrate 25 MG Tablet PO (09:02)
[2022-04-22] MEDS: dilTIAZem CD 240 MG Capsule PO (09:03)
[2022-04-22] MEDS: Ensure Clear 120 ML Liquid PO ×2 (09:06→22:15)
--- NOTE | 2022-04-22 14:53 | CASEMGMT ---
ZINA notified Rachael via [employer] and phone that patient is not ready for discharge today. Teagan Galo [employer] ARGEN[facility]
--- NOTE | 2022-04-22 15:29 | PN.HOSP_ITS ---
Subjective Subjective Follow-up for visual vessel with ulcer in the distal esophagus and NAZANIN Objective Data Objective Data Vital Signs: Vital Signs Temp Pulse Resp BP Pulse Ox O2 Del Method O2 Flow Rate 98.0 F 83 28 H 84/45 L 97 Nasal Cannula 6 04/22/22 13:46 04/22/22 15:01 04/22/22 15:01 04/22/22 15:01 04/22/22 15:01 04/22/22 15:05 04/22/22 15:05 Oxygen Flow Rate (L/min) 6 Oxygen Delivery Method Nasal Cannula Weight: 150 lb Body Mass Index (BMI) 22.1 Intake & Output: Intake and Output for Last 24 Hours 04/20/22 04/21/22 04/22/22 23:59 23:59 23:59 Intake Total 2723.75 / 2723.75 4201.16 / 4201.16 2541.92 / 2541.92 Output Total 1050 / 1050 3100 / 3100 1600 / 1600 Balance 1673.75 / 1673.75 1101.16 / 1101.16 941.92 / 941.92 Lab / Micro Data Result Diagrams: 04/21/22 20:15 04/22/22 05:31 Labs: Laboratory Results - last 24 hr 04/21/22 20:15: Hgb 8.2 L, Hct 25.9 L 04/22/22 05:31: Sodium 142, Potassium 3.5, Chloride 111 H, Carbon Dioxide 24.0, Anion Gap 7, BUN 41 H, Creatinine 1.76 H, Estim Creat Clear Calc 34.90, Est GFR (MDRD) Af Amer 49 L, Est GFR (MDRD) Non-Af 40 L, BUN/Creatinine Ratio 23.3 H, Glucose 111 H, Calcium 7.4 L Micro: Microbiology 04/18/22 02:20 Urine, Clean Catch Urine Culture - Final Mixed Gram Positive Organisms 04/20/22 20:55 Stool Stool Occult Blood (XI) - Final Occult Blood Positive 04/20/22 15:35 Stool Stool Occult Blood (IX) - Final 04/18/22 04:46 Blood Culture (Wb) - Left Hand Blood Culture - Preliminary No growth in 48 hours. 04/18/22 04:32 Blood Culture (Wb) - Anticubital Left Blood Culture - Preliminary No growth in 48 hours. 04/18/22 22:55 Nasal Secretion SARS-CoV-2 Antigen (Rapid) - Final 04/18/22 01:10 Nasal Secretion SARS-CoV-2 & FLU Antigen (Rapid) - Final Physical Exam Narrative Physical exam Patient denies abdominal pain. Physical exam General: Alert, Oriented x3, Cooperative in moderate respiratory distress HEENT: Atraumatic, PERRLA, EOMI, Normocephalic Oral: No Gingival or Mucosal Lesions/ Ulcerations Neck: Supple, No JVD, Negative Carotid Bruits Lungs: Air entry diminished in bilateral lung bases. Labored breathing, dyspnea at rest. Bilateral expiratory rhonchi. On 6 L of oxygen Cardiovascular: Regular rate, Regular Rhythm, Normal S1, Normal S2, No murmurs Abdomen: Bowel Sounds Present, Soft, Non Tender, Non-Distended : No renal angle tenderness. No suprapubic tenderness. Extremities: Mild bilateral ankle edema, Capillary Refill Less than 3 Seconds Skin: No rashes, No breakdown Musculoskeletal: No Tenderness to Palpation of Joints or Extremities, ROM restricted. Neurological: Cranial nerves II-XII grossly intact, DTR 2+/4 and Symmetrical, Neuro grossly intact Psych/Mental Status: Flat affect. Assessment & Plan Assessment/Plan (1) NAZANIN (acute kidney injury): (2) Debility: (3) Leukocytosis: (4) Pericardial effusion: PLAN: Plan 1. NAZANIN exact etiology unclear possible prerenal ? Initially renal function worsened. ? He is intermittently febrile however blood cultures are negative, CT of the chest was negative for pneumonia. Urine culture is as mixed ember ? Continue with PPI appreciate general surgery consult, will repeat an H&H when he is back to the floor, completed 2 units of PRBCs ? Has been COVID tested twice which are negative. ? Unsure as to the pathology of his nodule but he did have a lung resection at [facility] in [place] on 08/30/2021. ? Continue with PT/OT for possible placement ? We will try to obtain a stool guaiac to evaluate for any blood loss, as he converted to normal sinus rhythm and his echo that demonstrated normal left atrium, will discontinue his therapeutic Lovenox, this was likely a reaction to his illness ? Iron studies show an elevated ferritin consistent with inflammation 04/22: BUN/creatinine 41/1.76. K3.5.Mild improvement in creatinine. 2. Acute anemia from upper GI bleed loss: Discussed with the general surgeon. Hemoglobin is 8.2. Platelet count normal. Patient had large-volume hematemesis and EGD was done which showed visible vessel with an ulcer in distal esophagus. No varices. Patient also had fever for which patient started on Unasyn. 3. Probability of aspiration/aspiration pneumonia and bilateral pleural effusion: Patient developed fever and leukocytosis. On Unasyn. Chest CTA shows pleural effusion bilateral with moderate pericardial effusion. Shows reactive adenopathy. 2D echo EF 55% no significant valvular abnormality with normal diastole and no pericardial effusion. 4. New onset A. fib, hypertension and dyslipidemia: ? EF on the echo was normal as mentioned above. ? He did convert to normal sinus rhythm with the addition of p.o. metoprolol to his Cardizem drip, continue with metoprolol 25 mg p.o. twice daily as well as Cardizem 240 mg daily ? Continue with Lipitor DVT: SCDs Clinical Impression(s) from Imaging Studies Chest CTA 04/18/22 01:30 IMPRESSION: 1. Bilateral pleural effusions with reactive adenopathy. 2. No PE. 3. Moderate-size pericardial effusion. Electronically Signed: Ankit Moyer MD at 3:33 EST , Renal Ultrasound 04/18/22 05:27 IMPRESSION: 1. Mild right hydronephrosis. 2. 5 cm exophytic cyst of the left kidney. Electronically Signed: Wale Woodruff MD at 12:29 EST , Echocardiogram 04/18/22 05:55 Interpretation Summary The estimated ejection fraction is 55 %. No significant valvular abnormalities Ordering Physician: Shaun Landry Performed By: Candelario Klien RCS X-Ray 04/20/22 20:50 IMPRESSION: 1. Bilateral pleural effusions. 2. There is a feeding tube/ nasogastric tube noted. The tip is in the region of the stomach. KUB X-Ray 04/20/22 23:38 IMPRESSION: 1. NG tube extends into the proximal stomach and appears to be turns upon itself in the proximal stomach. 2. Normal bowel gas pattern. 3. Bibasilar atelectasis greater on the RIGHT than LEFT and RIGHT effusion suspected. Electronically Signed: Wale Dunn MD at 0:43 EST , Charges/Coding Visit Charges Inpatient E&M: 34187 Subs Hosp L2
--- NOTE | 2022-04-22 15:57 | NURSING ---
[id number] Called patient's son to give update of patient condition. Son said he wouldn't be able to make it in today.
[2022-04-22] MEDS: Atorvastatin Calcium 20 MG Tablet PO (22:16)
[2022-04-22] MEDS: Menthol/Lanolin/Calamine/Znox 113 GM Tube 1 APPLIC TOPICAL (22:16)
[2022-04-22] MEDS: Ibuprofen 400 MG Tablet PO (23:35)
[2022-04-23] VITALS (21 sets, daily range): BP systolic 74–151; BP diastolic 46–81; PULSE 76–122; RESP 20–37; TEMP 36.4–37.6; O2SAT 90–100
[2022-04-23 05:03] LABS: Absolute Neutrophil Count 10.8 X10^3/uL (2.0-7.7); Basophil# 0.05 X10^3/uL; Basophil% 0.4 % (0-1); Eosinophil# 0.16 X10^3/uL; Eosinophils% 1.3 % (0-5); Hematocrit 26.5 % (40-54); Hemoglobin 8.1 g/dL (13.0-16.5); Lymphocyte % 5.7 % (19-41); Mean Corp Hgb Conc 30.6 g/dL (32-36); Mean Corpuscular Hgb 28.3 pg (27.0-32.0); Mean Corpuscular Volume 92.7 fL (80-94); Mean Platelet Vol. 9.6 fl (6.2-12.0); Monocyte# 0.27 X10^3/uL; Monocyte% 2.2 % (0-10); NRBC Flagged by Analyzer 0.3 % (0-5); Neutrophil # 10.81 X10^3/uL (2.7-7.7); Neutrophil % 88.8 % (47-70); Platelet Count 271 K/mm3 (150-450); RBC Distribution Width CV 14.9 % (11.6-14.6); RBC Distribution Width SD 50.5 fl (35.1-43.9); Red Blood Count 2.86 M/mm3 (4.6-6.2); White Blood Count 12.2 K/mm3 (4.4-11.0)
[2022-04-23] MEDS: Menthol/Lanolin/Calamine/Znox 113 GM Tube 1 APPLIC TOPICAL ×3 (05:10→21:19)
[2022-04-23 05:29] LABS: Anion Gap 10 (5-15); BUN 28 mg/dL (7-18); BUN/Creat Ratio 17.8 RATIO (10-20); Calcium,Total 7.1 mg/dL (8.5-10.1); Chloride 109 mmol/L (98-107); Creatinine, Serum 1.57 mg/dL (0.70-1.30); EST Glomerular Filtration Rate 46 mL/min (>60); Est Glom Filt Rate - Afr Amer 56 mL/min (>60); Estimated Creatinine Clearance 39.12 ml/min; Glucose 109 mg/dL (74-106); Potassium 2.9 mmol/L (3.5-5.1); Sodium Level 141 mmol/L (136-145)
[2022-04-23] MEDS: Ipratropium/Albuterol Sulfate 3 ML AMPUL.NEB INHALATION ×2 (06:59→20:08)
[2022-04-23] MEDS: Budesonide Respules 0.5 MG/2 ML AMPUL.NEB. INHALATION ×2 (06:59→20:08)
--- NOTE | 2022-04-23 08:51 | PN.SURG_ITS ---
Subjective Subjective Patient evaluated this morning during rounds resting comfortably in bed. He denies any abdominal pain this morning. He denies any vomiting. He is tolerating his current diet. Objective Data Objective Data Vital Signs: Vital Signs Temp Pulse Resp BP Pulse Ox O2 Del Method O2 Flow Rate 97.5 F L 85 30 H 89/54 L 96 Nasal Cannula 3 04/23/22 08:40 04/23/22 08:40 04/23/22 08:40 04/23/22 08:40 04/23/22 08:40 04/23/22 08:40 04/23/22 08:40 Oxygen Flow Rate (L/min) 3 Oxygen Delivery Method Nasal Cannula Weight: 150 lb Body Mass Index (BMI) 22.1 Intake & Output: Intake and Output for Last 24 Hours 04/21/22 04/22/22 04/23/22 23:59 23:59 23:59 Intake Total 4201.16 / 4201.16 3317.67 / 3317.67 661.67 / 661.67 Output Total 3100 / 3100 1600 / 2050 850 / 850 Balance 1101.16 / 1101.16 1717.67 / 1267.67 -188.33 / -188.33 Lab / Micro Data Result Diagrams: 04/23/22 04:47 04/23/22 04:47 Labs: Laboratory Results - last 24 hr 04/23/22 04:47: WBC 12.2 H, RBC 2.86 L, Hgb 8.1 L, Hct 26.5 L, MCV 92.7, MCH 28.3, MCHC 30.6 L, RDW Std Deviation 50.5 H, RDW Coeff of Yemi 14.9 H, Plt Count 271, MPV 9.6, Immature Gran % (Auto) 1.600 H, Neut % (Auto) 88.8 H, Lymph % (Auto) 5.7 L, [place] % (Auto) 2.2, Eos % (Auto) 1.3, Baso % (Auto) 0.4, Absolute Neuts (auto) 10.8 H, Absolute Lymphs (auto) 0.70 L, Nucleated RBC % 0.3 04/23/22 04:47: Sodium 141, Potassium 2.9 L, Chloride 109 H, Carbon Dioxide 22.0, Anion Gap 10, BUN 28 H, Creatinine 1.57 H, Estim Creat Clear Calc 39.12, Est GFR (MDRD) Af Amer 56 L, Est GFR (MDRD) Non-Af 46 L, BUN/Creatinine Ratio 17.8, Glucose 109 H, Calcium 7.1 L Micro: Microbiology 04/18/22 04:32 Blood Culture (Wb) - Anticubital Left Blood Culture - Final No growth in 5 days. 04/18/22 04:46 Blood Culture (Wb) - Left Hand Blood Culture - Final No growth in 5 days. 04/18/22 02:20 Urine, Clean Catch Urine Culture - Final Mixed Gram Positive Organisms 04/20/22 20:55 Stool Stool Occult Blood (XI) - Final Occult Blood Positive 04/20/22 15:35 Stool Stool Occult Blood (XI) - Final 04/18/22 22:55 Nasal Secretion SARS-CoV-2 Antigen (Rapid) - Final 04/18/22 01:10 Nasal Secretion SARS-CoV-2 & FLU Antigen (Rapid) - Final Physical Exam GI normal to inspection, nondistended, normoactive bowel sounds Assessment & Plan Assessment/Plan (1) Hematemesis of unknown cause: PLAN: Underwent diagnostic EGD 04/21/2022 with findings of no acute bleeding.? A visible vessel and associated esophageal ulcer is a probable bleeding cause.? Alongside this finding patient had evidence of a duodenal bulb ulcer, angiectasia of the gastric incisura, and long segment Negrete's esophagus.? No biopsies were undertaken given patient's acute status without knowledge of coagulation studies either.? PLAN: Plan - H&H remains stable - Okay to advance diet further - Continue Protonix 80 mg daily as an outpatient - Follow-up with Gastroenterology in 2 weeks for additional esophageal ulcers as well as probable Negrete's esophagus - Okay for discharge once medically cleared Charges/Coding Visit Charges Inpatient E&M: 45275 Subs Hosp L2
[2022-04-23] MEDS: dilTIAZem CD 240 MG Capsule PO (09:09)
[2022-04-23] MEDS: Ensure Clear 120 ML Liquid PO ×4 (09:12→21:19)
[2022-04-23] MEDS: 0.9% Normal Saline 1,000 ML 75 ML IV (10:49)
[2022-04-23] MEDS: Pantoprazole Sodium 40 MG Tablet PO ×2 (10:58→21:19)
[2022-04-23] MEDS: Potassium Chloride Oral Tablet 20 MEQ 40 MEQ PO ×3 (11:00→16:36)
--- NOTE | 2022-04-23 11:23 | CASEMGMT ---
ZINA sent updates to [place] via [employer]. Teagan Galo THERAPEUTIC DIETITIAN ARGENIS
--- NOTE | 2022-04-23 13:34 | CASEMGMT ---
ZINA called Rachael at [facility] and let her know patient will likely be discharged tomorrow. Teagan Galo LENS MARKER ARGENIS
--- NOTE | 2022-04-23 16:03 | PCM.PN.HOSP ---
Subjective Subjective Patient is short of breath. Having labored breathing. snf does not have BiPAP. Objective Data Objective Data Vital Signs: Vital Signs Temp Pulse Resp BP Pulse Ox O2 Del Method O2 Flow Rate 98.0 F 97 31 H 107/51 L 90 Nasal Cannula 3.5 04/23/22 14:02 04/23/22 14:02 04/23/22 15:20 04/23/22 14:02 04/23/22 14:45 04/23/22 15:20 04/23/22 15:20 Oxygen Flow Rate (L/min) 3.5 Oxygen Delivery Method Nasal Cannula Weight: 150 lb Body Mass Index (BMI) 22.1 Intake & Output: Intake and Output for Last 24 Hours 04/21/22 04/22/22 04/23/22 23:59 23:59 23:59 Intake Total 4201.16 / 4201.16 3317.67 / 3317.67 1751.67 / 1751.67 Output Total 3100 / 3100 1600 / 2050 1600 / 1600 Balance 1101.16 / 1101.16 1717.67 / 1267.67 151.67 / 151.67 Lab / Micro Data Result Diagrams: 04/23/22 04:47 04/23/22 04:47 Labs: Laboratory Results - last 24 hr 04/23/22 04:47: WBC 12.2 H, RBC 2.86 L, Hgb 8.1 L, Hct 26.5 L, MCV 92.7, MCH 28.3, MCHC 30.6 L, RDW Std Deviation 50.5 H, RDW Coeff of Yemi 14.9 H, Plt Count 271, MPV 9.6, Immature Gran % (Auto) 1.600 H, Neut % (Auto) 88.8 H, Lymph % (Auto) 5.7 L, [place] % (Auto) 2.2, Eos % (Auto) 1.3, Baso % (Auto) 0.4, Absolute Neuts (auto) 10.8 H, Absolute Lymphs (auto) 0.70 L, Nucleated RBC % 0.3 04/23/22 04:47: Sodium 141, Potassium 2.9 L, Chloride 109 H, Carbon Dioxide 22.0, Anion Gap 10, BUN 28 H, Creatinine 1.57 H, Estim Creat Clear Calc 39.12, Est GFR (MDRD) Af Amer 56 L, Est GFR (MDRD) Non-Af 46 L, BUN/Creatinine Ratio 17.8, Glucose 109 H, Calcium 7.1 L Micro: Microbiology 04/18/22 04:32 Blood Culture (Wb) - Anticubital Left Blood Culture - Final No growth in 5 days. 04/18/22 04:46 Blood Culture (Wb) - Left Hand Blood Culture - Final No growth in 5 days. 04/18/22 02:20 Urine, Clean Catch Urine Culture - Final Mixed Gram Positive Organisms 04/20/22 20:55 Stool Stool Occult Blood (XI) - Final Occult Blood Positive 04/20/22 15:35 Stool Stool Occult Blood (XI) - Final 04/18/22 22:55 Nasal Secretion SARS-CoV-2 Antigen (Rapid) - Final 04/18/22 01:10 Nasal Secretion SARS-CoV-2 & FLU Antigen (Rapid) - Final Physical Exam Narrative Patient has mild shortness of breath but he has been like that for the last 2 to 3 days. Patient has not used BiPAP for 3 days. I think patient might be short of breath from multiple etiologies from bilateral pleural effusion, failure to thrive with with anorexia and not able to eat before admission. Physical exam General: Alert, Oriented x3, Cooperative in moderate respiratory distress HEENT: Atraumatic, PERRLA, EOMI, Normocephalic Oral: No Gingival or Mucosal Lesions/ Ulcerations Neck: Supple, No JVD, Negative Carotid Bruits Lungs: Air entry diminished in bilateral lung bases. Mild shortness of breath at rest. No crepitations. On 3-1/2 L of oxygen. Cardiovascular: Regular rate, Regular Rhythm, Normal S1, Normal S2, No murmurs Abdomen: Bowel Sounds Present, Soft, Non Tender, Non-Distended : No renal angle tenderness. No suprapubic tenderness. Extremities: Mild bilateral ankle edema, Capillary Refill Less than 3 Seconds Skin: No rashes, No breakdown Musculoskeletal: No Tenderness to Palpation of Joints or Extremities, ROM restricted. Neurological: Cranial nerves II-XII grossly intact, DTR 2+/4 and Symmetrical, Neuro grossly intact Psych/Mental Status: Flat affect. Assessment & Plan Assessment/Plan (1) Hematemesis of unknown cause: PLAN: Plan 76-year-old gentleman with history of malignant lung nodule status postresection was admitted with 2-week history of progressively worsening shortness of breath on exertion, generalized weakness, unable to get up. In ED he was found to be in NAZANIN and other multiple issues. 1. NAZANIN exact etiology unclear possible prerenal ? Initially renal function worsened. ? He is intermittently febrile however blood cultures are negative, CT of the chest was negative for pneumonia. Urine culture is as mixed ember ? Continue with PPI appreciate general surgery consult, will repeat an H&H when he is back to the floor, completed 2 units of PRBCs ? Has been COVID tested twice which are negative. ? Unsure as to the pathology of his nodule but he did have a lung resection at [facility] in [place] on 08/30/2021. ? Continue with PT/OT for possible placement ? We will try to obtain a stool guaiac to evaluate for any blood loss, as he converted to normal sinus rhythm and his echo that demonstrated normal left atrium, will discontinue his therapeutic Lovenox, this was likely a reaction to his illness ? Iron studies show an elevated ferritin consistent with inflammation 04/22: BUN/creatinine 41/1.76. K3.5.Mild improvement in creatinine. 04/23: Further improvement in creatinine 1.57. 2. Acute anemia from upper GI bleed loss: Discussed with the general surgeon. Hemoglobin is 8.2. Platelet count normal. Patient had large-volume hematemesis and EGD was done which showed visible vessel with an ulcer in distal esophagus. No varices. Patient also had fever for which patient started on Unasyn and iron supplement.. 04/23: Hemoglobin improved to 8.1. Continue Protonix. 3. Probability of aspiration/aspiration pneumonia and bilateral pleural effusion: Patient developed fever and leukocytosis. On Unasyn. Chest CTA shows pleural effusion bilateral with moderate pericardial effusion. Shows reactive adenopathy. 2D echo EF 55% no significant valvular abnormality with normal diastole and no pericardial effusion. 04/23: Total 7 days of antibiotic. Prescription for Augmentin for 4 more day 4. New onset A. fib, hypertension and dyslipidemia: ? EF on the echo was normal as mentioned above. ? He did convert to normal sinus rhythm with the addition of p.o. metoprolol to his Cardizem drip, continue with metoprolol 25 mg p.o. twice daily as well as Cardizem 240 mg daily ? Continue with Lipitor 04/23: Because of low blood pressure Cardizem discontinued. Patient metoprolol increased to 50 mg twice daily. 5. Acute on chronic HFpEF with bilateral pleural effusion: Patient is also chronically short of breath with bilateral pleural effusion from acute on chronic HFpEF. Patient has not required BiPAP for 3 days. He will need to be put on diuretic as per tolerated by hemodynamics but currently his pressure is low. Lasix 20 mg IV ordered. DVT: SCDs Total time of the visit including total time spent in counseling or coordination of care, (more than 50% of the total time, spent in obtaining medical information from nurses and other ancillary care providers,explaining to the patient about labs, imaging, diagnosis and management of active complex medical conditions), complexity of medical problems., review of labs and imaging is 45 minutes. Hold discharge. Clinical Impression(s) from Imaging Studies Chest CTA 04/18/22 01:30 IMPRESSION: 1. Bilateral pleural effusions with reactive adenopathy. 2. No PE. 3. Moderate-size pericardial effusion. Electronically Signed: Ankit Moyer MD at 3:33 EST , Renal Ultrasound 04/18/22 05:27 IMPRESSION: 1. Mild right hydronephrosis. 2. 5 cm exophytic cyst of the left kidney. Electronically Signed: Wale Woodruff MD at 12:29 EST , Echocardiogram 04/18/22 05:55 Interpretation Summary The estimated ejection fraction is 55 %. No significant valvular abnormalities Ordering Physician: Shaun Landry Performed By: Brodwolf, Candelario, RCS X-Ray 04/20/22 20:50 IMPRESSION: 1. Bilateral pleural effusions. 2. There is a feeding tube/ nasogastric tube noted. The tip is in the region of the stomach. KUB X-Ray 04/20/22 23:38 IMPRESSION: 1. NG tube extends into the proximal stomach and appears to be turns upon itself in the proximal stomach. 2. Normal bowel gas pattern. 3. Bibasilar atelectasis greater on the RIGHT than LEFT and RIGHT effusion suspected. Electronically Signed: Wale Dunn MD at 0:43 EST , Charges/Coding Addendum Addendum: Please cancel the billing charge of discharge summary today Visit Charges Inpatient E&M: 21645 Subs Hosp L3
[2022-04-23] MEDS: 0.9% Saline Lock 10 ML Syringe IV (16:36)
[2022-04-23] MEDS: Furosemide 20 MG/2 ML VIAL IV (16:36)
[2022-04-23] MEDS: Acetaminophen 325 MG Tablet 650 MG PO (21:18)
[2022-04-23] MEDS: Metoprolol Tartrate 50 MG Tablet PO (21:18)
[2022-04-23] MEDS: Atorvastatin Calcium 20 MG Tablet PO (21:20)
[2022-04-24] VITALS (36 sets, daily range): BP systolic 82–133; BP diastolic 42–81; PULSE 83–174; RESP 18–38; TEMP 36.6–38.4; O2SAT 92–100
--- NOTE | 2022-04-24 | FLU_PTH ---
PATIENT: EUGENIA DONOHUE LOC: [facility] U#:[id number] AGE/SX: 76/M ROOM: [facility] RE04/18/[address]: Dr. Prakash Nolan DO : 1945 BED: 1 DIS: 04/29/2022 SPEC #: [id number] RECD: 04/24/22 15:05 STATUS: KUSH REQ #: [id number] LOW: 04/24/22 00:[address]: Clemente Acosta DEPT: CYTOLOGY RECD BY: Salima Chatman ENTERED: 04/25/22 09:55 SP TYPE: Fluid OTHR DR: MD Dr. Jordan Sheridan DO Dr. Joseph Agyepong, MD Dr. Lee Ann Baggott, MD Dr. Nicholas F Kotsonis, MD Dr. Robert Leininger, MD Dr. Tanmay Panchabhai, MD Christina Muller, [employer] INSTALLER-C Tissues: Pleural fluid, NOS Procedures: Special Stain Group II Surgery Specimen Level IV Cytospin Fluid HEADER OPERATION: Ultrasound-guided thoracentesis PRE-OP DIAGNOSIS: Right pleural effusion TISSUE SUBMITTED: Thoracentesis fluid for cytology DIAGNOSIS CYTOLOGY Thoracentesis fluid for cytology (cytospin and cell block): Negative for malignant cells. See comment. ROB:brittany 04/26/2022 COMMENT Correlation with clinical, radiologic findings and appropriate follow up are necessary. CYTOLOGY STUDY Slides are reviewed. CYTOLOGY GROSS Received is 80 ml of yellow cloudy fluid labeled with the patient's name and and designated per the requisition as thoracentesis. Submitted for cytology preparation including cell block. / brittany 04/25/2022 TC:5 CPT: 03640, 99656
[2022-04-24] MEDS: 0.9% Normal Saline 1,000 ML 75 ML IV ×2 (01:40→18:18)
[2022-04-24] MEDS: Menthol/Lanolin/Calamine/Znox 113 GM Tube 1 APPLIC TOPICAL ×3 (05:27→21:09)
[2022-04-24] MEDS: Ensure Clear 120 ML Liquid PO ×4 (05:38→21:08)
[2022-04-24] MEDS: Metoprolol Tartrate 50 MG Tablet PO ×2 (06:23→21:09)
[2022-04-24] MEDS: Metoprolol Tartrate 5 MG/5 ML Vial 2.5 MG IV (06:29)
[2022-04-24] MEDS: 0.9% Saline Lock 10 ML Syringe IV ×4 (06:37→18:13)
[2022-04-24 06:40] LABS: Absolute Neutrophil Count 10.4 X10^3/uL (2.0-7.7); Basophil# 0.09 X10^3/uL; Basophil% 0.8 % (0-1); Eosinophil# 0.36 X10^3/uL; Hematocrit 28.5 % (40-54); Hemoglobin 8.7 g/dL (13.0-16.5); Mean Corp Hgb Conc 30.5 g/dL (32-36); Mean Corpuscular Hgb 28.3 pg (27.0-32.0); Mean Corpuscular Volume 92.8 fL (80-94); Monocyte# 0.29 X10^3/uL; Monocyte% 2.4 % (0-10); NRBC Flagged by Analyzer 0 % (0-5); Neutrophil # 10.43 X10^3/uL (2.7-7.7); Neutrophil % 87.7 % (47-70); POSITIVE DIFFERENTIAL YES; Platelet Count 232 K/mm3 (150-450); RBC Distribution Width CV 15.1 % (11.6-14.6); RBC Distribution Width SD 51.9 fl (35.1-43.9); Red Blood Count 3.07 M/mm3 (4.6-6.2); White Blood Count 11.9 K/mm3 (4.4-11.0)
[2022-04-24 07:05] LABS: Differential Indicated SCAN CRITERIA MET
[2022-04-24 07:09] LABS: Anion Gap 7 (5-15); BUN 21 mg/dL (7-18); BUN/Creat Ratio 15.1 RATIO (10-20); Calcium,Total 7.4 mg/dL (8.5-10.1); Chloride 107 mmol/L (98-107); Creatinine, Serum 1.39 mg/dL (0.70-1.30); EST Glomerular Filtration Rate 53 mL/min (>60); Est Glom Filt Rate - Afr Amer 64 mL/min (>60); Estimated Creatinine Clearance 44.19 ml/min; Glucose 105 mg/dL (74-106); Potassium 3.8 mmol/L (3.5-5.1); Sodium Level 140 mmol/L (136-145)
[2022-04-24] MEDS: Ipratropium/Albuterol Sulfate 3 ML AMPUL.NEB INHALATION ×2 (07:12→12:55)
[2022-04-24] MEDS: Budesonide Respules 0.5 MG/2 ML AMPUL.NEB. INHALATION (07:12)
[2022-04-24 07:40] LABS: Hypochromasia 1+
--- NOTE | 2022-04-24 08:13 | CPS ---
Pt placed on aerosol rx. Pt pulled masked off and was encouraged to keep on. Mask placed back on pt and pt removed mask again befoe rx was to end. Rx was terminated early.
[2022-04-24] MEDS: Pantoprazole Sodium 40 MG Tablet PO ×2 (08:22→21:09)
--- NOTE | 2022-04-24 11:05 | PHA.DC.MR ---
Pharmacy Service has performed discharge medication reconciliation for this patient. The patient's discharge medication list was reviewed for discrepancies and discrepancies were resolved. Home Medications albuterol sulfate 90 mcg/actuation aerosol inhaler 1 - 2 puff inhalation Q4H PRN SOB 04/18/22 atorvastatin 20 mg tablet 20 mg PO QHS 04/18/22 fluticasone fur. 100 mcg-umeclid 62.5 mcg-vilant 25 mcg inhalat.powder (Trelegy Ellipta) 1 inh inhalation DAILY 04/18/22 amlodipine 5 mg-benazepril 10 mg capsule 1 cap PO DAILY #30 caps 04/23/22 amoxicillin 500 mg-potassium clavulanate 125 mg tablet (Augmentin) 1 tab PO BID #8 tabs 04/23/22 furosemide 20 mg tablet 20 mg PO DAILY #30 tabs 04/23/22 ipratropium 0.5 mg-albuterol 3 mg (2.5 mg base)/3 mL nebulization soln 3 ml inhalation Q6HWA.RT #0 mL 04/23/22 metoprolol tartrate 50 mg tablet 50 mg PO BID #0 tabs 04/23/22 pantoprazole 40 mg tablet,delayed release 40 mg PO BID #0 tabs 04/23/22 potassium chloride 20 mEq tablet,extended release(part/cryst) (Klor-Con M) 40 meq PO DAILY #0 tabs 04/23/22 sennosides 8.6 mg-docusate sodium 50 mg tablet (Stool Softener-Stimulant Laxative) 2 tab PO BID PRN PRN Constipation #0 tabs 04/23/22
--- NOTE | 2022-04-24 11:13 | PCM.TXEXTCAR ---
Diet Diet Order/Speech Therapy: 04/21/22 10:56 Diet: Clear Liquid Is pt able to select menu?: Yes Routine Orders/Code Status Suppository Type: Dulcolax 10mg Suppository Frequency: Daily PRN Therapies Physical Therapy: Eval and Treat Occupational Therapy: Eval and Treat Speech Therapy: Eval and Treat Problem/Diagnosis (1) Hematemesis of unknown cause: Status: Acute Code(s): K92.0 - Hematemesis Plan 1. NAZANIN exact etiology unclear possible prerenal ? Initially renal function worsened. ? He is intermittently febrile however blood cultures are negative, CT of the chest was negative for pneumonia. Urine culture is as mixed ember ? Continue with PPI appreciate general surgery consult, will repeat an H&H when he is back to the floor, completed 2 units of PRBCs ? Has been COVID tested twice which are negative. ? Unsure as to the pathology of his nodule but he did have a lung resection at [facility] in [place] on 08/30/2021. ? Continue with PT/OT for possible placement ? We will try to obtain a stool guaiac to evaluate for any blood loss, as he converted to normal sinus rhythm and his echo that demonstrated normal left atrium, will discontinue his therapeutic Lovenox, this was likely a reaction to his illness ? Iron studies show an elevated ferritin consistent with inflammation 04/22: BUN/creatinine 41/1.76. K3.5.Mild improvement in creatinine. 2. Acute anemia from upper GI bleed loss: Discussed with the general surgeon. Hemoglobin is 8.2. Platelet count normal. Patient had large-volume hematemesis and EGD was done which showed visible vessel with an ulcer in distal esophagus. No varices. Patient also had fever for which patient started on Unasyn. 3. Probability of aspiration/aspiration pneumonia and bilateral pleural effusion: Patient developed fever and leukocytosis. On Unasyn. Chest CTA shows pleural effusion bilateral with moderate pericardial effusion. Shows reactive adenopathy. 2D echo EF 55% no significant valvular abnormality with normal diastole and no pericardial effusion. 4. New onset A. fib, hypertension and dyslipidemia: ? EF on the echo was normal as mentioned above. ? He did convert to normal sinus rhythm with the addition of p.o. metoprolol to his Cardizem drip, continue with metoprolol 25 mg p.o. twice daily as well as Cardizem 240 mg daily ? Continue with Lipitor DVT: SCDs Clinical Impression(s) from Imaging Studies Chest CTA 04/18/22 01:30 IMPRESSION: 1. Bilateral pleural effusions with reactive adenopathy. 2. No PE. 3. Moderate-size pericardial effusion. Electronically Signed: Ankit Moyer MD at 3:33 EST , Renal Ultrasound 04/18/22 05:27 IMPRESSION: 1. Mild right hydronephrosis. 2. 5 cm exophytic cyst of the left kidney. Electronically Signed: Wale Woodruff MD at 12:29 EST , Echocardiogram 04/18/22 05:55 Interpretation Summary The estimated ejection fraction is 55 %. No significant valvular abnormalities Ordering Physician: Shaun Landry Performed By: Candelario Klein RCS X-Ray 04/20/22 20:50 IMPRESSION: 1. Bilateral pleural effusions. 2. There is a feeding tube/ nasogastric tube noted. The tip is in the region of the stomach. KUB X-Ray 04/20/22 23:38 IMPRESSION: 1. NG tube extends into the proximal stomach and appears to be turns upon itself in the proximal stomach. 2. Normal bowel gas pattern. 3. Bibasilar atelectasis greater on the RIGHT than LEFT and RIGHT effusion suspected. Electronically Signed: Wale Dunn MD at 0:43 EST , Allergies/Procedures Done in Hospital Allergies No Known Allergies Allergy (Verified 04/17/22 22:46) Type of Care/Length of Stay Estimated LOS: Convalescent Care Less Than 30 days Type of Care Needed: Skilled Rehab Potential: Good Prognosis: Good Additional Orders/Day of Discharge Day of Discharge: 04/23/22 Dietary and Speech Recommendations Dietitian Recommendations/Changes: ADAT to Regular diet when medically able to optimize oral intakes. Continue Ensure Clear with medpass to provide supplemental energy. Recommend 118mL Ensure Compact TID when diet advances >Clear Liquid. Discharge Plan Admission Admit Date/Time: 04/18/22 04:14 Primary Reason for Your Visit: NAZANIN, acute anemia, new onset A. fib. Respiration. Attending Provider: Clemente Acosta Primary Care Provider: ANIYAH HOLLY Consulting Providers: Shaun Landry ; Nazario Madera Instructions Additional Instructions / Restrictions: Patient will need BiPAP as needed or at night. Discharge Orders/Prescriptions Prescriptions: New ipratropium-albuterol 0.5 mg-3 mg(2.5 mg base)/3 mL Solution For Nebulization 3 ml inhalation Q6HWA.RT Qty: 0 0RF sennosides-docusate sodium [Stool Softener-Stimulant Laxat] 8.6-50 mg Tablet 2 tab PO BID PRN PRN (Reason: Constipation) Qty: 0 0RF potassium chloride [Klor-Con M20] 20 mEq Tablet,Er Particles/Crystals 40 meq PO DAILY Qty: 0 0RF Rx Instructions: For 7 days and then check BMP pantoprazole 40 mg Tablet,Delayed Release (Dr/Ec) 40 mg PO BID Qty: 0 0RF Rx Instructions: 40 mg p.o. twice daily for 2 months and then once daily metoprolol tartrate 50 mg Tablet 50 mg PO BID Qty: 0 0RF Rx Instructions: Hold for heart less than 60 or systolic blood pressure less than 100 mmHg. amoxicillin-pot clavulanate [Augmentin] 500-125 mg tablet 1 tab PO BID Qty: 8 0RF Continued albuterol sulfate 90 mcg/actuation HFA aerosol inhaler 1 - 2 puff INHALATION Q4H PRN (Reason: SOB) Label Comments: INHALE 2 PUFFS INTO THE LUNGS EVERY 6 HOURS NEEDED FOR WHEEZING AND/OR SHORTN atorvastatin 20 mg tablet 20 mg PO QHS Label Comments: TAKE 1 TABLET BY MOUTH EVERY DAY Trelegy Ellipta 100-62.5-25 mcg blister with device 1 inh INHALATION DAILY Label Comments: TAKE 1 PUFF BY MOUTH EVERY DAY amlodipine-benazepril 5-10 mg capsule 1 cap PO DAILY Qty: 30 0RF Label Comments: TAKE 1 CAPSULE BY MOUTH EVERY DAY Rx Instructions: Hold for SBP less than 130 mmHg Referrals / Follow Up: ANIYAH HOLLY [Other] ANIYAH HOLLY [Other] Jordan Reynoso DO [Med Staff - Active Staff] - Within 2 Weeks (for SOB, NEED PFT and sleep study. copd?) James Corcoran DO [Med Staff - Active Staff] - Within 1 Month (For long segment of Negrete's esophagus. Z-line irregular. Nonbleeding esophageal ulcer.) Higinio Rogers MD [Med Staff - Active Staff] - Within 1 Month (for Afib) Disposition Disposition (needs filled in before D/C Order can be placed): [facility]
--- NOTE | 2022-04-24 11:17 | DS.PCM_ITS ---
Providers Date of Admission: 04/18/22 Date of Discharge: 04/23/22 Primary Care Physician: ANIYAH HOLLY Reason For Visit: NAZANIN, PERICARDIAL EFFUSION Diagnosis Discharge Diagnosis (1) Hematemesis of unknown cause: Status: Acute Code(s): K92.0 - Hematemesis Plan 76-year-old gentleman with history of malignant lung nodule status postresection was admitted with 2-week history of progressively worsening shortness of breath on exertion, generalized weakness, unable to get up. In ED he was found to be in NAZANIN and other multiple issues. 1. NAZANIN exact etiology unclear possible prerenal ? Initially renal function worsened. ? He is intermittently febrile however blood cultures are negative, CT of the chest was negative for pneumonia. Urine culture is as mixed ember ? Continue with PPI appreciate general surgery consult, will repeat an H&H when he is back to the floor, completed 2 units of PRBCs ? Has been COVID tested twice which are negative. ? Unsure as to the pathology of his nodule but he did have a lung resection at [facility] in [place] on 08/30/2021. ? Continue with PT/OT for possible placement ? We will try to obtain a stool guaiac to evaluate for any blood loss, as he converted to normal sinus rhythm and his echo that demonstrated normal left atrium, will discontinue his therapeutic Lovenox, this was likely a reaction to his illness ? Iron studies show an elevated ferritin consistent with inflammation 04/22: BUN/creatinine 41/1.76. K3.5.Mild improvement in creatinine. 04/23: Further improvement in creatinine 1.57. 2. Acute anemia from upper GI bleed loss: Discussed with the general surgeon. Hemoglobin is 8.2. Platelet count normal. Patient had large-volume hematemesis and EGD was done which showed visible vessel with an ulcer in distal esophagus. No varices. Patient also had fever for which patient started on Unasyn and iron supplement.. 04/23: Hemoglobin improved to 8.1. Continue Protonix. 3. Probability of aspiration/aspiration pneumonia and bilateral pleural effusion: Patient developed fever and leukocytosis. On Unasyn. Chest CTA shows pleural effusion bilateral with moderate pericardial effusion. Shows reactive adenopathy. 2D echo EF 55% no significant valvular abnormality with normal diastole and no pericardial effusion. 04/23: Total 7 days of antibiotic. Prescription for Augmentin for 4 more day 4. New onset A. fib, hypertension and dyslipidemia: ? EF on the echo was normal as mentioned above. ? He did convert to normal sinus rhythm with the addition of p.o. metoprolol to his Cardizem drip, continue with metoprolol 25 mg p.o. twice daily as well as Cardizem 240 mg daily ? Continue with Lipitor 5. Acute on chronic HFpEF with bilateral pleural effusion: Patient is also chronically short of breath with bilateral pleural effusion from acute on chronic HFpEF. Patient has not required BiPAP for 3 days. He will need to be put on diuretic as per tolerated by hemodynamics but currently his pressure is low. Prescription given for Lasix 20 mg daily with holding parameters. DVT: SCDs Discharge medication reconciliation done. Discharge follow-up instructions completed. Discharge process discussed with the patient and all questions were answered to patient's satisfaction. Patient needs to follow-up with display coordinator, underwater hunter trapper, GI admission his discharge instruction. Patient is high risk for readmission. Total time spent, exact 35 minutes on discharge meds reconciliation, examination, coordination of care with nurses and ancillary staff, review of imaging and blood test and discussion with the patient on follow-up instructions. Clinical Impression(s) from Imaging Studies Chest CTA 04/18/22 01:30 IMPRESSION: 1. Bilateral pleural effusions with reactive adenopathy. 2. No PE. 3. Moderate-size pericardial effusion. Electronically Signed: Ankit Moyer MD at 3:33 EST , Renal Ultrasound 04/18/22 05:27 IMPRESSION: 1. Mild right hydronephrosis. 2. 5 cm exophytic cyst of the left kidney. Electronically Signed: Wale Woodruff MD at 12:29 EST , Echocardiogram 04/18/22 05:55 Interpretation Summary The estimated ejection fraction is 55 %. No significant valvular abnormalities Ordering Physician: Shaun Landry Performed By: Candelario Klein RCS X-Ray 04/20/22 20:50 IMPRESSION: 1. Bilateral pleural effusions. 2. There is a feeding tube/ nasogastric tube noted. The tip is in the region of the stomach. KUB X-Ray 04/20/22 23:38 IMPRESSION: 1. NG tube extends into the proximal stomach and appears to be turns upon itself in the proximal stomach. 2. Normal bowel gas pattern. 3. Bibasilar atelectasis greater on the RIGHT than LEFT and RIGHT effusion suspected. Electronically Signed: Wale Dunn MD at 0:43 EST , Medications at Discharge Home Medications albuterol sulfate 90 mcg/actuation aerosol inhaler 1 - 2 puff inhalation Q4H PRN SOB 04/18/22 atorvastatin 20 mg tablet 20 mg PO QHS 04/18/22 fluticasone fur. 100 mcg-umeclid 62.5 mcg-vilant 25 mcg inhalat.powder (Trelegy Ellipta) 1 inh inhalation DAILY 04/18/22 amlodipine 5 mg-benazepril 10 mg capsule 1 cap PO DAILY #30 caps 04/23/22 amoxicillin 500 mg-potassium clavulanate 125 mg tablet (Augmentin) 1 tab PO BID #8 tabs 04/23/22 furosemide 20 mg tablet 20 mg PO DAILY #30 tabs 04/23/22 ipratropium 0.5 mg-albuterol 3 mg (2.5 mg base)/3 mL nebulization soln 3 ml inhalation Q6HWA.RT #0 mL 04/23/22 metoprolol tartrate 50 mg tablet 50 mg PO BID #0 tabs 04/23/22 pantoprazole 40 mg tablet,delayed release 40 mg PO BID #0 tabs 04/23/22 potassium chloride 20 mEq tablet,extended release(part/cryst) (Klor-Con M) 40 meq PO DAILY #0 tabs 04/23/22 sennosides 8.6 mg-docusate sodium 50 mg tablet (Stool Softener-Stimulant Laxative) 2 tab PO BID PRN PRN Constipation #0 tabs 04/23/22 Physical Exam Narrative Patient has mild shortness of breath but he has been like that for the last 2 to 3 days. Patient has not used BiPAP for 3 days. I think patient might be short of breath from multiple etiologies from bilateral pleural effusion, failure to thrive with with anorexia and not able to eat before admission. Physical exam General: Alert, Oriented x3, Cooperative in moderate respiratory distress HEENT: Atraumatic, PERRLA, EOMI, Normocephalic Oral: No Gingival or Mucosal Lesions/ Ulcerations Neck: Supple, No JVD, Negative Carotid Bruits Lungs: Air entry diminished in bilateral lung bases. Mild shortness of breath at rest. No crepitations. On 3-1/2 L of oxygen. Cardiovascular: Regular rate, Regular Rhythm, Normal S1, Normal S2, No murmurs Abdomen: Bowel Sounds Present, Soft, Non Tender, Non-Distended : No renal angle tenderness. No suprapubic tenderness. Extremities: Mild bilateral ankle edema, Capillary Refill Less than 3 Seconds Skin: No rashes, No breakdown Musculoskeletal: No Tenderness to Palpation of Joints or Extremities, ROM restricted. Neurological: Cranial nerves II-XII grossly intact, DTR 2+/4 and Symmetrical, Neuro grossly intact Psych/Mental Status: Flat affect. Weight / BMI Weight Weight: 150 lb Body Mass Index (BMI) 22.1 ABG / Lab / Microbiology Data Result Diagrams: 04/23/22 04:47 04/23/22 04:47 Laboratory: Laboratory Results - last 24 hr 04/23/22 04:47: WBC 12.2 H, RBC 2.86 L, Hgb 8.1 L, Hct 26.5 L, MCV 92.7, MCH 28.3, MCHC 30.6 L, RDW Std Deviation 50.5 H, RDW Coeff of Yemi 14.9 H, Plt Count 271, MPV 9.6, Immature Gran % (Auto) 1.600 H, Neut % (Auto) 88.8 H, Lymph % (Auto) 5.7 L, [place] % (Auto) 2.2, Eos % (Auto) 1.3, Baso % (Auto) 0.4, Absolute Neuts (auto) 10.8 H, Absolute Lymphs (auto) 0.70 L, Nucleated RBC % 0.3 04/23/22 04:47: Sodium 141, Potassium 2.9 L, Chloride 109 H, Carbon Dioxide 22.0, Anion Gap 10, BUN 28 H, Creatinine 1.57 H, Estim Creat Clear Calc 39.12, Est GFR (MDRD) Af Amer 56 L, Est GFR (MDRD) Non-Af 46 L, BUN/Creatinine Ratio 17.8, Glucose 109 H, Calcium 7.1 L Microbiology: Microbiology 04/18/22 04:32 Blood Culture (Wb) - Anticubital Left Blood Culture - Final No growth in 5 days. 04/18/22 04:46 Blood Culture (Wb) - Left Hand Blood Culture - Final No growth in 5 days. 04/18/22 02:20 Urine, Clean Catch Urine Culture - Final Mixed Gram Positive Organisms 04/20/22 20:55 Stool Stool Occult Blood (XI) - Final Occult Blood Positive 04/20/22 15:35 Stool Stool Occult Blood (XI) - Final 04/18/22 22:55 Nasal Secretion SARS-CoV-2 Antigen (Rapid) - Final 04/18/22 01:10 Nasal Secretion SARS-CoV-2 & FLU Antigen (Rapid) - Final Meaningful Use Info Meaningful Use Diagnoses (Choose all that apply): None applicable Discharge Plan Admission Admit Date/Time: 04/18/22 04:14 Primary Reason for Your Visit: NAZANIN, acute anemia, new onset A. fib. Respiration. Attending Provider: Clemente Acosta Primary Care Provider: ANIYAH HOLLY Consulting Providers: Shaun Landry ; Nazario Madera Instructions Additional Instructions / Restrictions: Patient will need BiPAP as needed or at night. Discharge Orders/Prescriptions Prescriptions: New ipratropium-albuterol 0.5 mg-3 mg(2.5 mg base)/3 mL Solution For Nebulization 3 ml inhalation Q6HWA.RT Qty: 0 0RF sennosides-docusate sodium [Stool Softener-Stimulant Laxat] 8.6-50 mg Tablet 2 tab PO BID PRN PRN (Reason: Constipation) Qty: 0 0RF potassium chloride [Klor-Con M20] 20 mEq Tablet,Er Particles/Crystals 40 meq PO DAILY Qty: 0 0RF Rx Instructions: For 7 days and then check BMP pantoprazole 40 mg Tablet,Delayed Release (Dr/Ec) 40 mg PO BID Qty: 0 0RF Rx Instructions: 40 mg p.o. twice daily for 2 months and then once daily metoprolol tartrate 50 mg Tablet 50 mg PO BID Qty: 0 0RF Rx Instructions: Hold for heart less than 60 or systolic blood pressure less than 100 mmHg. amoxicillin-pot clavulanate [Augmentin] 500-125 mg tablet 1 tab PO BID Qty: 8 0RF furosemide 20 mg tablet 20 mg PO DAILY Qty: 30 0RF Rx Instructions: Hold if SBP < 100 mmHg Continued albuterol sulfate 90 mcg/actuation HFA aerosol inhaler 1 - 2 puff INHALATION Q4H PRN (Reason: SOB) Label Comments: INHALE 2 PUFFS INTO THE LUNGS EVERY 6 HOURS NEEDED FOR WHEEZING AND/OR SHORTN atorvastatin 20 mg tablet 20 mg PO QHS Label Comments: TAKE 1 TABLET BY MOUTH EVERY DAY Trelegy Ellipta 100-62.5-25 mcg blister with device 1 inh INHALATION DAILY Label Comments: TAKE 1 PUFF BY MOUTH EVERY DAY amlodipine-benazepril 5-10 mg capsule 1 cap PO DAILY Qty: 30 0RF Label Comments: TAKE 1 CAPSULE BY MOUTH EVERY DAY Rx Instructions: Hold for SBP less than 130 mmHg Referrals / Follow Up: ANIYAH HOLLY [Other] ANIYAH HOLLY [Other] Jordan Reynoso DO [Med Staff - Active Staff] - Within 2 Weeks (for SOB, NEED PFT and sleep study. copd?) Higinio Rogers MD [Med Staff - Active Staff] - Within 1 Month (for Afib) James Corcoran DO [Med Staff - Active Staff] - Within 1 Month (For long segment of Negrete's esophagus. Z-line irregular. Nonbleeding esophageal ulcer.) Disposition Disposition (needs filled in before D/C Order can be placed): [facility] Charges/Coding Visit Charges Inpatient E&M: 69616 Disch Hosp >30min
--- NOTE | 2022-04-24 11:21 | US_ITS ---
PROCEDURE: ULTRASOUND GUIDED THORACENTESIS. DATE: 04/24/2022. INDICATION: Male, 76 years old. Right pleural effusion PHYSICIAN: Juan Linton M.D. PROCEDURE: The risks, benefits, and alternatives to the procedure were explained to the patient. The specific risks of bleeding, infection, and pneumothorax requiring chest tube insertion were discussed and accepted. Written informed consent was obtained. Ultrasonographic evaluation of the right lower pleural space was carried out. An adequate pocket was identified. The patient was placed in the sitting, upright position. The overlying skin was prepped and draped in sterile fashion. 1% lidocaine was administered subcutaneously for local anesthesia. Under ultrasound guidance, a 5 Swazi thoracentesis needle/catheter system was advanced into the right posterior lower pleural fluid collection. Approximately 400 mL of mary-colored fluid was drained. The catheter was removed, and a sterile dressing was applied. A specimen was collected and sent to the laboratory for analysis, as requested by the referring clinician. The patient tolerated the procedure well. A chest x-ray was ordered. US/Thoracentesis W US IMPRESSION: Ultrasound-guided right thoracentesis. Electronically Signed: Juan Linton MD at 15:25 EST ,
--- NOTE | 2022-04-24 11:22 | RAD_ITS ---
STUDY: X-RAY CHEST REASON FOR EXAM: Male, 76 years old. SOB TECHNIQUE: Single AP portable view of the chest. COMPARISON: None. FINDINGS: EKG electrodes are seen. Thoracic congestion and CHF. Atelectasis and/or infiltrates at the lung bases worse on the left side with the blunting of both costophrenic angles. There is mild cardiac enlargement. Normal mediastinum and gerry. Normal visualized pulmonary arteries. Normal visualized aortic arch and descending thoracic aorta. There are diffuse degenerative changes of the visualized thoracic spine. Normal visualized ribs, clavicles, and shoulders. There is no demonstrated abnormality of the visualized soft tissue structures of the upper abdomen. RAD/Chest 1 View (Portable) IMPRESSION: Findings suggestive of a CHF with superimposed bibasilar atelectasis and small pleural effusions more prominent on the left side. Electronically Signed: Juan Linton MD at 12:41 EST ,
--- NOTE | 2022-04-24 11:37 | CASEMGMT ---
Patient is not ready for discharge today. SW called Rachael at [facility] and let her know this information. Plan: d/c to [facility] when medically ready. Teagan MORE
[2022-04-24] MEDS: Acetaminophen 325 MG Tablet 650 MG PO (12:06)
--- NOTE | 2022-04-24 12:20 | PN.HOSP_ITS ---
Subjective Subjective Follow-up for shortness of breath, fatigue, tachypnea and fever Objective Data Objective Data Vital Signs: Vital Signs Temp Pulse Resp BP Pulse Ox O2 Del Method O2 Flow Rate 101.2 F H 108 H 32 H 104/56 L 96 Nasal Cannula 4 04/24/22 12:00 04/24/22 12:00 04/24/22 12:00 04/24/22 12:00 04/24/22 12:00 04/24/22 12:00 04/24/22 12:00 FiO2 4 04/24/22 07:12 Oxygen Flow Rate (L/min) 4 Oxygen Delivery Method Nasal Cannula Weight: 150 lb Body Mass Index (BMI) 22.1 Intake & Output: Intake and Output for Last 24 Hours 04/22/22 04/23/22 04/24/22 23:59 23:59 23:59 Intake Total 3317.67 / 3317.67 2693.17 / 2693.17 370.75 / 370.75 Output Total 1600 / 2050 2225 / 3575 1750 / 1750 Balance 1717.67 / 1267.67 468.17 / -881.83 -1379.25 / -1379.25 Lab / Micro Data Result Diagrams: 04/24/22 06:00 04/24/22 06:00 Labs: Laboratory Results - last 24 hr 04/24/22 06:00: WBC 11.9 H, RBC 3.07 L, Hgb 8.7 L, Hct 28.5 L, MCV 92.8, MCH 28.3, MCHC 30.5 L, RDW Std Deviation 51.9 H, RDW Coeff of Yemi 15.1 H, Plt Count 232, MPV 10.0, Immature Gran % (Auto) 1.100 H, Neut % (Auto) 87.7 H, Lymph % (Auto) 5.0 L, [place] % (Auto) 2.4, Eos % (Auto) 3.0, Baso % (Auto) 0.8, Absolute Neuts (auto) 10.4 H, Absolute Lymphs (auto) 0.60 L, Nucleated RBC % 0, Hypochromasia 1+ 04/24/22 06:00: Sodium 140, Potassium 3.8, Chloride 107, Carbon Dioxide 26.0, Anion Gap 7, BUN 21 H, Creatinine 1.39 H, Estim Creat Clear Calc 44.19, Est GFR (MDRD) Af Amer 64, Est GFR (MDRD) Non-Af 53 L, BUN/Creatinine Ratio 15.1, Glucose 105, Calcium 7.4 L Micro: Microbiology 04/18/22 04:32 Blood Culture (Wb) - Anticubital Left Blood Culture - Final No growth in 5 days. 04/18/22 04:46 Blood Culture (Wb) - Left Hand Blood Culture - Final No growth in 5 days. 04/18/22 02:20 Urine, Clean Catch Urine Culture - Final Mixed Gram Positive Organisms 04/20/22 20:55 Stool Stool Occult Blood (XI) - Final Occult Blood Positive 04/20/22 15:35 Stool Stool Occult Blood (XI) - Final 04/18/22 22:55 Nasal Secretion SARS-CoV-2 Antigen (Rapid) - Final 04/18/22 01:10 Nasal Secretion SARS-CoV-2 & FLU Antigen (Rapid) - Final Physical Exam Narrative Patient has shortness of breath not improving. ABG was done. Patient also has fever. I think patient might be short of breath from multiple etiologies from bilateral pleural effusion, failure to thrive with with anorexia and not able to eat before admission. Physical exam General: Alert, Oriented x3, Cooperative in moderate respiratory distress HEENT: Atraumatic, PERRLA, EOMI, Normocephalic Oral: Oral mucosa dry. No Gingival or Mucosal Lesions/ Ulcerations Neck: Supple, No JVD, Negative Carotid Bruits Lungs: Air entry diminished in bilateral lung bases, right moderate effusion mild shortness of breath at rest. No crepitations. Cardiovascular: Regular rate, Regular Rhythm, Normal S1, Normal S2, No murmurs Abdomen: Bowel Sounds Present, Soft, Non Tender, Non-Distended : No renal angle tenderness. No suprapubic tenderness. Extremities: Mild bilateral ankle edema, Capillary Refill Less than 3 Seconds Skin: No rashes, No breakdown Musculoskeletal: No Tenderness to Palpation of Joints or Extremities, ROM restricted. Neurological: Cranial nerves II-XII grossly intact, DTR 2+/4 and Symmetrical, Neuro grossly intact Psych/Mental Status: Flat affect. Assessment & Plan Assessment/Plan (1) Hematemesis of unknown cause: PLAN: Plan 76-year-old gentleman with history of malignant lung nodule status postresection was admitted with 2-week history of progressively worsening shortness of breath on exertion, generalized weakness, unable to get up. In ED he was found to be in NAZANIN and other multiple issues. 1. NAZANIN exact etiology unclear possible prerenal ? Initially renal function worsened. ? He is intermittently febrile however blood cultures are negative, CT of the chest was negative for pneumonia. Urine culture is as mixed ember ? Continue with PPI appreciate general surgery consult, will repeat an H&H when he is back to the floor, completed 2 units of PRBCs ? Has been COVID tested twice which are negative. ? Unsure as to the pathology of his nodule but he did have a lung resection at [facility] in [place] on 08/30/2021. ? Continue with PT/OT for possible placement ? We will try to obtain a stool guaiac to evaluate for any blood loss, as he converted to normal sinus rhythm and his echo that demonstrated normal left atrium, will discontinue his therapeutic Lovenox, this was likely a reaction to his illness ? Iron studies show an elevated ferritin consistent with inflammation 04/22: BUN/creatinine 41/1.76. K3.5.Mild improvement in creatinine. 04/23: Further improvement in creatinine 1.57. 04/24: Creatinine 1.39. BUN 21. Electrolytes in normal limit. Anion gap 7. Acute hypoxic respiratory failure since admission: ABG shows 7.4/PCO2 32.5 PO2 80 on 4 L of oxygen. Advised air fall and pulmonary consult requested. Bronchodilator as needed. Chest CT shows bilateral pleural effusion more on the right side. Thoracocentesis ordered. Repeat chest x-ray consistent with CHF and bibasilar atelectasis and infiltrate worse on the left side. Patient is tachypneic with respiratory 24, labored breathing using chest wall muscles. 2. Acute anemia from upper GI bleed loss: Discussed with the general surgeon. Hemoglobin is 8.2. Platelet count normal. Patient had large-volume hematemesis and EGD was done which showed visible vessel with an ulcer in distal esophagus. No varices. Patient also had fever for which patient started on Unasyn and iron supplement.. 04/23: Hemoglobin improved to 8.1. Continue Protonix. 04/24: Hemoglobin 8.7. 3. Probability of aspiration/aspiration pneumonia and bilateral pleural effusion: Patient developed fever and leukocytosis. On Unasyn. Chest CTA shows pleural effusion bilateral, more on the right side with moderate pericardial effusion. Shows reactive adenopathy. 2D echo EF 55% no significant valvular abnormality with normal diastole and no pericardial effusion. 04/24: Patient having spikes of fever. Blood cultures x2, urine culture and UA ordered. IV Unasyn changed to Zosyn. ID consulted. 4. New onset A. fib, hypertension and dyslipidemia: ? EF on the echo was normal as mentioned above. ? He did convert to normal sinus rhythm with the addition of p.o. metoprolol to his Cardizem drip, continue with metoprolol 25 mg p.o. twice daily as well as Cardizem 240 mg daily ? Continue with Lipitor 05/01: Patient medical A. fib with RVR. Metoprolol 5 mg IV ordered. If heart rate does not get better we will try digoxin 0.5 mg IV. 5. Acute on chronic HFpEF with bilateral pleural effusion: Patient is also chronically short of breath with bilateral pleural effusion from acute on chronic HFpEF. Patient has not required BiPAP for 3 days. He will need to be put on diuretic as per tolerated by hemodynamics but currently his pressure is low. Prescription given for Lasix 20 mg daily with holding parameters. 04/24: Patient not able to be dialyzed because of low blood pressure and acute kidney injury. On Lasix 20 mg DVT: SCDs. Total time of the visit including total time spent in counseling or coordination of care, (more than 50% of the total time, spent in obtaining medical information from nurses and other ancillary care providers,explaining to the patient about labs, imaging, diagnosis and management of active complex medical conditions), ID and pulmonary consult, review of labs and imaging is 60 minutes. Clinical Impression(s) from Imaging Studies Chest CTA 04/18/22 01:30 IMPRESSION: 1. Bilateral pleural effusions with reactive adenopathy. 2. No PE. 3. Moderate-size pericardial effusion. Electronically Signed: Ankit Moyer MD at 3:33 EST , Renal Ultrasound 04/18/22 05:27 IMPRESSION: 1. Mild right hydronephrosis. 2. 5 cm exophytic cyst of the left kidney. Electronically Signed: Wale Woodruff MD at 12:29 EST , Echocardiogram 04/18/22 05:55 Interpretation Summary The estimated ejection fraction is 55 %. No significant valvular abnormalities Ordering Physician: Shaun Landry Performed By: Candelario Klein RCS X-Ray 04/20/22 20:50 IMPRESSION: 1. Bilateral pleural effusions. 2. There is a feeding tube/ nasogastric tube noted. The tip is in the region of the stomach. KUB X-Ray 04/20/22 23:38 IMPRESSION: 1. NG tube extends into the proximal stomach and appears to be turns upon itself in the proximal stomach. 2. Normal bowel gas pattern. 3. Bibasilar atelectasis greater on the RIGHT than LEFT and RIGHT effusion suspected. Electronically Signed: Wale Dunn MD at 0:43 EST , Charges/Coding Visit Charges Inpatient E&M: 07917 Subs Hosp L3
[2022-04-24 12:21] LABS: ALB/GLOB Ratio 0.3 RATIO (0.9-2.4); Globulin 4.6 g/dL (2.2-4.2); LDH 489 U/L (87-241)
[2022-04-24 13:01] LABS: Allen Test Positive; Base Excess -2 mmol/L (-2 to +2); Bicarbonate 22.3 mmol/L (22-26); Blood Gas Specimen Type ART; O2 Delivery Device Cannula; PO2 80 mmHG (75-100); SITE R Radial; SO2 96 % (95-99); Total Carbon Dioxide 23 mmol/L; pCO2 32.5 mmHg (35-45); pH 7.44 (7.35-7.45)
[2022-04-24 13:04] LABS: Bacteria 0 SEEN /hpf (None Seen); Mucous, Urine 0 SEEN /hpf (<or=2+); Red Blood Cells-Urine 0 SEEN /hpf (0-5); Squamous Epithelial Cells - UA 0 SEEN /hpf (0-5); White Blood Cells 0 SEEN /hpf (0-5)
[2022-04-24 13:08] LABS: Color, Urine Straw (Yellow); Glucose, Dipstick Normal (Normal); Ketone-Dipstick Negative (Negative); Leukocyte Esterase-Dipstick Negative /ul (Negative); Nitrite-Dipstick Negative (Negative); Occult Blood-Urine 25 /ul (Negative); Protein-Dipstick 30 mg/dl (Negative); Urine Bilirubin Dipstick Negative (Negative); Urine Clarity Sl. Cloudy (Clear); Urine Urobilinogen Normal (Normal)
--- NOTE | 2022-04-24 13:26 | CPS ---
Maggy DOWNING called me about this patient with new orders from Dr Acosta. ABG and bipap. Upon walking into the patients, he was sating 98% on 4LPM. After running the ABGs patients gases were within normal limits except for his pCO2 of 32. Made Maggy DOWNING aware that bipap is not indicated. Maggy DOWNING notified Dr Acosta and he suggested to put the patient on AIRVO due to rspiratory failure. Maggy suggested we wait to put him on when he is back from his thoracentsis. He is going down at 2:15p for this procedure. Will re-evaluate the patient when he returns.
[2022-04-24 13:33] LABS: Amorphous Sediment 1+
[2022-04-24] MEDS: Metoprolol Tartrate 5 MG/5 ML Vial IV (14:02)
[2022-04-24] MEDS: Digoxin 250 MCG/ML Ampul 500 MCG IV (14:23)
[2022-04-24] MEDS: Lidocaine 1% (20 ml mdv) 20 ML Vial INFILT (14:52)
--- NOTE | 2022-04-24 15:01 | RAD_ITS ---
STUDY: X-RAY CHEST REASON FOR EXAM: Male, 76 years old. POST THORA TECHNIQUE: AP inspiration and expiration views. COMPARISON: Comparison is made with prior study dated 04/24/2022 at 11:46 AM. FINDINGS: The patient is status post right thoracentesis. No evidence of pneumothorax. Persistent pleural parenchymal changes at the left lung base. RAD/Chest Insp/Exp 2 View IMPRESSION: Status post right thoracentesis. No evidence of pneumothorax. Persistent pleural-parenchymal changes at the left lung base. Electronically Signed: Juan Linton MD at 15:22 EST ,
--- NOTE | 2022-04-24 15:02 | CON.PCM.ID_ITS ---
Assessment & Plan Assessment/Plan (1) Leukocytosis: (2) NAZANIN (acute kidney injury): (3) Fever: PLAN: Fever curve improving. NAZANIN and wbc much improved. Cxs neg so far. Concern for aspiration. Thoracentesis planned. Cont zosyn for now. Will follow, thank you HPI Consult Data Date of Consult: 04/24/22 HPI Narrative Reason for Consultation: fever HPI Narrative: EUGENIA DONOHUE, is a 76 M who presented 04/18 with 2 weeks of weakness. Had recent dx lung cancer. Had NAZANIN and afib here. Course complicated by fever, suspected aspiration pneumonia. Started on unasyn, broadened to zosyn today. Not able to recall much of what has happened. Denies fever, cough, SOB, n/v/d. Full ROS performed and neg except as noted above. [facility] Medical History HTN (hypertension) Lung cancer Home Medications albuterol sulfate 90 mcg/actuation aerosol inhaler 1 - 2 puff inhalation Q4H PRN SOB 04/18/22 [History Last Taken Unknown] atorvastatin 20 mg tablet 20 mg PO QHS 04/18/22 [History Last Taken Unknown] fluticasone fur. 100 mcg-umeclid 62.5 mcg-vilant 25 mcg inhalat.powder (Trelegy Ellipta) 1 inh inhalation DAILY 04/18/22 [History Last Taken Unknown] amlodipine 5 mg-benazepril 10 mg capsule 1 cap PO DAILY #30 caps 04/23/22 [Rx Last Taken Unknown] amoxicillin 500 mg-potassium clavulanate 125 mg tablet (Augmentin) 1 tab PO BID #8 tabs 04/23/22 [Rx Last Taken Unknown] furosemide 20 mg tablet 20 mg PO DAILY #30 tabs 04/23/22 [Rx Last Taken Unknown] ipratropium 0.5 mg-albuterol 3 mg (2.5 mg base)/3 mL nebulization soln 3 ml inhalation Q6HWA.RT #0 mL 04/23/22 [Rx Last Taken Unknown] metoprolol tartrate 50 mg tablet 50 mg PO BID #0 tabs 04/23/22 [Rx Last Taken Unknown] pantoprazole 40 mg tablet,delayed release 40 mg PO BID #0 tabs 04/23/22 [Rx Last Taken Unknown] potassium chloride 20 mEq tablet,extended release(part/cryst) (Klor-Con M) 40 meq PO DAILY #0 tabs 04/23/22 [Rx Last Taken Unknown] sennosides 8.6 mg-docusate sodium 50 mg tablet (Stool Softener-Stimulant Laxative) 2 tab PO BID PRN PRN Constipation #0 tabs 04/23/22 [Rx Last Taken Unknown] Allergy/AdvReac Type Severity Reaction Status Date / Time No Known Allergies Allergy Verified 04/17/22 22:46 Social History Smoking Status: Current every day smoker tobacco type: cigarettes Physical Exam Const alert and no apparent distress General Appearance: lethargic HEENT normocephalic and head/scalp atraumatic Eyes PERRL and EOMs intact bilaterally Neck No nodes Resp Auscultation: rhonchi and wheezes Cardio Rate: tachycardic GI soft to palpation, non-tender and non-distended Extremity General Extremity: Negative for edema Skin no rashes or lesions noted Neuro CN's II-XII intact bilaterally Lab / Micro Data Attestation: I reviewed the patient's lab results. Result Diagrams: 04/24/22 06:00 04/24/22 06:00 Labs: Laboratory Results - last 24 hr 04/24/22 06:00: WBC 11.9 H, RBC 3.07 L, Hgb 8.7 L, Hct 28.5 L, MCV 92.8, MCH 28.3, MCHC 30.5 L, RDW Std Deviation 51.9 H, RDW Coeff of Yemi 15.1 H, Plt Count 232, MPV 10.0, Immature Gran % (Auto) 1.100 H, Neut % (Auto) 87.7 H, Lymph % (Auto) 5.0 L, [place] % (Auto) 2.4, Eos % (Auto) 3.0, Baso % (Auto) 0.8, Absolute Neuts (auto) 10.4 H, Absolute Lymphs (auto) 0.60 L, Nucleated RBC % 0, Hypochromasia 1+ 04/24/22 06:00: Sodium 140, Potassium 3.8, Chloride 107, Carbon Dioxide 26.0, Anion Gap 7, BUN 21 H, Creatinine 1.39 H, Estim Creat Clear Calc 44.19, Est GFR (MDRD) Af Amer 64, Est GFR (MDRD) Non-Af 53 L, BUN/Creatinine Ratio 15.1, Glucose 105, Calcium 7.4 L 04/24/22 06:00: Lactate Dehydrogenase 489 H, Total Protein 6.0 L, Globulin 4.6 H , Albumin/Globulin Ratio 0.3 L 04/24/22 12:40: Urine Color Straw, Urine Clarity Sl. Cloudy, Urine pH 5.0, Ur Specific [place] 1.020, Urine Protein 30 H, Urine Glucose (UA) Normal, Urine Ketones Negative, Urine Occult Blood 25 H, Urine Nitrite Negative, Urine Bilirubin Negative, Urine Urobilinogen Normal, Ur Leukocyte Esterase Negative, Urine RBC 0 SEEN, Urine WBC 0 SEEN, Ur Squamous Epith Cells 0 SEEN, Amorphous Sediment 1+, Urine Bacteria 0 SEEN, Urine Mucus 0 SEEN ABG Data ABG results: ABG 04/24/22 12:55 Specimen Type ART Sample Site R Radial pH 7.44 Bicarbonate Actual 22.3 Total CO2 23 Base Excess -2 O2 Saturation 96 ABG pCO2 32.5 L ABG pO2 80 Alessandro Test Positive O2 Delivery Device Cannula Liter Flow 4.0 Radiology Impression Chest X-Ray 04/24/22 11:22 IMPRESSION: Findings suggestive of a CHF with superimposed bibasilar atelectasis and small pleural effusions more prominent on the left side. Electronically Signed: Juan Linton MD at 12:41 EST ,
[2022-04-24 15:10] LABS: Cytology, Body Fluid / CSF SEE PATHOLOGY REPORT
[2022-04-24 15:43] LABS: Body Fluid Mononuclear WBC % 96.1 %; Body Fluid Polynuclear WBC # 0.009 10^3/uL; Body Fluid Polynuclear WBC % 3.9 %; Body Fluid Total Cells Counted 0.239 10^3/ul; White Blood Count/Body Fluid 0.229 10^3/uL
[2022-04-24] MEDS: dilTIAZem CD 120 MG Capsule PO ×2 (16:01→21:08)
[2022-04-24 16:15] LABS: Glucose, Body Fluid 106 mg/dL (40-70); LDH,Body Fluid 92 Units/l (Not Establ.); Protein, Body Fluid 2.5 g/dL (Not Establ.)
[2022-04-24 17:19] LABS: Auto B Fluid Analyzer BKGD Ct COUNTS W/IN LIMITS (W/IN LIMITS); Lymphocytes 97 %; Mesothelial Cells 1 %; Neutrophil (Segs) 2 %
[2022-04-24 17:20] LABS: Appearance/Body Fluid CLEAR; Body Fluid QC Type(s) BF1Q,BF2Q; Color/Body Fluid LT YEL; Red Cell Count/Body Fluid 88 /mm3; Source- Body Fluid THORACENTESIS
[2022-04-24] MEDS: dilTIAZem 25 MG/5 ML Vial 15 MG IV BOLUS (18:13)
[2022-04-24] MEDS: Amiodarone 360 MG in Dextrose 5% Viaflo Bag 192.8 ML 33.3 MG CONT INF (20:11)
[2022-04-24] MEDS: Atorvastatin Calcium 20 MG Tablet PO (21:09)
[2022-04-25] VITALS (31 sets, daily range): BP systolic 93–119; BP diastolic 52–91; PULSE 76–103; RESP 18–37; TEMP 36.5–38.2; O2SAT 90–97
[2022-04-25] MEDS: Amiodarone 360 MG in Dextrose 5% Viaflo Bag 192.8 ML 16.7 MG CONT INF ×2 (02:29→15:06)
--- NOTE | 2022-04-25 03:45 | CPS ---
BIPAP NOT IN ROOM
[2022-04-25] MEDS: Menthol/Lanolin/Calamine/Znox 113 GM Tube 1 APPLIC TOPICAL ×3 (05:22→21:40)
[2022-04-25] MEDS: Furosemide 40 MG/4 ML Vial IV (05:48)
[2022-04-25] MEDS: Budesonide Respules 0.5 MG/2 ML AMPUL.NEB. INHALATION (06:46)
[2022-04-25] MEDS: Ipratropium/Albuterol Sulfate 3 ML AMPUL.NEB INHALATION (06:46)
--- NOTE | 2022-04-25 07:50 | CPS ---
off, not in room.
--- NOTE | 2022-04-25 08:54 | CON.PCM.CC_ITS ---
Assessment & Plan Assessment/Plan (1) Debility: PLAN: Plan RECOMMENDATIONS: 1. Agree with empiric antimicrobials. 2. Continue bronchodilators. 3. Wean supplemental oxygen to maintain saturations at or above 90%. 4. Await pleural fluid cytology results. 5. Establish care with oncology. IMPRESSIONS: 1. Shortness of breath with associated hypoxia Most likely multifactorial in etiology with possible underlying obstructive lung disease and pleural effusions contributing. The patient was apparently recently diagnosed with lung cancer through [facility], but has yet to undergo any further work- up or be started on any form of treatment. The patient remains on empiric antimicrobials over concerns for potential aspiration. I agree with continuing bronchodilators as ordered. Plan to wean supplemental oxygen to maintain saturations at or above 90%. The patient did ultimately undergo an ultrasound- guided thoracentesis on April 24 with 400 mL of fluid removed from his right hemithorax. Although the pleural fluid was technically transudative in nature, there was 97% lymphocytes, which is certainly concerning for malignancy. Pleural fluid cultures and cytology are pending. For now, continue supportive measures while awaiting finalized cultures and cytology results. The patient ultimately needs to follow-up with oncology for further work-up and initiation of treatment. 2. Anemia in the setting of hematemesis The patient is status post EGD by general surgery. Continue supportive measures and monitor H&H. Transfuse if hemoglobin drops below 7 g/dL. 3. New onset atrial fibrillation/newly diagnosed lung cancer/history of tobacco dependency in remission Complicates care, management, recovery and prognosis. Continue current medical therapy per hospitalist. This note was generated with [employer] dictation software. It may contain incorrect words, spelling, and punctuation that were not noted in checking the note before signing. HPI Consult Data Date of Consult: 04/26/22 HPI Narrative Reason for Consultation: Shortness of breath, pleural effusion HPI Narrative: The patient is a 76-year-old male, with a history as outlined below, who presented initially to the emergency department on April 18 with shortness of breath. A CTA chest obtained at the time of his hospitalization demonstrated bilateral pleural effusions with reactive lymphadenopathy. Surface echocardiogram demonstrated normal LV size with an ejection fraction of 55%. The patient does have an extensive tobacco abuse history, but reported that he quit smoking 2 months ago. He was apparently recently diagnosed with lung cancer through [facility], but is yet to have further work-up or undergo any form of treatment. His hospital course was complicated by the development of atrial fibrillation with RVR. The patient was also seen in consultation by general surgery on April 20 after he developed hematemesis. 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 The patient's anemia has stabilized. His kidney injury has also improved with a creatinine last noted to be 1.39. Over concerns for worsening respiratory status, the patient underwent an ultrasound-guided thoracentesis on April 24. Ultimately, 400 mL of mary-colored fluid was removed from the patient's right hemithorax. [facility] Medical History HTN (hypertension) Lung cancer Home Medications albuterol sulfate 90 mcg/actuation aerosol inhaler 1 - 2 puff inhalation Q4H PRN SOB 04/18/22 [History Last Taken Unknown] atorvastatin 20 mg tablet 20 mg PO QHS 04/18/22 [History Last Taken Unknown] fluticasone fur. 100 mcg-umeclid 62.5 mcg-vilant 25 mcg inhalat.powder (Trelegy Ellipta) 1 inh inhalation DAILY 04/18/22 [History Last Taken Unknown] amlodipine 5 mg-benazepril 10 mg capsule 1 cap PO DAILY #30 caps 04/23/22 [Rx Last Taken Unknown] amoxicillin 500 mg-potassium clavulanate 125 mg tablet (Augmentin) 1 tab PO BID #8 tabs 04/23/22 [Rx Last Taken Unknown] furosemide 20 mg tablet 20 mg PO DAILY #30 tabs 04/23/22 [Rx Last Taken Unknown] ipratropium 0.5 mg-albuterol 3 mg (2.5 mg base)/3 mL nebulization soln 3 ml inhalation Q6HWA.RT #0 mL 04/23/22 [Rx Last Taken Unknown] metoprolol tartrate 50 mg tablet 50 mg PO BID #0 tabs 04/23/22 [Rx Last Taken Unknown] pantoprazole 40 mg tablet,delayed release 40 mg PO BID #0 tabs 04/23/22 [Rx Last Taken Unknown] potassium chloride 20 mEq tablet,extended release(part/cryst) (Klor-Con M) 40 meq PO DAILY #0 tabs 04/23/22 [Rx Last Taken Unknown] sennosides 8.6 mg-docusate sodium 50 mg tablet (Stool Softener-Stimulant Laxative) 2 tab PO BID PRN PRN Constipation #0 tabs 04/23/22 [Rx Last Taken Unknown] Allergy/AdvReac Type Severity Reaction Status Date / Time No Known Allergies Allergy Verified 04/17/22 22:46 Social History Smoking Status: Current every day smoker tobacco type: cigarettes ROS ROS Narrative 10 systems were reviewed with pertinent positives as noted in the HPI above. Physical Exam Const alert General Appearance: cooperative and ill appearing HEENT normocephalic and head/scalp atraumatic Eyes PERRL, EOMs intact bilaterally and conjunctivae normal Neck supple General: trachea midline Chest inspection of chest normal Resp Effort and Inspection: tachypneic Auscultation: diminished lung sounds Cardio regular rate and regular rhythm GI normal to inspection, nondistended, normoactive bowel sounds Extremity no clubbing, cyanosis or edema Skin no rashes or lesions noted Neuro CN's II-XII intact bilaterally, moves all extremities and no focal motor deficits Psych Mood & Affect: flat affect Lab / Micro Data Result Diagrams: 04/26/22 04:25 04/26/22 04:25 Labs: Laboratory Results - last 24 hr 04/24/22 06:00: Lactate Dehydrogenase 489 H, Total Protein 6.0 L, Globulin 4.6 H , Albumin/Globulin Ratio 0.3 L 04/24/22 11:21: Fluid Glucose 106 H, Fluid Total Protein 2.5, Fluid LDH 92 04/24/22 12:40: Urine Color Straw, Urine Clarity Sl. Cloudy, Urine pH 5.0, Ur Specific [place] 1.020, Urine Protein 30 H, Urine Glucose (UA) Normal, Urine Ketones Negative, Urine Occult Blood 25 H, Urine Nitrite Negative, Urine Bilirubin Negative, Urine Urobilinogen Normal, Ur Leukocyte Esterase Negative, Urine RBC 0 SEEN, Urine WBC 0 SEEN, Ur Squamous Epith Cells 0 SEEN, Amorphous Sediment 1+, Urine Bacteria 0 SEEN, Urine Mucus 0 SEEN 04/24/22 15:07: Fluid Source THORACENTESIS, Fluid Color LT YEL, Fluid Appearance CLEAR, Fluid WBC 0.229, Fluid RBC 88, Fluid Tot Cell Count 0.239, Fld Polynuclear WBCs # 0.009, Fld Polynuclear WBCs % 3.9, Fluid Mononuclear WBCs 0 .220, Fld Mononuclear WBCs % 96.1, Fluid Neutrophils 2, Fluid Lymphocytes 97, Fld Mesothelial Cells 1, Fl Pathologist Comment May follow, Fluid Comment 2 SEE COMMENT ABG Data ABG results: ABG 04/24/22 12:55 Specimen Type ART Sample Site R Radial pH 7.44 Bicarbonate Actual 22.3 Total CO2 23 Base Excess -2 O2 Saturation 96 ABG pCO2 32.5 L ABG pO2 80 Alessandro Test Positive O2 Delivery Device Cannula Liter Flow 4.0 Radiology Impression Thoracentesis Ultrasound 04/24/22 11:21 IMPRESSION: Ultrasound-guided right thoracentesis. Electronically Signed: Juan Linton MD at 15:25 EST , Chest X-Ray 04/24/22 11:22 IMPRESSION: Findings suggestive of a CHF with superimposed bibasilar atelectasis and small pleural effusions more prominent on the left side. Electronically Signed: Juan Linton MD at 12:41 EST , Chest X-Ray 04/24/22 15:01 IMPRESSION: Status post right thoracentesis. No evidence of pneumothorax. Persistent pleural-parenchymal changes at the left lung base. Electronically Signed: Juan Linton MD at 15:22 EST , Charges/Coding Visit Charges Inpatient E&M: 40298 Init Hosp L3
[2022-04-25] MEDS: dilTIAZem CD 120 MG Capsule PO ×2 (09:15→22:18)
[2022-04-25] MEDS: Pantoprazole Sodium 40 MG Tablet PO ×2 (09:15→21:40)
[2022-04-25] MEDS: Ensure Clear 120 ML Liquid PO (09:15)
[2022-04-25] MEDS: Metoprolol Tartrate 50 MG Tablet PO ×2 (09:15→22:57)
--- NOTE | 2022-04-25 09:42 | CASEMGMT ---
SW sent updates to [facility] and let them know patient is not ready for d/c today. SW also sent updates. Plan: [facility] pending patient being medically ready. Teagan MORE
--- NOTE | 2022-04-25 09:47 | EKG12_ITS ---
Test Reason : ARRYTHMIA Blood Pressure : / mmHG Vent. Rate : 086 BPM Atrial Rate : 086 BPM P-R Int : 206 ms QRS Dur : 090 ms QT Int : 380 ms P-R-T Axes : 008 036 090 degrees QTc Int : 454 ms Normal sinus rhythm Low voltage QRS Septal infarct (cited on or before 24-APR-2022) Abnormal ECG When compared with ECG of 24-APR-2022 17:25, Sinus rhythm has replaced Atrial flutter Vent. rate has decreased BY [address] no longer depressed in Inferior leads Confirmed by DONYA BENAVIDES, MESERET ([id number]), market editor JOSE GRAY ([id number]) on 05/02/2022 1:55:10 PM Referred By: KRISTIN Confirmed By:JESSIE NAQVI MD
--- NOTE | 2022-04-25 09:47 | PCM.PN.ID ---
Physical Exam Narrative Feeling better, breathing improved s/p thora, no fever Const alert and no apparent distress Resp Auscultation: diminished lung sounds Cardio regular rate and regular rhythm GI soft to palpation, non-tender and non-distended Skin no rashes or lesions noted ID ID: Route of nutrition/ use of supplements: [] Nutritional Intake: [] IV Site: [] Banks Catheter: [] Assessment & Plan Assessment/Plan (1) Leukocytosis: (2) NAZANIN (acute kidney injury): (3) Fever: PLAN: Fever resolved. NAZANIN and wbc much improved. Cxs neg so far. Concern for aspiration. Thoracentesis showed transudative fluid, cx pending. Cont zosyn for now. Abx started 04/20/22. Day 6, likely can stop soon given clinical improvement. Will follow
--- NOTE | 2022-04-25 13:33 | PCM.PN.HOSP ---
Subjective Subjective Follow-up for respiratory failure, shortness of breath, A. fib with RVR Objective Data Objective Data Vital Signs: Vital Signs Temp Pulse Resp BP Pulse Ox O2 Del Method O2 Flow Rate 99.1 F 76 33 H 93/54 L 92 Nasal Cannula 4 04/25/22 12:00 04/25/22 13:00 04/25/22 13:00 04/25/22 13:00 04/25/22 13:02 04/25/22 13:02 04/25/22 13:02 FiO2 4 04/24/22 07:12 Oxygen Flow Rate (L/min) [5] 4 Oxygen Flow Rate (L/min) [4] 4 Oxygen Flow Rate (L/min) [3] 4 Oxygen Flow Rate (L/min) [1 ( 4 Initial Baseline)] Oxygen Flow Rate (L/min) 4 Oxygen Delivery Method [5] Nasal Cannula Oxygen Delivery Method [4] Nasal Cannula Oxygen Delivery Method [3] Nasal Cannula Oxygen Delivery Method [2] Room Air Oxygen Delivery Method [1 ( Nasal Cannula Initial Baseline)] Oxygen Delivery Method Nasal Cannula Weight: 150 lb Body Mass Index (BMI) 22.1 Intake & Output: Intake and Output for Last 24 Hours 04/23/22 04/24/22 04/25/22 23:59 23:59 23:59 Intake Total 2693.17 / 2693.17 1887.56 / 2120.86 1445.57 / 1445.57 Output Total 2225 / 3575 2875 / 2875 1000 / 1000 Balance 468.17 / -881.83 -987.44 / -754.14 445.57 / 445.57 Lab / Micro Data Result Diagrams: 04/24/22 06:00 04/24/22 06:00 Labs: Laboratory Results - last 24 hr 04/24/22 11:21: Fluid Glucose 106 H, Fluid Total Protein 2.5, Fluid LDH 92 04/24/22 12:40: Urine RBC 0 SEEN, Urine WBC 0 SEEN, Ur Squamous Epith Cells 0 SEEN, Amorphous Sediment 1+, Urine Bacteria 0 SEEN, Urine Mucus 0 SEEN 04/24/22 15:07: Fluid Source THORACENTESIS, Fluid Color LT YEL, Fluid Appearance CLEAR, Fluid WBC 0.229, Fluid RBC 88, Fluid Tot Cell Count 0.239, Fld Polynuclear WBCs # 0.009, Fld Polynuclear WBCs % 3.9, Fluid Mononuclear WBCs 0.220, Fld Mononuclear WBCs % 96.1, Fluid Neutrophils 2, Fluid Lymphocytes 97, Fld Mesothelial Cells 1, Fl Pathologist Comment May follow, Fluid Comment 2 SEE COMMENT Micro: Microbiology 04/24/22 15:08 Fluid - Thoracentesis Fluid Body Fluid Culture - Preliminary No growth-Final to follow 04/18/22 04:32 Blood Culture (Wb) - Anticubital Left Blood Culture - Final No growth in 5 days. 04/18/22 04:46 Blood Culture (Wb) - Left Hand Blood Culture - Final No growth in 5 days. 04/18/22 02:20 Urine, Clean Catch Urine Culture - Final Mixed Gram Positive Organisms 04/20/22 20:55 Stool Stool Occult Blood (IX) - Final Occult Blood Positive 04/20/22 15:35 Stool Stool Occult Blood (XI) - Final 04/18/22 22:55 Nasal Secretion SARS-CoV-2 Antigen (Rapid) - Final 04/18/22 01:10 Nasal Secretion SARS-CoV-2 & FLU Antigen (Rapid) - Final Radiography Diagnostic Testing: Radiology Impression Thoracentesis Ultrasound 04/24/22 11:21 IMPRESSION: Ultrasound-guided right thoracentesis. Electronically Signed: Juan Linton MD at 15:25 EST , Chest X-Ray 04/24/22 15:01 IMPRESSION: Status post right thoracentesis. No evidence of pneumothorax. Persistent pleural-parenchymal changes at the left lung base. Electronically Signed: Juan Linton MD at 15:22 EST , Physical Exam Narrative Patient converted to sinus rhythm on amnio drip last night. Twelve-lead EKG was done in the morning shows normal sinus rhythm, QTC 454 ms. Heart rate 85/min. Low-grade temperature 99.9 ?F on 04/25. I think patient might be short of breath from multiple etiologies from bilateral pleural effusion, lung cancer status postresection, failure to thrive with with anorexia and not able to eat before admission. Physical exam General: Alert, Oriented x3, Cooperative in mild respiratory distress HEENT: Atraumatic, PERRLA, EOMI, Normocephalic Oral: Oral mucosa dry. No Gingival or Mucosal Lesions/ Ulcerations Neck: Supple, No JVD, Negative Carotid Bruits Lungs: Air entry diminished in bilateral lung bases, air entry improved status post right thoracocentesis. No crepitations. Cardiovascular: Converted to sinus rhythm. Regular rate, Regular Rhythm, Normal S1, Normal S2, No murmurs Abdomen: Bowel Sounds Present, Soft, Non Tender, Non-Distended : No renal angle tenderness. No suprapubic tenderness. Extremities: Mild bilateral ankle edema, Capillary Refill Less than 3 Seconds Skin: No rashes, No breakdown Musculoskeletal: No Tenderness to Palpation of Joints or Extremities, ROM restricted. Weakness lower extremities chronic, 4/5. Neurological: Cranial nerves II-XII grossly intact, DTR 2+/4. Psych/Mental Status: Flat affect. Assessment & Plan Assessment/Plan (1) Hematemesis of unknown cause: PLAN: Plan 76-year-old gentleman with history of malignant lung nodule status postresection was admitted with 2-week history of progressively worsening shortness of breath on exertion, generalized weakness, unable to get up. In ED he was found to be in NAZANIN and other multiple issues. 1. NAZANIN exact etiology unclear possible prerenal ? Initially renal function worsened. ? He is intermittently febrile however blood cultures are negative, CT of the chest was negative for pneumonia. Urine culture is as mixed ember ? Continue with PPI appreciate general surgery consult, will repeat an H&H when he is back to the floor, completed 2 units of PRBCs ? Has been COVID tested twice which are negative. ? Unsure as to the pathology of his nodule but he did have a lung resection at [facility] in [place] on 08/30/2021. ? Continue with PT/OT for possible placement ? We will try to obtain a stool guaiac to evaluate for any blood loss, as he converted to normal sinus rhythm and his echo that demonstrated normal left atrium, will discontinue his therapeutic Lovenox, this was likely a reaction to his illness ? Iron studies show an elevated ferritin consistent with inflammation 04/22: BUN/creatinine 41/1.76. K3.5.Mild improvement in creatinine. 04/23: Further improvement in creatinine 1.57. 04/24: Creatinine 1.39. BUN 21. Electrolytes in normal limit. Anion gap 7. 04/25: Urine output about 2.8 L. Patient still has Banks catheter. Acute hypoxic respiratory failure since admission: ABG shows 7.4/PCO2 32.5 PO2 80 on 4 L of oxygen. Advised air fall and pulmonary consult requested. Bronchodilator as needed. Chest CT shows bilateral pleural effusion more on the right side. Thoracocentesis ordered. Repeat chest x-ray consistent with CHF and bibasilar atelectasis and infiltrate worse on the left side. Patient is tachypneic with respiratory 24, labored breathing using chest wall muscles. 04/25: Patient respiratory status better after thoracocentesis. Prelim pleural fluid culture shows no growth but full result pending. Cytology and pathologist comment pending. Patient has a history of lung cancer. Pleural fluid analysis consistent with transudate with 97% lymphocytes concerning for malignancy. Patient has diagnosis of lung cancer and had resection in [facility] in August 2021. Details of pathology unavailable. 2. Acute anemia from upper GI bleed loss: Discussed with the general surgeon. Hemoglobin is 8.2. Platelet count normal. Patient had large-volume hematemesis and EGD was done which showed visible vessel with an ulcer in distal esophagus. No varices. Patient also had fever for which patient started on Unasyn and iron supplement.. 04/23: Hemoglobin improved to 8.1. Continue Protonix. 04/24: Hemoglobin 8.7. 3. Probability of aspiration/aspiration pneumonia and bilateral pleural effusion: Patient developed fever and leukocytosis. On Unasyn. Chest CTA shows pleural effusion bilateral, more on the right side with moderate pericardial effusion. Shows reactive adenopathy. 2D echo EF 55% no significant valvular abnormality with normal diastole and no pericardial effusion. 04/24: Patient having spikes of fever. Blood cultures x2, urine culture and UA ordered. IV Unasyn changed to Zosyn. ID consulted. 04/25: ID consult and follow-up reviewed. On antibiotic for possible total 7 days of treatment 4. New onset A. fib, hypertension and dyslipidemia: ? EF on the echo was normal as mentioned above. ? He did convert to normal sinus rhythm with the addition of p.o. metoprolol to his Cardizem drip, continue with metoprolol 25 mg p.o. twice daily as well as Cardizem 240 mg daily ? Continue with Lipitor 05/01: Patient medical A. fib with RVR. Metoprolol 5 mg IV ordered. If heart rate does not get better we will try digoxin 0.5 mg IV. 5. Acute on chronic HFpEF with bilateral pleural effusion: Patient is also chronically short of breath with bilateral pleural effusion from acute on chronic HFpEF. Patient has not required BiPAP for 3 days. He will need to be put on diuretic as per tolerated by hemodynamics but currently his pressure is low. Prescription given for Lasix 20 mg daily with holding parameters. 04/24: Patient not able to be dialyzed because of low blood pressure and acute kidney injury. On Lasix 20 mg DVT: SCDs. Total time of the visit including total time spent in counseling or coordination of care, (more than 50% of the total time, spent in obtaining medical information from nurses and other ancillary care providers,explaining to the patient about labs, imaging, diagnosis and management of active complex medical conditions), ID and pulmonary consult, review of labs and imaging is 60 minutes. Clinical Impression(s) from Imaging Studies Chest CTA 04/18/22 01:30 IMPRESSION: 1. Bilateral pleural effusions with reactive adenopathy. 2. No PE. 3. Moderate-size pericardial effusion. Electronically Signed: Ankit Moyer MD at 3:33 EST , Renal Ultrasound 04/18/22 05:27 IMPRESSION: 1. Mild right hydronephrosis. 2. 5 cm exophytic cyst of the left kidney. Electronically Signed: Wale Woodruff MD at 12:29 EST , Echocardiogram 04/18/22 05:55 Interpretation Summary The estimated ejection fraction is 55 %. No significant valvular abnormalities Ordering Physician: Shaun Landry Performed By: Candelario Klein RCS X-Ray 04/20/22 20:50 IMPRESSION: 1. Bilateral pleural effusions. 2. There is a feeding tube/ nasogastric tube noted. The tip is in the region of the stomach. KUB X-Ray 04/20/22 23:38 IMPRESSION: 1. NG tube extends into the proximal stomach and appears to be turns upon itself in the proximal stomach. 2. Normal bowel gas pattern. 3. Bibasilar atelectasis greater on the RIGHT than LEFT and RIGHT effusion suspected. Electronically Signed: Wale Dunn MD at 0:43 EST , Charges/Coding Visit Charges Inpatient E&M: 17409 Subs Hosp L3
[2022-04-25] MEDS: Ensure Plus High Protein 120 ML LIQUID PO (13:47)
[2022-04-25] MEDS: Amiodarone 200 MG Tablet PO (21:07)
[2022-04-25] MEDS: 0.9% Saline Lock 10 ML Syringe IV (21:16)
[2022-04-25] MEDS: Atorvastatin Calcium 20 MG Tablet PO (21:40)
[2022-04-26] VITALS (25 sets, daily range): BP systolic 88–109; BP diastolic 41–70; PULSE 73–101; RESP 20–38; TEMP 36.1–39.3; O2SAT 90–100
[2022-04-26] MEDS: Acetaminophen 650 MG Suppository RC (04:13)
[2022-04-26 05:18] LABS: Absolute Neutrophil Count 5.5 X10^3/uL (2.0-7.7); Basophil# 0.03 X10^3/uL; Basophil% 0.5 % (0-1); Eosinophil# 0.16 X10^3/uL; Eosinophils% 2.5 % (0-5); Hematocrit 26.4 % (40-54); Hemoglobin 8.1 g/dL (13.0-16.5); Lymphocyte % 7.7 % (19-41); Mean Corp Hgb Conc 30.7 g/dL (32-36); Mean Corpuscular Hgb 28.7 pg (27.0-32.0); Mean Corpuscular Volume 93.6 fL (80-94); Mean Platelet Vol. 10.4 fl (6.2-12.0); Monocyte% 4.6 % (0-10); NRBC Flagged by Analyzer 0.3 % (0-5); Neutrophil # 5.46 X10^3/uL (2.7-7.7); Neutrophil % 83.8 % (47-70); POSITIVE DIFFERENTIAL YES; POSITIVE MORPHOLOGY YES; Platelet Count 174 K/mm3 (150-450); RBC Distribution Width CV 15.3 % (11.6-14.6); Red Blood Count 2.82 M/mm3 (4.6-6.2); White Blood Count 6.5 K/mm3 (4.4-11.0)
[2022-04-26 05:25] LABS: Differential Indicated SCAN CRITERIA MET
[2022-04-26] MEDS: Menthol/Lanolin/Calamine/Znox 113 GM Tube 1 APPLIC TOPICAL ×3 (05:38→21:20)
[2022-04-26] MEDS: Amiodarone 200 MG Tablet PO ×2 (05:41→21:27)
[2022-04-26 05:43] LABS: Anisocytosis 1+
[2022-04-26 05:44] LABS: Hypochromasia RARE
[2022-04-26 05:46] LABS: Anion Gap 9 (5-15); BUN 23 mg/dL (7-18); BUN/Creat Ratio 11.6 RATIO (10-20); Calcium,Total 7.2 mg/dL (8.5-10.1); Chloride 104 mmol/L (98-107); Creatinine, Serum 1.98 mg/dL (0.70-1.30); EST Glomerular Filtration Rate 35 mL/min (>60); Est Glom Filt Rate - Afr Amer 43 mL/min (>60); Estimated Creatinine Clearance 31.02 ml/min; Glucose 134 mg/dL (74-106); Potassium 3.4 mmol/L (3.5-5.1); Sodium Level 140 mmol/L (136-145)
--- NOTE | 2022-04-26 06:49 | RAD_ITS ---
INDICATION: increased 02 requirements EXAMINATION/TECHNIQUE: X-RAY - XR Chest 1 View COMPARISON: None. FINDINGS: LINES/DEVICES: None. LUNGS: Increased opacity in the right lung base with volume loss. Lucency medially at the right lung base uncertain origin, may be hiatal hernia versus other bowel gas projecting over the lower chest due to elevated hemidiaphragm and volume loss. A setting of recent right thoracentesis, loculated pneumothorax could also have this appearance. No definite pneumothorax identified. Small bilateral pleural effusions not significantly changed. Left basilar atelectasis not significantly changed. MEDIASTINUM: Unremarkable. CARDIAC SILHOUETTE: Not enlarged. BONES AND SOFT TISSUES: No acute abnormalities. RAD/Chest 1 View (Portable) IMPRESSION: Increased atelectasis in the right lung base with volume loss. Correlate for mucous plugging. Localized lucency medially at the right lung base uncertain etiology, potentially loculated pneumothorax given the history of recent right thoracentesis, or this may be bowel related to volume loss/elevated hemidiaphragm, versus hiatal hernia. Follow-up chest x-ray including PA and lateral view may be helpful. No change in the small pleural effusions. Electronically Signed: Laxmi Thorne MD at 7:34 EST ,
--- NOTE | 2022-04-26 06:50 | NURSING ---
pt 02 desating in the 80s, LS dim. Switched to 15L highflow and sats only to 85%, called RT to check on pt. Placed pt on nonrebreather now 02 wnt up to 92%. Notified MD, cxr stat ordered.
[2022-04-26] MEDS: Ipratropium/Albuterol Sulfate 3 ML AMPUL.NEB INHALATION ×2 (06:58→13:17)
[2022-04-26] MEDS: Budesonide Respules 0.5 MG/2 ML AMPUL.NEB. INHALATION (06:58)
--- NOTE | 2022-04-26 08:12 | NURSING ---
This RN called and updated pt's daughter, Maggy.
--- NOTE | 2022-04-26 10:16 | CASEMGMT ---
Physician called [facility] and asked SW to make a referral to Hospice. Physician spoke with patient's son and he agreed. SW called patient's son Ric. Ric confirmed he is okay with [facility]. SW let him know SW will make the referral and they will call him to set up a meeting. SW did explain the d/c options to Ric. [facility] explained right now the inpatient Hospice unit is full, patient could go home on Hospice or he could go to a detention on Hospice. SW did explain that if patient went to a detention on Hospice he would have to pay the room and board and insurance would pay for the Hospice services. Ric thought his dad may be able to pay at a detention, but he definitely cannot go home on Hospice. [facility] let Ric know to be expecting a phone call. [facility] called Ana at [facility] regarding referral. [facility] also faxed information. Teagan Galo [employer]
--- NOTE | 2022-04-26 10:35 | PN.HOSP_ITS ---
Subjective Subjective Seen and examined. Patient very short of breath, altered mental status confused. Cannot have meaningful talk. BP low 88/41. Heart rate is controlled. Fever 102 at 3 AM. Severe hypoxia. Objective Data Objective Data Vital Signs: Vital Signs Temp Pulse Resp BP Pulse Ox O2 Del Method O2 Flow Rate 97.5 F L 88 22 H 98/47 L 93 Airvo 59 04/26/22 10:00 04/26/22 10:08 04/26/22 10:08 04/26/22 10:00 04/26/22 10:08 04/26/22 10:00 04/26/22 10:00 FiO2 95 04/26/22 10:08 Oxygen Flow Rate (L/min) [5] 4 Oxygen Flow Rate (L/min) [4] 4 Oxygen Flow Rate (L/min) [3] 4 Oxygen Flow Rate (L/min) [1 ( 4 Initial Baseline)] Oxygen Flow Rate (L/min) 59 Oxygen Delivery Method [5] Nasal Cannula Oxygen Delivery Method [4] Nasal Cannula Oxygen Delivery Method [3] Nasal Cannula Oxygen Delivery Method [2] Room Air Oxygen Delivery Method [1 ( Nasal Cannula Initial Baseline)] Oxygen Delivery Method Airvo Weight: 150 lb Body Mass Index (BMI) 22.1 Intake & Output: Intake and Output for Last 24 Hours 04/24/22 04/25/22 04/26/22 23:59 23:59 23:59 Intake Total 1887.56 / 2120.86 1620.70 / 1620.70 100 / 100 Output Total 2875 / 2875 2850 / 2850 300 / 300 Balance -987.44 / -754.14 -1229.30 / -1229.30 -200 / -200 Lab / Micro Data Result Diagrams: 04/26/22 04:25 04/26/22 04:25 Labs: Laboratory Results - last 24 hr 04/26/22 04:25: WBC 6.5, RBC 2.82 L, Hgb 8.1 L, Hct 26.4 L, MCV 93.6, MCH 28.7, MCHC 30.7 L, RDW Std Deviation 52.0 H, RDW Coeff of Yemi 15.3 H, Plt Count 174, MPV 10.4, Immature Gran % (Auto) 0.900, Neut % (Auto) 83.8 H, Lymph % (Auto) 7.7 L, [place] % (Auto) 4.6, Eos % (Auto) 2.5, Baso % (Auto) 0.5, Absolute Neuts (auto) 5.5, Absolute Lymphs (auto) 0.50 L, Nucleated RBC % 0.3, Hypochromasia RARE, Anisocytosis 1+ 04/26/22 04:25: Sodium 140, Potassium 3.4 L, Chloride 104, Carbon Dioxide 27.0, Anion Gap 9, BUN 23 H, Creatinine 1.98 H, Estim Creat Clear Calc 31.02, Est GFR (MDRD) Af Amer 43 L, Est GFR (MDRD) Non-Af 35 L, BUN/Creatinine Ratio 11.6, Glucose 134 H, Calcium 7.2 L Micro: Microbiology 04/24/22 12:40 Urine Catheter - Banks Urine Culture - Final Culture exhibits no growth. 04/24/22 15:08 Fluid - Thoracentesis Fluid Gram Stain - Final 04/24/22 15:08 Fluid - Thoracentesis Fluid Body Fluid Culture - Final Culture exhibits no growth. 04/18/22 04:32 Blood Culture (Wb) - Anticubital Left Blood Culture - Final No growth in 5 days. 04/18/22 04:46 Blood Culture (Wb) - Left Hand Blood Culture - Final No growth in 5 days. 04/18/22 02:20 Urine, Clean Catch Urine Culture - Final Mixed Gram Positive Organisms 04/20/22 20:55 Stool Stool Occult Blood (XI) - Final Occult Blood Positive 04/20/22 15:35 Stool Stool Occult Blood (XI) - Final 04/18/22 22:55 Nasal Secretion SARS-CoV-2 Antigen (Rapid) - Final 04/18/22 01:10 Nasal Secretion SARS-CoV-2 & FLU Antigen (Rapid) - Final Radiography Diagnostic Testing: Radiology Impression Chest X-Ray 04/26/22 06:49 IMPRESSION: Increased atelectasis in the right lung base with volume loss. Correlate for mucous plugging. Localized lucency medially at the right lung base uncertain etiology, potentially loculated pneumothorax given the history of recent right thoracentesis, or this may be bowel related to volume loss/elevated hemidiaphragm, versus hiatal hernia. Follow-up chest x-ray including PA and lateral view may be helpful. No change in the small pleural effusions. Electronically Signed: Laxmi Thorne MD at 7:34 EST , Physical Exam Narrative Overall patient deteriorated last night/supervisor lead burning. Patient very tachypneic. Requiring 15 L of oxygen and put on air Vo. BP was also low. Heart rate sinus rhythm.T-max 102.8 Fahrenheit on 04/26. Physical exam General: Lethargic, respiratory distress, incomprehensible. Disoriented. HEENT: Atraumatic, PERRLA, EOMI, Normocephalic Oral: Oral mucosa dry. On Airvo. Neck: Supple, No JVD, Negative Carotid Bruits Lungs: Air entry diminished in bilateral lung bases, air entry improved status post right thoracocentesis. No crepitations. Cardiovascular: Converted to sinus rhythm. Regular rate, Regular Rhythm, Normal S1, Normal S2, No murmurs Abdomen: Bowel Sounds sluggish, Soft, Non Tender, Non-Distended : No renal angle tenderness. No suprapubic tenderness. Extremities: Mild bilateral ankle edema, Capillary Refill Less than 3 Seconds Skin: No rashes, No breakdown Musculoskeletal: No Tenderness to Palpation of Joints or Extremities, ROM restricted. Weakness lower extremities chronic, 4/5. Neurological: Cranial nerves II-XII grossly intact, DTR 2+/4. Psych/Mental Status: Flat affect. Assessment & Plan Assessment/Plan (1) Hematemesis of unknown cause: PLAN: Plan 76-year-old gentleman with history of malignant lung nodule status postresection was admitted with 2-week history of progressively worsening shortness of breath on exertion, generalized weakness, unable to get up. In ED he was found to be in NAZANIN and other multiple issues. 1. NAZANIN exact etiology unclear possible prerenal ? Initially renal function worsened. ? He is intermittently febrile however blood cultures are negative, CT of the chest was negative for pneumonia. Urine culture is as mixed ember ? Continue with PPI appreciate general surgery consult, will repeat an H&H when he is back to the floor, completed 2 units of PRBCs ? Has been COVID tested twice which are negative. ? Unsure as to the pathology of his nodule but he did have a lung resection at [facility] in [place] on 08/30/2021. ? Continue with PT/OT for possible placement ? We will try to obtain a stool guaiac to evaluate for any blood loss, as he converted to normal sinus rhythm and his echo that demonstrated normal left atrium, will discontinue his therapeutic Lovenox, this was likely a reaction to his illness ? Iron studies show an elevated ferritin consistent with inflammation 04/22: BUN/creatinine 41/1.76. K3.5.Mild improvement in creatinine. 04/23: Further improvement in creatinine 1.57. 04/24: Creatinine 1.39. BUN 21. Electrolytes in normal limit. Anion gap 7. 04/25: Urine output about 2.8 L. Patient still has Banks catheter. Acute hypoxic respiratory failure since admission: ABG shows 7.4/PCO2 32.5 PO2 80 on 4 L of oxygen. Advised air fall and pulmonary consult requested. Bronchodilator as needed. Chest CT shows bilateral pleural effusion more on the right side. Thoracocentesis ordered. Repeat chest x-ray consistent with CHF and bibasilar atelectasis and infiltrate worse on the left side. Patient is tachypneic with respiratory 24, labored breathing using chest wall muscles. 04/25: Patient respiratory status better after thoracocentesis. Patient had 400 mmHg thoracocentesis on 04/24. Prelim pleural fluid culture shows no growth but full result pending. Cytology and pathologist comment pending. Patient has a history of lung cancer. Pleural fluid analysis consistent with transudate with 97% lymphocytes concerning for malignancy. Patient has diagnosis of lung cancer and had resection in [facility] in August 2021. Details of pathology unavailable. 04/26: Patient found in respiratory distress tachypneic and hypoxic in the morning. Repeat chest x-ray in the morning shows increased atelectasis in right lung base with volume loss, localized lucency at right lung base, exact etiology unclear. Possibility of loculated pneumothorax after recent right trigger synthesis. No change in the small pleural effusion. Earlier, patient was on nonrebreather. Respiratory therapist called and put on Airvo. I called the son and he is agreeable for palliative/hospice consult. Hospice consult called. Family meeting in less than 1 hour about 11 AM. Currently inpatient hospice service does not have bed therefore patient will stay over the weekend. 2. Acute anemia from upper GI bleed loss: Discussed with the general surgeon. Hemoglobin is 8.2. Platelet count normal. Patient had large-volume hematemesis and EGD was done which showed visible vessel with an ulcer in distal esophagus. No varices. Patient also had fever for which patient started on Unasyn and iron supplement.. 04/23: Hemoglobin improved to 8.1. Continue Protonix. 04/24: Hemoglobin 8.7. 04/26: Hemoglobin 8.1. 3. Probability of aspiration/aspiration pneumonia and bilateral pleural effusion: Patient developed fever and leukocytosis. On Unasyn. Chest CTA shows pleural effusion bilateral, more on the right side with moderate pericardial effusion. Shows reactive adenopathy. 2D echo EF 55% no significant valvular abnormality with normal diastole and no pericardial effusion. 04/24: Patient having spikes of fever. Blood cultures x2, urine culture and UA ordered. IV Unasyn changed to Zosyn. ID consulted. 04/25: ID consult and follow-up reviewed. On antibiotic for possible total 7 days of treatment 4. New onset A. fib, hypertension and dyslipidemia: ? EF on the echo was normal as mentioned above. ? He did convert to normal sinus rhythm with the addition of p.o. metoprolol to his Cardizem drip, continue with metoprolol 25 mg p.o. twice daily as well as Cardizem 240 mg daily ? Continue with Lipitor 05/01: Patient medical A. fib with RVR. Metoprolol 5 mg IV ordered. If heart rate does not get better we will try digoxin 0.5 mg IV. 5. Acute on chronic HFpEF with bilateral pleural effusion: Patient is also chronically short of breath with bilateral pleural effusion from acute on chronic HFpEF. Patient has not required BiPAP for 3 days. He will need to be put on diuretic as per tolerated by hemodynamics but currently his pressure is low. Prescription given for Lasix 20 mg daily with holding parameters. 04/24: Patient not able to be dialyzed because of low blood pressure and acute kidney injury. On Lasix 20 mg DVT: SCDs. Total time of the visit including total time spent in counseling or coordination of care, (more than 50% of the total time, spent in obtaining medical information from nurses and other ancillary care providers,explaining to the patient about labs, imaging, diagnosis and management of active complex medical conditions), aviation consultant correctional sergeant, ID, hospice discussion with patient's son, review of labs and imaging is 60 minutes Clinical Impression(s) from Imaging Studies Chest CTA 04/18/22 01:30 IMPRESSION: 1. Bilateral pleural effusions with reactive adenopathy. 2. No PE. 3. Moderate-size pericardial effusion. Electronically Signed: Ankit Moyer MD at 3:33 EST , Renal Ultrasound 04/18/22 05:27 IMPRESSION: 1. Mild right hydronephrosis. 2. 5 cm exophytic cyst of the left kidney. Electronically Signed: Wale Woodruff MD at 12:29 EST , Echocardiogram 04/18/22 05:55 Interpretation Summary The estimated ejection fraction is 55 %. No significant valvular abnormalities Ordering Physician: Shaun Landry Performed By: Candelario Klein RCS X-Ray 04/20/22 20:50 IMPRESSION: 1. Bilateral pleural effusions. 2. There is a feeding tube/ nasogastric tube noted. The tip is in the region of the stomach. KUB X-Ray 04/20/22 23:38 IMPRESSION: 1. NG tube extends into the proximal stomach and appears to be turns upon itself in the proximal stomach. 2. Normal bowel gas pattern. 3. Bibasilar atelectasis greater on the RIGHT than LEFT and RIGHT effusion suspected. Electronically Signed: Wale Dunn MD at 0:43 EST , Charges/Coding Visit Charges Inpatient E&M: 24700 Subs Hosp L3
--- NOTE | 2022-04-26 10:37 | PCM.PN.ID ---
Physical Exam Narrative Feeling ok, denies dyspnea, put on airvo this AM. Fever overnight. Const alert and no apparent distress Resp Auscultation: diminished lung sounds Cardio regular rate and regular rhythm GI soft to palpation, non-tender and non-distended Extremity General Extremity: Negative for edema Skin no rashes or lesions noted ID ID: Route of nutrition/ use of supplements: [] Nutritional Intake: [] IV Site: [] Banks Catheter: [] Assessment & Plan Assessment/Plan (1) Leukocytosis: (2) NAZANIN (acute kidney injury): (3) Fever: PLAN: Cxs neg so far. Concern for aspiration. Thoracentesis showed transudative fluid, cx neg, cytology pending. On zosyn. Abx started 04/20/22. Day 7 of abx. Now with fever again, worsened Cr, and put on airvo 60% this AM. Will order covid, sputum cx, BNP, procal. CXR with concern for mucus plugging, ? loculated pneumothorax. Pulm following. Will follow
[2022-04-26 11:07] LABS: BNP,B-Type NATRIURETIC PEPTIDE 520.4 pg/mL (0-100)
[2022-04-26 11:15] LABS: Procalcitonin 2.53 ng/mL (0.00-0.09)
--- NOTE | 2022-04-26 11:25 | CASEMGMT ---
ZINA received a call from Jose Martin with Hospice. She spoke with patient's son and he signed Hospice papers. He plans on patient going to [facility] private pay since there are no beds in the inpatient unit. ZINA called Rachael at [facility] and she said they could still take patient even if he is on Hospice. Rachael said their business broker usually calls family and talks finances and gets a down payment. However, she is on vacation until Friday. ZINA asked if there is anyone else that would be able to assist with this. Rachael will check with her victim witness administrator and let ZINA know. ZINA called patient's son Ric. ZINA let Ric know that [facility] could still take patient even if he is on Hospice. ZINA let Ric know that private rooms are $255 per day and semi-private rooms are $250 per day. [facility] currently does not have any private rooms available. ZINA also let Ric know that [facility] would want a down payment of some sort up front. Ric was in agreement. Teagan MORE
[2022-04-26 11:39] LABS: Pathologist Comment/Body Fluid Reviewed
--- NOTE | 2022-04-26 15:20 | CASEMGMT ---
ZINA spoke with Rachael at [facility] and she said their maximum O2 is 10L even for patient's on Hospice. ZINA let her know patient will likely be at [facility] through the weekend as his O2 requirements are significantly more than 10L. Rachael said as far as the financial aspect they are not worried about that right now. ZINA spoke with Ana and Jose Martin at [facility] and let them know the O2 limitations at [facility]. ZINA told them patient is still on airvo. ZINA told them there is a good chance patient will be at [facility] through the weekend. Ana said if a bed opens up over the weekend they will call PCU and arrangements can be made to transfer patient. ZINA notified physician and RN. ZINA will also update patient's son. Plan: Hospice. Patient can only be on 10L at [facility] even if Hospice is involved, this is unlikely. However, if that happens Hospice will need contacted so they can get O2 and a special mattress at [facility]. Also, if a bed opens up in the inpatient Hospice unit they will call PCU and patient can go there. Teagan MORE
[2022-04-26] MEDS: Atorvastatin Calcium 20 MG Tablet PO (21:30)
[2022-04-26] MEDS: dilTIAZem CD 120 MG Capsule PO (22:13)
[2022-04-26] MEDS: Acetaminophen 325 MG Tablet 650 MG PO (22:22)
[2022-04-27] VITALS (8 sets, daily range): BP systolic 95–107; BP diastolic 55–60; PULSE 70–90; RESP 20–31; TEMP 36.7–37.1; O2SAT 93–98
[2022-04-27] MEDS: Amiodarone 200 MG Tablet PO ×3 (05:45→20:23)
[2022-04-27] MEDS: Menthol/Lanolin/Calamine/Znox 113 GM Tube 1 APPLIC TOPICAL ×3 (05:46→20:23)
[2022-04-27 06:49] LABS: Anion Gap 12 (5-15); BUN 33 mg/dL (7-18); BUN/Creat Ratio 9.5 RATIO (10-20); Calcium,Total 7.3 mg/dL (8.5-10.1); Chloride 106 mmol/L (98-107); Creatinine, Serum 3.47 mg/dL (0.70-1.30); EST Glomerular Filtration Rate 18 mL/min (>60); Est Glom Filt Rate - Afr Amer 22 mL/min (>60); Glucose 100 mg/dL (74-106); Potassium 3.6 mmol/L (3.5-5.1); Sodium Level 141 mmol/L (136-145)
[2022-04-27 11:24] LABS: M R Staph aureus DNA By PCR Negative (Negative); Probe Check PASS; Specimen Processing Control PASS
[2022-04-27 12:47] LABS: Absolute Lymphocyte Count 0.46 X10^3/uL (0.83-4.51); Absolute Neutrophil Count 5.2 X10^3/uL (2.0-7.7); Basophil# 0.04 X10^3/uL; Basophil% 0.6 % (0-1); Eosinophil# 0.21 X10^3/uL; Eosinophils% 3.4 % (0-5); Hemoglobin 7.5 g/dL (13.0-16.5); Lymphocyte # 0.46 X10^3/ul (0.83-4.51); Lymphocyte % 7.5 % (19-41); Mean Corp Hgb Conc 31.3 g/dL (32-36); Mean Corpuscular Hgb 28.2 pg (27.0-32.0); Mean Corpuscular Volume 90.2 fL (80-94); Mean Platelet Vol. 10.4 fl (6.2-12.0); Monocyte# 0.25 X10^3/uL; Monocyte% 4.1 % (0-10); NRBC Flagged by Analyzer 0 % (0-5); Neutrophil # 5.16 X10^3/uL (2.7-7.7); Neutrophil % 83.8 % (47-70); POSITIVE DIFFERENTIAL YES; POSITIVE MORPHOLOGY YES; Platelet Count 123 K/mm3 (150-450); RBC Distribution Width CV 15.2 % (11.6-14.6); RBC Distribution Width SD 50.3 fl (35.1-43.9); Red Blood Count 2.66 M/mm3 (4.6-6.2); White Blood Count 6.2 K/mm3 (4.4-11.0)
[2022-04-27 12:53] LABS: Differential Indicated SCAN CRITERIA MET
[2022-04-27 13:10] LABS: Anisocytosis 1+; Platelet Estimate ADEQUATE (ADEQ); Polychromasia 1+
--- NOTE | 2022-04-27 14:12 | PN.HOSP_ITS ---
Subjective Subjective Follow-up for acute on chronic respiratory failure. Patient on Airvo. Decreased mentation. Hospice patient waiting for transfer to inpatient unit. Objective Data Objective Data Vital Signs: Vital Signs Temp Pulse Resp BP Pulse Ox O2 Del Method O2 Flow Rate 98.2 F 81 31 H 107/57 L 98 Airvo 40 04/27/22 08:00 04/27/22 08:00 04/27/22 08:00 04/27/22 08:00 04/27/22 08:00 04/27/22 08:00 04/27/22 08:00 FiO2 50 04/27/22 07:00 Oxygen Flow Rate (L/min) [5] 4 Oxygen Flow Rate (L/min) [4] 4 Oxygen Flow Rate (L/min) [3] 4 Oxygen Flow Rate (L/min) [1 ( 4 Initial Baseline)] Oxygen Flow Rate (L/min) 40 Oxygen Delivery Method [5] Nasal Cannula Oxygen Delivery Method [4] Nasal Cannula Oxygen Delivery Method [3] Nasal Cannula Oxygen Delivery Method [2] Room Air Oxygen Delivery Method [1 ( Nasal Cannula Initial Baseline)] Oxygen Delivery Method Airvo Weight: 150 lb Body Mass Index (BMI) 22.1 Intake & Output: Intake and Output for Last 24 Hours 04/25/22 04/26/22 04/27/22 23:59 23:59 23:59 Intake Total 1620.70 / 1620.70 290 / 290 100 / 100 Output Total 2850 / 2850 550 / 550 175 / 175 Balance -1229.30 / -1229.30 -260 / -260 -75 / -75 Lab / Micro Data Result Diagrams: 04/27/22 12:40 04/27/22 06:07 Labs: Laboratory Results - last 24 hr 04/27/22 06:07: Sodium 141, Potassium 3.6, Chloride 106, Carbon Dioxide 23.0, Anion Gap 12, BUN 33 H, Creatinine 3.47 H, Estim Creat Clear Calc 17.70, Est GFR (MDRD) Af Amer 22 L, Est GFR (MDRD) Non-Af 18 L, BUN/Creatinine Ratio 9.5 L, Glucose 100, Calcium 7.3 L 04/27/22 07:12: COVID-19 (MANJIT) Not Detected 04/27/22 08:06: MRSA (PCR) Negative 04/27/22 12:40: WBC 6.2, RBC 2.66 L, Hgb 7.5 L, Hct 24.0 L, MCV 90.2, MCH 28.2, MCHC 31.3 L, RDW Std Deviation 50.3 H, RDW Coeff of Yemi 15.2 H, Plt Count 123 L, MPV 10.4, Immature Gran % (Auto) 0.600, Neut % (Auto) 83.8 H, Lymph % (Auto) 7.5 L, [place] % (Auto) 4.1, Eos % (Auto) 3.4, Baso % (Auto) 0.6, Absolute Neuts (auto) 5.2, Absolute Lymphs (auto) 0.46 L, Nucleated RBC % 0, Platelet Estimate ADEQUATE, Polychromasia 1+, Anisocytosis 1+ Micro: Microbiology 04/27/22 07:50 Mucosa - Nose Respiratory Panel (PCR) - Final 04/24/22 12:15 Blood Culture (Wb) - Anticubital Left Blood Culture - Preliminary No growth in 48 hours. 04/24/22 12:05 Blood Culture (Wb) - Right Hand Blood Culture - Preliminary No growth in 48 hours. 04/24/22 12:40 Urine Catheter - Banks Urine Culture - Final Culture exhibits no growth. 04/24/22 15:08 Fluid - Thoracentesis Fluid Gram Stain - Final 04/24/22 15:08 Fluid - Thoracentesis Fluid Body Fluid Culture - Final Culture exhibits no growth. 04/18/22 04:32 Blood Culture (Wb) - Anticubital Left Blood Culture - Final No growth in 5 days. 04/18/22 04:46 Blood Culture (Wb) - Left Hand Blood Culture - Final No growth in 5 days. 04/18/22 02:20 Urine, Clean Catch Urine Culture - Final Mixed Gram Positive Organisms 04/20/22 20:55 Stool Stool Occult Blood (XI) - Final Occult Blood Positive 04/20/22 15:35 Stool Stool Occult Blood (XI) - Final 04/18/22 22:55 Nasal Secretion SARS-CoV-2 Antigen (Rapid) - Final 04/18/22 01:10 Nasal Secretion SARS-CoV-2 & FLU Antigen (Rapid) - Final Physical Exam Narrative Patient on Airvo 50% FiO2 , 40-minute appointment. BP 107/58. Still tac hypneic. No fever overnight. Physical exam General: Lethargic, mild respiratory distress, incomprehensible. Disoriented. HEENT: Atraumatic, PERRLA, EOMI, Normocephalic Oral: Oral mucosa dry. On Airvo. Neck: Supple, No JVD, Negative Carotid Bruits Lungs: Air entry diminished in bilateral lung bases, air entry improved status post right thoracocentesis. No crepitations. Tachypneic and hypoxic. Cardiovascular: sinus rhythm. Regular rate, Regular Rhythm, Normal S1, Normal S2, No murmurs Abdomen: Bowel Sounds sluggish, Soft, Non Tender, Non-Distended : No renal angle tenderness. No suprapubic tenderness. Extremities: Mild bilateral ankle edema, Capillary Refill Less than 3 Seconds Skin: No rashes, No breakdown Musculoskeletal: No Tenderness to Palpation of Joints or Extremities, ROM restricted. Weakness lower extremities chronic, 4/5. Not able to lift legs spontaneously. Neurological: Cranial nerves II-XII grossly intact, DTR 2+/4. Psych/Mental Status: Flat affect. Assessment & Plan Assessment/Plan (1) Hematemesis of unknown cause: PLAN: Plan 76-year-old gentleman with history of malignant lung nodule status postresection was admitted with 2-week history of progressively worsening shortness of breath on exertion, generalized weakness, unable to get up. In ED he was found to be in NAZANIN and other multiple issues. 1. NAZANIN exact etiology unclear possible prerenal ? Initially renal function worsened. ? He is intermittently febrile however blood cultures are negative, CT of the chest was negative for pneumonia. Urine culture is as mixed ember ? Continue with PPI appreciate general surgery consult, will repeat an H&H when he is back to the floor, completed 2 units of PRBCs ? Has been COVID tested twice which are negative. ? Unsure as to the pathology of his nodule but he did have a lung resection at [facility] in [place] on 08/30/2021. ? Continue with PT/OT for possible placement ? We will try to obtain a stool guaiac to evaluate for any blood loss, as he converted to normal sinus rhythm and his echo that demonstrated normal left atrium, will discontinue his therapeutic Lovenox, this was likely a reaction to his illness ? Iron studies show an elevated ferritin consistent with inflammation 04/22: BUN/creatinine 41/1.76. K3.5.Mild improvement in creatinine. 04/23: Further improvement in creatinine 1.57. 04/24: Creatinine 1.39. BUN 21. Electrolytes in normal limit. Anion gap 7. 04/25: Urine output about 2.8 L. Patient still has Banks catheter. 04/27: Creatinine 3.47. Urine output documented 550 mill yesterday. Decreasing urine output as compared to day before yesterday. Increasing BUN/creatinine. Patient had urine retention couple days ago therefore Banks catheter was reinserted. Acute hypoxic respiratory failure since admission: ABG shows 7.4/PCO2 32.5 PO2 80 on 4 L of oxygen. Advised air fall and pulmonary consult requested. Bronchodilator as needed. Chest CT shows bilateral pleural effusion more on the right side. Thoracocentesis ordered. Repeat chest x-ray consistent with CHF and bibasilar atelectasis and infiltrate worse on the left side. Patient is tachypneic with respiratory 24, labored breathing using chest wall muscles. 04/25: Patient respiratory status better after thoracocentesis. Patient had 400 mmHg thoracocentesis on 04/24. Prelim pleural fluid culture shows no growth but full result pending. Cytology and pathologist comment pending. Patient has a history of lung cancer. Pleural fluid analysis consistent with transudate with 97% lymphocytes concerning for malignancy. Patient has diagnosis of lung cancer and had resection in [facility] in August 2021. Details of pathology unavailable. 04/26: Patient found in respiratory distress tachypneic and hypoxic in the morning. Repeat chest x-ray in the morning shows increased atelectasis in right lung base with volume loss, localized lucency at right lung base, exact etiology unclear. Possibility of loculated pneumothorax after recent right trigger synthesis. No change in the small pleural effusion. Earlier, patient was on nonrebreather. Respiratory therapist called and put on Airvo. I called the son and he is agreeable for palliative/hospice consult. Hospice consult called. Family meeting in less than 1 hour about 11 AM. Currently inpatient hospice service does not have bed therefore patient will stay over the weekend. 04/27 no change patient remains on Airvo 2. Acute anemia from upper GI bleed loss: Discussed with the general surgeon. Hemoglobin is 8.2. Platelet count normal. Patient had large-volume hematemesis and EGD was done which showed visible vessel with an ulcer in distal esophagus. No varices. Patient also had fever for which patient started on Unasyn and iron supplement.. 04/23: Hemoglobin improved to 8.1. Continue Protonix. 04/24: Hemoglobin 8.7. 04/26: Hemoglobin 8.1. 3. Probability of aspiration/aspiration pneumonia and bilateral pleural effusion: Patient developed fever and leukocytosis. On Unasyn. Chest CTA shows pleural effusion bilateral, more on the right side with moderate pericardial effusion. Shows reactive adenopathy. 2D echo EF 55% no significant valvular a bnormality with normal diastole and no pericardial effusion. 04/24: Patient having spikes of fever. Blood cultures x2, urine culture and UA ordered. IV Unasyn changed to Zosyn. ID consulted. 04/25: ID consult and follow-up reviewed. On antibiotic for possible total 7 days of treatment 04/27: Repeat culture did not show any organism. Blood cultures x2 negative for 48 hours, respiratory panel negative. COVID-19 PCR negative. Urine culture no growth. I will discontinue the antibiotics as he had more than 7 days of antibiotics. 4. New onset A. fib, hypertension and dyslipidemia: ? EF on the echo was normal as mentioned above. ? He did convert to normal sinus rhythm with the addition of p.o. metoprolol to his Cardizem drip, continue with metoprolol 25 mg p.o. twice daily as well as Cardizem 240 mg daily ? Continue with Lipitor 04/24: Patient medical A. fib with RVR. Metoprolol 5 mg IV ordered. If heart rate does not get better we will try digoxin 0.5 mg IV. 04/27: Heart rate is controlled currently in sinus rhythm 5. Acute on chronic HFpEF with bilateral pleural effusion: Patient is also chronically short of breath with bilateral pleural effusion from acute on chronic HFpEF. Patient has not required BiPAP for 3 days. He will need to be put on diuretic as per tolerated by hemodynamics but currently his pressure is low. Prescription given for Lasix 20 mg daily with holding parameters. 04/24: Patient not able to be dialyzed because of low blood pressure and acute kidney injury. On Lasix 20 mg DVT: SCDs. Total time of the visit including total time spent in counseling or coordination of care, (more than 50% of the total time, spent in obtaining medical information from nurses and other ancillary care providers,explaining to the patient about labs, imaging, diagnosis and management of active complex medical conditions), information systems consultant turner and former automatic, ID, hospice discussion with patient's son, review of labs and imaging is 60 minutes Microbiology Past 72 Hours 04/27/22 07:50 Mucosa - Nose Respiratory Panel (PCR) - Final 04/24/22 12:15 Blood Culture (Wb) - Anticubital Left Blood Culture - Preliminary No growth in 48 hours. 04/24/22 12:05 Blood Culture (Wb) - Right Hand Blood Culture - Preliminary No growth in 48 hours. 04/24/22 12:40 Urine Catheter - Banks Urine Culture - Final Culture exhibits no growth. 04/24/22 15:08 Fluid - Thoracentesis Fluid Gram Stain - Final 04/24/22 15:08 Fluid - Thoracentesis Fluid Body Fluid Culture - Final Culture exhibits no growth. Laboratory Results 04/27/22 06:07: Sodium 141, Potassium 3.6, Chloride 106, Carbon Dioxide 23.0, Anion Gap 12, BUN 33 H, Creatinine 3.47 H, Estim Creat Clear Calc 17.70, Est GFR (MDRD) Af Amer 22 L, Est GFR (MDRD) Non-Af 18 L, BUN/Creatinine Ratio 9.5 L, Glucose 100, Calcium 7.3 L 04/27/22 07:12: COVID-19 (MANJIT) Not Detected 04/27/22 08:06: MRSA (PCR) Negative 04/27/22 12:40: WBC 6.2, RBC 2.66 L, Hgb 7.5 L, Hct 24.0 L, MCV 90.2, MCH 28.2, MCHC 31.3 L, RDW Std Deviation 50.3 H, RDW Coeff of Yemi 15.2 H, Plt Count 123 L, MPV 10.4, Immature Gran % (Auto) 0.600, Neut % (Auto) 83.8 H, Lymph % (Auto) 7.5 L, [place] % (Auto) 4.1, Eos % (Auto) 3.4, Baso % (Auto) 0.6, Absolute Neuts (auto) 5.2, Absolute Lymphs (auto) 0.46 L, Nucleated RBC % 0, Platelet Estimate ADEQUATE, Polychromasia 1+, Anisocytosis 1+ Clinical Impression(s) from Imaging Studies Chest CTA 04/18/22 01:30 IMPRESSION: 1. Bilateral pleural effusions with reactive adenopathy. 2. No PE. 3. Moderate-size pericardial effusion. Electronically Signed: Ankit Moyer MD at 3:33 EST , Renal Ultrasound 04/18/22 05:27 IMPRESSION: 1. Mild right hydronephrosis. 2. 5 cm exophytic cyst of the left kidney. Electronically Signed: Wale Woodruff MD at 12:29 EST , Echocardiogram 04/18/22 05:55 Interpretation Summary The estimated ejection fraction is 55 %. No significant valvular abnormalities Ordering Physician: Shaun Landry Performed By: Candelario Klein RCS X-Ray 04/20/22 20:50 IMPRESSION: 1. Bilateral pleural effusions. 2. There is a feeding tube/ nasogastric tube noted. The tip is in the region of the stomach. KUB X-Ray 04/20/22 23:38 IMPRESSION: 1. NG tube extends into the proximal stomach and appears to be turns upon itself in the proximal stomach. 2. Normal bowel gas pattern. 3. Bibasilar atelectasis greater on the RIGHT than LEFT and RIGHT effusion suspected. Electronically Signed: Wale Dunn MD at 0:43 EST , Charges/Coding Visit Charges Inpatient E&M: 96131 Subs Hosp L3
[2022-04-27] MEDS: Pantoprazole Sodium 40 MG Tablet PO (20:23)
[2022-04-27] MEDS: Atorvastatin Calcium 20 MG Tablet PO (20:23)
[2022-04-28] VITALS (13 sets, daily range): BP systolic 102–116; BP diastolic 48–62; PULSE 67–125; RESP 22–30; TEMP 36.7–37; O2SAT 79–99
[2022-04-28] MEDS: Metoprolol Tartrate 50 MG Tablet PO ×2 (00:49→12:12)
[2022-04-28] MEDS: Amiodarone 200 MG Tablet PO ×2 (06:01→14:56)
[2022-04-28] MEDS: Menthol/Lanolin/Calamine/Znox 113 GM Tube 1 APPLIC TOPICAL ×3 (06:01→22:34)
[2022-04-28 07:33] LABS: Absolute Lymphocyte Count 0.62 X10^3/uL (0.83-4.51); Absolute Neutrophil Count 5.3 X10^3/uL (2.0-7.7); Basophil# 0.04 X10^3/uL; Basophil% 0.6 % (0-1); Eosinophil# 0.34 X10^3/uL; Eosinophils% 5.2 % (0-5); Hematocrit 24.1 % (40-54); Hemoglobin 7.5 g/dL (13.0-16.5); Lymphocyte # 0.62 X10^3/ul (0.83-4.51); Lymphocyte % 9.5 % (19-41); Mean Corp Hgb Conc 31.1 g/dL (32-36); Mean Corpuscular Hgb 28.3 pg (27.0-32.0); Mean Corpuscular Volume 90.9 fL (80-94); Mean Platelet Vol. 10.5 fl (6.2-12.0); Monocyte# 0.19 X10^3/uL; Monocyte% 2.9 % (0-10); NRBC Flagged by Analyzer 0.3 % (0-5); Neutrophil # 5.26 X10^3/uL (2.7-7.7); POSITIVE MORPHOLOGY YES; Platelet Count 110 K/mm3 (150-450); RBC Distribution Width CV 15.2 % (11.6-14.6); RBC Distribution Width SD 50.8 fl (35.1-43.9); Red Blood Count 2.65 M/mm3 (4.6-6.2); White Blood Count 6.5 K/mm3 (4.4-11.0)
[2022-04-28 07:52] LABS: Differential Indicated SCAN CRITERIA MET
[2022-04-28 07:59] LABS: Anion Gap 8 (5-15); BUN 40 mg/dL (7-18); BUN/Creat Ratio 8.4 RATIO (10-20); Calcium,Total 7.4 mg/dL (8.5-10.1); Chloride 104 mmol/L (98-107); Creatinine, Serum 4.78 mg/dL (0.70-1.30); EST Glomerular Filtration Rate 13 mL/min (>60); Est Glom Filt Rate - Afr Amer 15 mL/min (>60); Estimated Creatinine Clearance 12.85 ml/min; Glucose 109 mg/dL (74-106); Sodium Level 138 mmol/L (136-145)
[2022-04-28 09:55] LABS: Differential Comment SCANNED
--- NOTE | 2022-04-28 11:18 | PN.HOSP_ITS ---
Subjective Subjective Patient is under hospice care. Awaiting bed. Overall feels shortness of breath better on Airvo. Not significant improvement. No fever in 48 hours Objective Data Objective Data Vital Signs: Vital Signs Temp Pulse Resp BP Pulse Ox O2 Del Method O2 Flow Rate 98.2 F 69 30 H 102/57 L 97 Airvo 40 04/28/22 07:52 04/28/22 07:52 04/28/22 07:52 04/28/22 07:52 04/28/22 08:00 04/28/22 08:00 04/28/22 08:00 FiO2 45 04/28/22 08:00 Oxygen Flow Rate (L/min) [5] 4 Oxygen Flow Rate (L/min) [4] 4 Oxygen Flow Rate (L/min) [3] 4 Oxygen Flow Rate (L/min) [1 ( 4 Initial Baseline)] Oxygen Flow Rate (L/min) 40 Oxygen Delivery Method [5] Nasal Cannula Oxygen Delivery Method [4] Nasal Cannula Oxygen Delivery Method [3] Nasal Cannula Oxygen Delivery Method [2] Room Air Oxygen Delivery Method [1 ( Nasal Cannula Initial Baseline)] Oxygen Delivery Method Airvo Weight: 150 lb Body Mass Index (BMI) 22.1 Intake & Output: Intake and Output for Last 24 Hours 04/26/22 04/27/22 04/28/22 23:59 23:59 23:59 Intake Total 290 / 290 126.04 / 126.04 250 / 250 Output Total 550 / 550 175 / 175 100 / 100 Balance -260 / -260 -48.96 / -48.96 150 / 150 Lab / Micro Data Result Diagrams: 04/28/22 06:35 04/28/22 06:35 Labs: Laboratory Results - last 24 hr 04/27/22 07:12: COVID-19 (MANJIT) Not Detected 04/27/22 08:06: MRSA (PCR) Negative 04/27/22 12:40: WBC 6.2, RBC 2.66 L, Hgb 7.5 L, Hct 24.0 L, MCV 90.2, MCH 28.2, MCHC 31.3 L, RDW Std Deviation 50.3 H, RDW Coeff of Yemi 15.2 H, Plt Count 123 L, MPV 10.4, Immature Gran % (Auto) 0.600, Neut % (Auto) 83.8 H, Lymph % (Auto) 7.5 L, [place] % (Auto) 4.1, Eos % (Auto) 3.4, Baso % (Auto) 0.6, Absolute Neuts (auto) 5.2, Absolute Lymphs (auto) 0.46 L, Nucleated RBC % 0, Platelet Estimate ADEQUATE, Polychromasia 1+, Anisocytosis 1+ 04/28/22 06:35: WBC 6.5, RBC 2.65 L, Hgb 7.5 L, Hct 24.1 L, MCV 90.9, MCH 28.3, MCHC 31.1 L, RDW Std Deviation 50.8 H, RDW Coeff of Yemi 15.2 H, Plt Count 110 L, MPV 10.5, Immature Gran % (Auto) 0.800, Neut % (Auto) 81.0 H, Lymph % (Auto) 9.5 L, [place] % (Auto) 2.9, Eos % (Auto) 5.2 H, Baso % (Auto) 0.6, Absolute Neuts (auto) 5.3, Absolute Lymphs (auto) 0.62 L, Nucleated RBC % 0.3, Differential Comment SCANNED 04/28/22 06:35: Sodium 138, Potassium 3.0 L, Chloride 104, Carbon Dioxide 26.0, Anion Gap 8, BUN 40 H, Creatinine 4.78 H, Estim Creat Clear Calc 12.85, Est GFR (MDRD) Af Amer 15 L, Est GFR (MDRD) Non-Af 13 L, BUN/Creatinine Ratio 8.4 L, Glucose 109 H, Calcium 7.4 L Micro: Microbiology 04/24/22 15:08 Fluid - Thoracentesis Fluid Gram Stain - Final 04/24/22 15:08 Fluid - Thoracentesis Fluid Body Fluid Culture - Final Culture exhibits no growth. 04/24/22 15:08 Fluid - Thoracentesis Fluid Anaerobic Culture - Preliminary No growth in 48 hours. 04/27/22 07:50 Mucosa - Nose Respiratory Panel (PCR) - Final 04/24/22 12:15 Blood Culture (Wb) - Anticubital Left Blood Culture - Preliminary No growth in 48 hours. 04/24/22 12:05 Blood Culture (Wb) - Right Hand Blood Culture - Preliminary No growth in 48 hours. 04/24/22 12:40 Urine Catheter - Banks Urine Culture - Final Culture exhibits no growth. 04/18/22 04:32 Blood Culture (Wb) - Anticubital Left Blood Culture - Final No growth in 5 days. 04/18/22 04:46 Blood Culture (Wb) - Left Hand Blood Culture - Final No growth in 5 days. 04/18/22 02:20 Urine, Clean Catch Urine Culture - Final Mixed Gram Positive Organisms 04/20/22 20:55 Stool Stool Occult Blood (XI) - Final Occult Blood Positive 04/20/22 15:35 Stool Stool Occult Blood (XI) - Final 04/18/22 22:55 Nasal Secretion SARS-CoV-2 Antigen (Rapid) - Final 04/18/22 01:10 Nasal Secretion SARS-CoV-2 & FLU Antigen (Rapid) - Final Physical Exam Narrative Patient on Airvo. Afebrile. Tachypnea has improved. In the morning heart rate was in 50s not tachycardic Physical exam General: Lethargic, mild respiratory distress, incomprehensible. Disoriented. HEENT: Atraumatic, PERRLA, EOMI, Normocephalic Oral: Oral mucosa dry. On Airvo. Neck: Supple, No JVD, Negative Carotid Bruits Lungs: Air entry diminished in bilateral lung bases, air entry improved status post right thoracocentesis. No crepitations. On air Vo. Cardiovascular: sinus rhythm. Regular rate, Regular Rhythm, Normal S1, Normal S2, No murmurs Abdomen: Bowel Sounds sluggish, Soft, Non Tender, Non-Distended : No renal angle tenderness. No suprapubic tenderness. Extremities: Mild bilateral ankle edema, Capillary Refill Less than 3 Seconds Skin: No rashes, No breakdown Musculoskeletal: No Tenderness to Palpation of Joints or Extremities, ROM restricted. Weakness lower extremities chronic, 4/5. Not able to lift legs spontaneously. Neurological: Cranial nerves II-XII grossly intact, DTR 2+/4. Psych/Mental Status: Flat affect. Assessment & Plan Assessment/Plan (1) Hematemesis of unknown cause: PLAN: Plan 76-year-old gentleman with history of malignant lung nodule status postresection was admitted with 2-week history of progressively worsening shortness of breath on exertion, generalized weakness, unable to get up. In ED he was found to be in NAZANIN and other multiple issues. 1. NAZANIN exact etiology unclear possible prerenal ? Initially renal function worsened. ? He is intermittently febrile however blood cultures are negative, CT of the chest was negative for pneumonia. Urine culture is as mixed ember ? Continue with PPI appreciate general surgery consult, will repeat an H&H when he is back to the floor, completed 2 units of PRBCs ? Has been COVID tested twice which are negative. ? Unsure as to the pathology of his nodule but he did have a lung resection at [facility] in [place] on 08/30/2021. ? Continue with PT/OT for possible placement ? We will try to obtain a stool guaiac to evaluate for any blood loss, as he converted to normal sinus rhythm and his echo that demonstrated normal left atrium, will discontinue his therapeutic Lovenox, this was likely a reaction to his illness ? Iron studies show an elevated ferritin consistent with inflammation 04/22: BUN/creatinine 41/1.76. K3.5.Mild improvement in creatinine. 04/23: Further improvement in creatinine 1.57. 04/24: Creatinine 1.39. BUN 21. Electrolytes in normal limit. Anion gap 7. 04/25: Urine output about 2.8 L. Patient still has Banks catheter. 04/27: Creatinine 3.47. Urine output documented 550 mill yesterday. Decreasing urine output as compared to day before yesterday. Increasing BUN/creatinine. Patient had urine retention couple days ago therefore Banks catheter was reinserted. 04/28: BUN/creatinine went up high again. 4.78. Patient is hospice care. Labs discontinued. Initially it improved and then getting worse. Acute hypoxic respiratory failure since admission: ABG shows 7.4/PCO2 32.5 PO2 80 on 4 L of oxygen. Advised air fall and pulmonary consult requested. Bronchodilator as needed. Chest CT shows bilateral pleural effusion more on the right side. Thoracocentesis ordered. Repeat chest x-ray consistent with CHF and bibasilar atelectasis and infiltrate worse on the left side. Patient is tachypneic with respiratory 24, labored breathing using chest wall muscles. 04/25: Patient respiratory status better after thoracocentesis. Patient had 400 mmHg thoracocentesis on 04/24. Prelim pleural fluid culture shows no growth but full result pending. Cytology and pathologist comment pending. Patient has a history of lung cancer. Pleural fluid analysis consistent with transudate with 97% lymphocytes concerning for malignancy. Patient has diagnosis of lung cancer and had resection in [facility] in August 2021. Details of pathology unavailable. 04/26: Patient found in respiratory distress tachypneic and hypoxic in the morning. Repeat chest x-ray in the morning shows increased atelectasis in right lung base with volume loss, localized lucency at right lung base, exact etiology unclear. Possibility of loculated pneumothorax after recent right trigger synthesis. No change in the small pleural effusion. Earlier, patient was on nonrebreather. Respiratory therapist called and put on Airvo. I called the son and he is agreeable for palliative/hospice consult. Hospice consult called. Family meeting in less than 1 hour about 11 AM. Currently inpatient hospice service does not have bed therefore patient will stay over the weekend. 04/27 no change patient remains on Airvo 04/28: Subjectively feels improvement in dyspnea. 2. Acute anemia from upper GI bleed loss: Discussed with the general surgeon. Hemoglobin is 8.2. Platelet count normal. Patient had large-volume hematemesis and EGD was done which showed visible vessel with an ulcer in distal esophagus. No varices. Patient also had fever for which patient started on Unasyn and iron supplement.. 04/23: Hemoglobin improved to 8.1. Continue Protonix. 04/24: Hemoglobin 8.7. 04/26: Hemoglobin 8.1. 3. Probability of aspiration/aspiration pneumonia and bilateral pleural effusion: Patient developed fever and leukocytosis. On Unasyn. Chest CTA shows pleural effusion bilateral, more on the right side with moderate pericardial effusion. Shows reactive adenopathy. 2D echo EF 55% no significant valvular abnormality with normal diastole and no pericardial effusion. 04/24: Patient having spikes of fever. Blood cultures x2, urine culture and UA ordered. IV Unasyn changed to Zosyn. ID consulted. 04/25: ID consult and follow-up reviewed. On antibiotic for possible total 7 days of treatment 04/27: Repeat culture did not show any organism. Blood cultures x2 negative for 48 hours, respiratory panel negative. COVID-19 PCR negative. Urine culture no growth. I will discontinue the antibiotics as he had more than 7 days of antibiotics. 4. New onset A. fib, hypertension and dyslipidemia: ? EF on the echo was normal as mentioned above. ? He did convert to normal sinus rhythm with the addition of p.o. metoprolol to his Cardizem drip, continue with metoprolol 25 mg p.o. twice daily as well as Cardizem 240 mg daily ? Continue with Lipitor 04/24: Patient medical A. fib with RVR. Metoprolol 5 mg IV ordered. If heart rate does not get better we will try digoxin 0.5 mg IV. 04/27: Heart rate is controlled currently in sinus rhythm 04/28: Metoprolol dose increased to 75 mg twice daily daily. Extra metoprolol 1 dose 25 mg ordered 5. Acute on chronic HFpEF with bilateral pleural effusion: Patient is also chronically short of breath with bilateral pleural effusion from acute on chronic HFpEF. Patient has not required BiPAP for 3 days. He will need to be put on diuretic as per tolerated by hemodynamics but currently his pressure is low. Prescription given for Lasix 20 mg daily with holding parameters. 04/24: Patient not able to be dialyzed because of low blood pressure and acute kidney injury. On Lasix 20 mg DVT: SCDs. Disposition: Discharge to inpatient hospice care once bed available. Clinical Impression(s) from Imaging Studies Chest CTA 04/18/22 01:30 IMPRESSION: 1. Bilateral pleural effusions with reactive adenopathy. 2. No PE. 3. Moderate-size pericardial effusion. Electronically Signed: Ankit Moyer MD at 3:33 EST , Renal Ultrasound 04/18/22 05:27 IMPRESSION: 1. Mild right hydronephrosis. 2. 5 cm exophytic cyst of the left kidney. Electronically Signed: Wale Woodruff MD at 12:29 EST , Echocardiogram 04/18/22 05:55 Interpretation Summary The estimated ejection fraction is 55 %. No significant valvular abnormalities Ordering Physician: Shaun Landry Performed By: Candelario Klein RCS X-Ray 04/20/22 20:50 IMPRESSION: 1. Bilateral pleural effusions. 2. There is a feeding tube/ nasogastric tube noted. The tip is in the region of the stomach. KUB X-Ray 04/20/22 23:38 IMPRESSION: 1. NG tube extends into the proximal stomach and appears to be turns upon itself in the proximal stomach. 2. Normal bowel gas pattern. 3. Bibasilar atelectasis greater on the RIGHT than LEFT and RIGHT effusion suspected. Electronically Signed: Wale Dunn MD at 0:43 EST , Charges/Coding Visit Charges Inpatient E&M: 14987 Subs Hosp L2
[2022-04-28] MEDS: Metoprolol Tartrate 25 MG Tablet PO (12:12)
[2022-04-28] MEDS: Ipratropium/Albuterol Sulfate 3 ML AMPUL.NEB INHALATION (20:34)
[2022-04-28] MEDS: Budesonide Respules 0.5 MG/2 ML AMPUL.NEB. INHALATION (20:35)
[2022-04-29] MEDS: Menthol/Lanolin/Calamine/Znox 113 GM Tube 1 APPLIC TOPICAL (04:52)
[2022-04-29 07:05] VITALS: PULSE 77; RESP 20; O2SAT 95
[2022-04-29] MEDS: Ipratropium/Albuterol Sulfate 3 ML AMPUL.NEB INHALATION ×2 (07:09→12:27)
[2022-04-29] MEDS: Budesonide Respules 0.5 MG/2 ML AMPUL.NEB. INHALATION (07:09)
[2022-04-29 07:10] VITALS: PULSE 71; RESP 19
[2022-04-29 07:40] VITALS: O2SAT 95
[2022-04-29 07:41] VITALS: BP 109/59; PULSE 77; RESP 22; TEMP 36.7; O2SAT 96
--- NOTE | 2022-04-29 09:03 | PN.HOSP_ITS ---
Subjective Subjective On Airvo. Patient opens his eyes but does not communicate. Objective Data Objective Data Vital Signs: Vital Signs Temp Pulse Resp BP Pulse Ox O2 Del Method O2 Flow Rate 36.7 C 77 22 H 109/59 L 96 Airvo 35 04/29/22 07:41 04/29/22 07:41 04/29/22 07:41 04/29/22 07:41 04/29/22 07:41 04/29/22 07:41 04/29/22 07:41 FiO2 48 04/29/22 07:41 Oxygen Flow Rate (L/min) [5] 4 Oxygen Flow Rate (L/min) [4] 4 Oxygen Flow Rate (L/min) [3] 4 Oxygen Flow Rate (L/min) [1 ( 4 Initial Baseline)] Oxygen Flow Rate (L/min) 35 Oxygen Delivery Method [5] Nasal Cannula Oxygen Delivery Method [4] Nasal Cannula Oxygen Delivery Method [3] Nasal Cannula Oxygen Delivery Method [2] Room Air Oxygen Delivery Method [1 ( Nasal Cannula Initial Baseline)] Oxygen Delivery Method Airvo Weight: 68.039 kg Body Mass Index (BMI) 22.1 Intake & Output: Intake and Output for Last 24 Hours 04/27/22 04/28/22 04/29/22 23:59 23:59 23:59 Intake Total 126.04 / 126.04 250 / 250 Output Total 175 / 175 205 / 205 Balance -48.96 / -48.96 45 / 45 Lab / Micro Data Result Diagrams: 04/28/22 06:35 04/28/22 06:35 Labs: Laboratory Results - last 24 hr 04/28/22 06:35: Differential Comment SCANNED Micro: Microbiology 04/24/22 15:08 Fluid - Thoracentesis Fluid Gram Stain - Final 04/24/22 15:08 Fluid - Thoracentesis Fluid Body Fluid Culture - Final Culture exhibits no growth. 04/24/22 15:08 Fluid - Thoracentesis Fluid Anaerobic Culture - Preliminary No growth in 48 hours. 04/27/22 07:50 Mucosa - Nose Respiratory Panel (PCR) - Final 04/24/22 12:15 Blood Culture (Wb) - Anticubital Left Blood Culture - Preliminary No growth in 48 hours. 04/24/22 12:05 Blood Culture (Wb) - Right Hand Blood Culture - Preliminary No growth in 48 hours. 04/24/22 12:40 Urine Catheter - Banks Urine Culture - Final Culture exhibits no growth. 04/18/22 04:32 Blood Culture (Wb) - Anticubital Left Blood Culture - Final No growth in 5 days. 04/18/22 04:46 Blood Culture (Wb) - Left Hand Blood Culture - Final No growth in 5 days. 04/18/22 02:20 Urine, Clean Catch Urine Culture - Final Mixed Gram Positive Organisms 04/20/22 20:55 Stool Stool Occult Blood (XI) - Final Occult Blood Positive 04/20/22 15:35 Stool Stool Occult Blood (XI) - Final 04/18/22 22:55 Nasal Secretion SARS-CoV-2 Antigen (Rapid) - Final 04/18/22 01:10 Nasal Secretion SARS-CoV-2 & FLU Antigen (Rapid) - Final Physical Exam Const Constitutional Narrative: Listless. Afebrile. Opens eyes to voice. Resp Resp Narrative: Coarse breath sounds bilaterally Cardio regular rate, regular rhythm, S1 normal heart sound and S2 normal heart sound Assessment & Plan Assessment/Plan (1) Hematemesis of unknown cause: (2) NAZANIN (acute kidney injury): (3) Aspiration pneumonia: (4) Atrial fibrillation: PLAN: Plan 1. NAZANIN exact etiology unclear possible prerenal ? Initially renal function worsened. ? He is intermittently febrile however blood cultures are negative, CT of the chest was negative for pneumonia. Urine culture is as mixed ember ? Continue with PPI appreciate general surgery consult, will repeat an H&H when he is back to the floor, completed 2 units of PRBCs ? Has been COVID tested twice which are negative. ? Unsure as to the pathology of his nodule but he did have a lung resection at [facility] in [place] on 08/30/2021. ? Continue with PT/OT for possible placement ? We will try to obtain a stool guaiac to evaluate for any blood loss, as he converted to normal sinus rhythm and his echo that demonstrated normal left atrium, will discontinue his therapeutic Lovenox, this was likely a reaction to his illness ? Iron studies show an elevated ferritin consistent with inflammation 04/22: BUN/creatinine 41/1.76. K3.5.Mild improvement in creatinine. 04/23: Further improvement in creatinine 1.57. 04/24: Creatinine 1.39. BUN 21. Electrolytes in normal limit. Anion gap 7. 04/25: Urine output about 2.8 L. Patient still has Banks catheter. 04/27: Creatinine 3.47. Urine output documented 550 mill yesterday. Decreasing urine output as compared to day before yesterday. Increasing BUN/creatinine. Patient had urine retention couple days ago therefore Banks catheter was reinserted. 04/28: BUN/creatinine went up high again. 4.78. Patient is hospice care. Labs discontinued. Initially it improved and then getting worse. Acute hypoxic respiratory failure since admission: ABG shows 7.4/PCO2 32.5 PO2 80 on 4 L of oxygen. Advised air fall and pulmonary consult requested. Bronchodilator as needed. Chest CT shows bilateral pleural effusion more on the right side. Thoracocentesis ordered. Repeat chest x-ray consistent with CHF and bibasilar atelectasis and infiltrate worse on the left side. Patient is tachypneic with respiratory 24, labored breathing using chest wall muscles. 04/25: Patient respiratory status better after thoracocentesis. Patient had 400 mmHg thoracocentesis on 04/24. Prelim pleural fluid culture shows no growth but full result pending. Cytology and pathologist comment pending. Patient has a history of lung cancer. Pleural fluid analysis consistent with transudate with 97% lymphocytes concerning for malignancy. Patient has diagnosis of lung cancer and had resection in [facility] in August 2021. Details of pathology unavailable. 04/26: Patient found in respiratory distress tachypneic and hypoxic in the morning. Repeat chest x-ray in the morning shows increased atelectasis in right lung base with volume loss, localized lucency at right lung base, exact etiology unclear. Possibility of loculated pneumothorax after recent right trigger synthesis. No change in the small pleural effusion. Earlier, patient was on nonrebreather. Respiratory therapist called and put on Airvo. I called the son and he is agreeable for palliative/hospice consult. Hospice consult called. Family meeting in less than 1 hour about 11 AM. Currently inpatient hospice service does not have bed therefore patient will stay over the weekend. 04/27 no change patient remains on Airvo 04/28: Subjectively feels improvement in dyspnea. 2. Acute anemia from upper GI bleed loss: Discussed with the general surgeon. Hemoglobin is 8.2. Platelet count normal. Patient had large-volume hematemesis and EGD was done which showed visible vessel with an ulcer in distal esophagus. No varices. Patient also had fever for which patient started on Unasyn and iron supplement.. 04/23: Hemoglobin improved to 8.1. Continue Protonix. 04/24: Hemoglobin 8.7. 04/26: Hemoglobin 8.1. 3. Probability of aspiration/aspiration pneumonia and bilateral pleural effusion: Patient developed fever and leukocytosis. On Unasyn. Chest CTA shows pleural effusion bilateral, more on the right side with moderate pericardial effusion. Shows reactive adenopathy. 2D echo EF 55% no significant valvular abnormality with normal diastole and no pericardial effusion. 04/24: Patient having spikes of fever. Blood cultures x2, urine culture and UA ordered. IV Unasyn changed to Zosyn. ID consulted. 04/25: ID consult and follow-up reviewed. On antibiotic for possible total 7 days of treatment 04/27: Repeat culture did not show any organism. Blood cultures x2 negative for 48 hours, respiratory panel negative. COVID-19 PCR negative. Urine culture no growth. I will discontinue the antibiotics as he had more than 7 days of antibiotics. 4. New onset A. fib, hypertension and dyslipidemia: ? EF on the echo was normal as mentioned above. ? He did convert to normal sinus rhythm with the addition of p.o. metoprolol to his Cardizem drip, continue with metoprolol 25 mg p.o. twice daily as well as Cardizem 240 mg daily ? Continue with Lipitor 04/24: Patient medical A. fib with RVR. Metoprolol 5 mg IV ordered. If heart rate does not get better we will try digoxin 0.5 mg IV. 04/27: Heart rate is controlled currently in sinus rhythm 04/28: Metoprolol dose increased to 75 mg twice daily daily. Extra metoprolol 1 dose 25 mg ordered 5. Acute on chronic HFpEF with bilateral pleural effusion: Patient is also chronically short of breath with bilateral pleural effusion from acute on chronic HFpEF. Patient has not required BiPAP for 3 days. He will need to be put on diuretic as per tolerated by hemodynamics but currently his pressure is low. Prescription given for Lasix 20 mg daily with holding parameters. 04/24: Patient not able to be dialyzed because of low blood pressure and acute kidney injury. On Lasix 20 mg DVT: SCDs. Disposition: Discharge to inpatient hospice care today.
--- NOTE | 2022-04-29 09:21 | CASEMGMT ---
ZINA called Ana with Hospice. Ana said they are able to take patient. ZINA told her patient is on airvo. Patient cannot be on airvo at inaptient Hospice unit. However, ZINA faxed settings etc and their respiratory therapist will review and see how they can accommodate patient. ZINA updated RN. Await response from Hospice to be sure they can take patient. Then ZINA will notify [facility]. Ana let ZINA know a neonatal pediatric nurse will be coming to [facility] to help coordinate things. ZINA will notify RN. ZINA called patient's son Ric and let him know Hospice has an opening in their inpatient unit. ZINA let him know if he is in agreement we can try and get patient there today. Ric was in agreement. ZINA updated special agent in charge. Teagan MORE
[2022-04-29] MEDS: Pantoprazole Sodium 40 MG Tablet PO (09:45)
--- NOTE | 2022-04-29 11:37 | CASEMGMT ---
Patient was accepted in the inpatient Hospice unit. Per their respiratory therapist patient will need to be on 10L for transport. They can go up to 30L at the facility. SW asked physician if he felt patient would be able to manage on 10L and he felt he would. Hospice is checking to see if their transport is able to take patient. Teagan Galo LEGAL C[employer]IER ARGENIS
--- NOTE | 2022-04-29 12:40 | CASEMGMT ---
ZINA called Ana with Hospice to check on transportation. There was a mix up, however transport will be at [facility] to get patient around 1p. ZINA notified RN, battery charger, physician, and patient's son. Plan: Inpatient Hospice unit. Hospice will transport. Teagan MORE
--- NOTE | 2022-04-29 12:46 | DS.PCM_ITS ---
Providers Date of Admission: 04/18/22 Primary Care Physician: ANIYAH HOLLY Consultations 04/24/22 12:19 Consult: Infectious Disease Routine Consulting Provider: Albin Lemon Reason for Consult: Perisistant fever on Unasyn, suspected aspiration, thoraco ordered EMERGENT Consult: No Notified: Yes Date Notified: 04/24/22 Time Notified: 12:19 Method of Notification: Verbal 04/24/22 12:49 Consult: Adjunct Faculty Mathematics Department / Pulmonary Medicine Routine Consulting Provider: Pulmonary Medicine [facility] Reason for Consult: sob, labored breathing, Right effusion EMERGENT Consult: No MD Notified: Yes Date Notified: 04/24/22 Time Notified: 12:49 Method of Notification: Text 04/26/22 09:43 Consult: Hospice / Palliative Care Routine Consulting Provider: [facility] Reason for Consult: Resp failure, lung cancer EMERGENT Consult: No Notified: Yes Date Notified: 04/26/22 Time Notified: 09:44 Method of Notification: Verbal Reason For Visit: NAZANIN, PERICARDIAL EFFUSION Diagnosis Discharge Diagnosis (1) Hematemesis of unknown cause: Status: Acute Code(s): K92.0 - Hematemesis (2) NAZANIN (acute kidney injury): Status: Acute Code(s): N17.9 - Acute kidney failure, unspecified (3) Aspiration pneumonia: Status: Acute Code(s): J69.0 - Pneumonitis due to inhalation of food and vomit (4) Atrial fibrillation: Status: Acute Code(s): I48.91 - Unspecified atrial fibrillation Plan 1. NAZANIN exact etiology unclear possible prerenal ? Initially renal function worsened. ? He is intermittently febrile however blood cultures are negative, CT of the chest was negative for pneumonia. Urine culture is as mixed ember ? Continue with PPI appreciate general surgery consult, will repeat an H&H when he is back to the floor, completed 2 units of PRBCs ? Has been COVID tested twice which are negative. ? Unsure as to the pathology of his nodule but he did have a lung resection at [facility] in [place] on 08/30/2021. ? Continue with PT/OT for possible placement ? We will try to obtain a stool guaiac to evaluate for any blood loss, as he converted to normal sinus rhythm and his echo that demonstrated normal left atr ium, will discontinue his therapeutic Lovenox, this was likely a reaction to his illness ? Iron studies show an elevated ferritin consistent with inflammation 04/22: BUN/creatinine 41/1.76. K3.5.Mild improvement in creatinine. 04/23: Further improvement in creatinine 1.57. 04/24: Creatinine 1.39. BUN 21. Electrolytes in normal limit. Anion gap 7. 04/25: Urine output about 2.8 L. Patient still has Banks catheter. 04/27: Creatinine 3.47. Urine output documented 550 mill yesterday. Decreasing urine output as compared to day before yesterday. Increasing BUN/creatinine. Patient had urine retention couple days ago therefore Banks catheter was reinserted. 04/28: BUN/creatinine went up high again. 4.78. Patient is hospice care. Labs discontinued. Initially it improved and then getting worse. Acute hypoxic respiratory failure since admission: ABG shows 7.4/PCO2 32.5 PO2 80 on 4 L of oxygen. Advised air fall and pulmonary consult requested. Bronchodilator as needed. Chest CT shows bilateral pleural effusion more on the right side. Thoracocentesis ordered. Repeat chest x-ray consistent with CHF and bibasilar atelectasis and infiltrate worse on the left side. Patient is tachypneic with respiratory 24, labored breathing using chest wall muscles. 04/25: Patient respiratory status better after thoracocentesis. Patient had 400 mmHg thoracocentesis on 04/24. Prelim pleural fluid culture shows no growth but full result pending. Cytology and pathologist comment pending. Patient has a history of lung cancer. Pleural fluid analysis consistent with transudate with 97% lymphocytes concerning for malignancy. Patient has diagnosis of lung cancer and had resection in [facility] in August 2021. Details of pathology unavailable. 04/26: Patient found in respiratory distress tachypneic and hypoxic in the morning. Repeat chest x-ray in the morning shows increased atelectasis in right lung base with volume loss, localized lucency at right lung base, exact etiology unclear. Possibility of loculated pneumothorax after recent right trigger synthesis. No change in the small pleural effusion. Earlier, patient was on nonrebreather. Respiratory therapist called and put on Airvo. I called the son and he is agreeable for palliative/hospice consult. Hospice consult called. Family meeting in less than 1 hour about 11 AM. Currently inpatient hospice service does not have bed therefore patient will stay over the weekend. 04/27 no change patient remains on Airvo 04/28: Subjectively feels improvement in dyspnea. 2. Acute anemia from upper GI bleed loss: Discussed with the general surgeon. Hemoglobin is 8.2. Platelet count normal. Patient had large-volume hematemesis and EGD was done which showed visible vessel with an ulcer in distal esophagus. No varices. Patient also had fever for which patient started on Unasyn and iron supplement.. 04/23: Hemoglobin improved to 8.1. Continue Protonix. 04/24: Hemoglobin 8.7. 04/26: Hemoglobin 8.1. 3. Probability of aspiration/aspiration pneumonia and bilateral pleural effusion: Patient developed fever and leukocytosis. On Unasyn. Chest CTA shows pleural effusion bilateral, more on the right side with moderate pericardial effusion. Shows reactive adenopathy. 2D echo EF 55% no significant valvular abnormality with normal diastole and no pericardial effusion. 04/24: Patient having spikes of fever. Blood cultures x2, urine culture and UA ordered. IV Unasyn changed to Zosyn. ID consulted. 04/25: ID consult and follow-up reviewed. On antibiotic for possible total 7 days of treatment 04/27: Repeat culture did not show any organism. Blood cultures x2 negative for 48 hours, respiratory panel negative. COVID-19 PCR negative. Urine culture no growth. I will discontinue the antibiotics as he had more than 7 days of antibiotics. 4. New onset A. fib, hypertension and dyslipidemia: ? EF on the echo was normal as mentioned above. ? He did convert to normal sinus rhythm with the addition of p.o. metoprolol to his Cardizem drip, continue with metoprolol 25 mg p.o. twice daily as well as Cardizem 240 mg daily ? Continue with Lipitor 04/24: Patient medical A. fib with RVR. Metoprolol 5 mg IV ordered. If heart rate does not get better we will try digoxin 0.5 mg IV. 04/27: Heart rate is controlled currently in sinus rhythm 04/28: Metoprolol dose increased to 75 mg twice daily daily. Extra metoprolol 1 dose 25 mg ordered 5. 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 Patient has not required BiPAP for 3 days. He will need to be put on diuretic as per tolerated by hemodynamics but currently his pressure is low. Prescription given for Lasix 20 mg daily with holding parameters. 04/24: Patient not able to be dialyzed because of low blood pressure and acute kidney injury. On Lasix 20 mg DVT: SCDs. Disposition: Discharge to inpatient hospice care today. Medications at Discharge Home Medications albuterol sulfate 90 mcg/actuation aerosol inhaler 1 - 2 puff inhalation Q4H PRN SOB 04/18/22 atorvastatin 20 mg tablet 20 mg PO QHS 04/18/22 fluticasone fur. 100 mcg-umeclid 62.5 mcg-vilant 25 mcg inhalat.powder (Trelegy Ellipta) 1 inh inhalation DAILY 04/18/22 amlodipine 5 mg-benazepril 10 mg capsule 1 cap PO DAILY #30 caps 04/23/22 amoxicillin 500 mg-potassium clavulanate 125 mg tablet (Augmentin) 1 tab PO BID #8 tabs 04/23/22 furosemide 20 mg tablet 20 mg PO DAILY #30 tabs 04/23/22 ipratropium 0.5 mg-albuterol 3 mg (2.5 mg base)/3 mL nebulization soln 3 ml inhalation Q6HWA.RT #0 mL 04/23/22 metoprolol tartrate 50 mg tablet 50 mg PO BID #0 tabs 04/23/22 pantoprazole 40 mg tablet,delayed release 40 mg PO BID #0 tabs 04/23/22 potassium chloride 20 mEq tablet,extended release(part/cryst) (Klor-Con M) 40 meq PO DAILY #0 tabs 04/23/22 sennosides 8.6 mg-docusate sodium 50 mg tablet (Stool Softener-Stimulant Laxative) 2 tab PO BID PRN PRN Constipation #0 tabs 04/23/22 Hospital Course Operations None Procedures None Summary of Care Provided Minutes Spent on Discharge: 32 Weight / BMI Weight Weight: 68.039 kg Body Mass Index (BMI) 22.1 ABG / Lab / Microbiology Data Result Diagrams: 04/28/22 06:35 04/28/22 06:35 Microbiology: Microbiology 04/24/22 15:08 Fluid - Thoracentesis Fluid Gram Stain - Final 04/24/22 15:08 Fluid - Thoracentesis Fluid Body Fluid Culture - Final Culture exhibits no growth. 04/24/22 15:08 Fluid - Thoracentesis Fluid Anaerobic Culture - Preliminary No growth in 48 hours. 04/27/22 07:50 Mucosa - Nose Respiratory Panel (PCR) - Final 04/24/22 12:15 Blood Culture (Wb) - Anticubital Left Blood Culture - Preliminary No growth in 48 hours. 04/24/22 12:05 Blood Culture (Wb) - Right Hand Blood Culture - Preliminary No growth in 48 hours. 04/24/22 12:40 Urine Catheter - Banks Urine Culture - Final Culture exhibits no growth. 04/18/22 04:32 Blood Culture (Wb) - Anticubital Left Blood Culture - Final No growth in 5 days. 04/18/22 04:46 Blood Culture (Wb) - Left Hand Blood Culture - Final No growth in 5 days. 04/18/22 02:20 Urine, Clean Catch Urine Culture - Final Mixed Gram Positive Organisms 04/20/22 20:55 Stool Stool Occult Blood (XI) - Final Occult Blood Positive 04/20/22 15:35 Stool Stool Occult Blood (XI) - Final 04/18/22 22:55 Nasal Secretion SARS-CoV-2 Antigen (Rapid) - Final 04/18/22 01:10 Nasal Secretion SARS-CoV-2 & FLU Antigen (Rapid) - Final D/C Instructions Discharge Diet: No restrictions Meaningful Use Info Meaningful Use Diagnoses (Choose all that apply): None applicable Discharge Plan Admission Admit Date/Time: 04/18/22 04:14 Primary Reason for Your Visit: NAZANIN, acute anemia, new onset A. fib. Respiration. Attending Provider: Prakash Nolan Primary Care Provider: ANIYAH HOLLY Consulting Providers: Shaun Landry ; Nazario Madera ; Albin Lemon ; Marek Faustin ; Jordan Reynoso ; Bill White ; Mejia Limon ; Jessica Van NP ; Binta Mccann ; Stephane Davis ; Brigette Dennis ; Jazmine Villarreal ; Erika Fu CDL DRIVER ; Clemente Acosta Instructions Patient Instructions: SCOTT RN Thoracentesis Dc Additional Instructions / Restrictions: Patient will need BiPAP as needed or at night. Discharge Orders/Prescriptions Prescriptions: New ipratropium-albuterol 0.5 mg-3 mg(2.5 mg base)/3 mL Solution For Nebulization 3 ml inhalation Q6HWA.RT Qty: 0 0RF sennosides-docusate sodium [Stool Softener-Stimulant Laxat] 8.6-50 mg Tablet 2 tab PO BID PRN PRN (Reason: Constipation) Qty: 0 0RF potassium chloride [Klor-Con M20] 20 mEq Tablet,Er Particles/Crystals 40 meq PO DAILY Qty: 0 0RF Rx Instructions: For 7 days and then check BMP pantoprazole 40 mg Tablet,Delayed Release (Dr/Ec) 40 mg PO BID Qty: 0 0RF Rx Instructions: 40 mg p.o. twice daily for 2 months and then once daily metoprolol tartrate 50 mg Tablet 50 mg PO BID Qty: 0 0RF Rx Instructions: Hold for heart less than 60 or systolic blood pressure less than 100 mmHg. amoxicillin-pot clavulanate [Augmentin] 500-125 mg tablet 1 tab PO BID Qty: 8 0RF furosemide 20 mg tablet 20 mg PO DAILY Qty: 30 0RF Rx Instructions: Hold if SBP < 100 mmHg Continued albuterol sulfate 90 mcg/actuation HFA aerosol inhaler 1 - 2 puff INHALATION Q4H PRN (Reason: SOB) Label Comments: INHALE 2 PUFFS INTO THE LUNGS EVERY 6 HOURS NEEDED FOR WHEEZING AND/OR SHORTN atorvastatin 20 mg tablet 20 mg PO QHS Label Comments: TAKE 1 TABLET BY MOUTH EVERY DAY Trelegy Ellipta 100-62.5-25 mcg blister with device 1 inh INHALATION DAILY Label Comments: TAKE 1 PUFF BY MOUTH EVERY DAY amlodipine-benazepril 5-10 mg capsule 1 cap PO DAILY Qty: 30 0RF Label Comments: TAKE 1 CAPSULE BY MOUTH EVERY DAY Rx Instructions: Hold for SBP less than 130 mmHg Referrals / Follow Up: ANIYAH HOLLY [Other] ANIYAH HOLLY [Other] Jordan Reynoso DO [Med Staff - Active Staff] - Within 2 Weeks (for SOB, NEED PFT and sleep study. copd?) Higinio Rogers MD [Med Staff - Active Staff] - Within 1 Month (for Afib) James Corcoran DO [Med Staff - Active Staff] - Within 1 Month (For long segment of Negrete's esophagus. Z-line irregular. Nonbleeding esophageal ulcer.) Disposition Disposition (needs filled in before D/C Order can be placed): Hospice in Medical Facility Charges/Coding Visit Charges Inpatient E&M: 74983 Disch Hosp >30min
--- NOTE | 2022-04-29 13:05 | CASEMGMT ---
ZINA called Rachael at [facility] and let her know patient will be going to the inpatient Hospice unit. Teagan Galo RAG BALERTrevon MORE
[2022-04-29 13:18] VITALS: PULSE 73; RESP 18
[2022-04-29 21:32] LABS: Amylase Body Fluid 43 U/L (.)
[2022-04-29 21:33] LABS: pH, Body Fluid 11254 7.5 (Not Estab.)
== END 2022-04-29 13:38 | disposition hospice, inpatient (51) | DRG 682 ==
LOC: ED 04-18 04:17 → PCU 04-18 05:17
PROVIDERS: Anesthesiology; Family Medicine; Internal Medicine; Internal Medicine Infectious Disease; Surgery; Admitting Provider Hospitalist; Emergency Provider Emergency Medicine
PROC: 0DJ08ZZ Inspection of Upper Intestinal Tract, Via Natural or Artificial Opening Endoscopic (ICD-10-PCS; CPT 43235; principal; 2022-04-21 10:00)
DX: N17.9 Acute kidney failure, unspecified (principal); K25.4 Chronic or unspecified gastric ulcer with hemorrhage; J96.21 Acute and chronic respiratory failure with hypoxia; J69.0 Pneumonitis due to inhalation of food and vomit; I50.33 Acute on chronic diastolic (congestive) heart failure; I31.39 Other pericardial effusion (noninflammatory); D62 Acute posthemorrhagic anemia; K22.10 Ulcer of esophagus without bleeding; C34.90 Malignant neoplasm of unspecified part of unspecified bronchus or lung; J91.8 Pleural effusion in other conditions classified elsewhere; I48.91 Unspecified atrial fibrillation; I11.0 Hypertensive heart disease with heart failure; F17.210 Nicotine dependence, cigarettes, uncomplicated; D72.825 Bandemia; E78.5 Hyperlipidemia, unspecified; K31.819 Angiodysplasia of stomach and duodenum without bleeding; K31.89 Other diseases of stomach and duodenum; R62.7 Adult failure to thrive; R53.81 Other malaise; Z60.2 Problems related to living alone; R59.0 Localized enlarged lymph nodes; Z51.5 Encounter for palliative care; Z68.22 Body mass index [BMI] 22.0-22.9, adult
CPT/HCPCS: 32555; 36415; 36600; 71045; 71046; 71275; 74018; 76770; 80048; 80053; 80076; 81001; 82150; 82274; 82570; 82728; 82803; 82945; 83540; 83550; 83605; 83615; 83735; 83880; 83930; 83986; 84145; 84156; 84157; 84300; 84443; 85014; 85018; 85025; 85610; 85730; 86850; 86900; 86901; 86920; 87040; 87070; 87075; 87086; 87088; 87205; 87426; 87428; 87633; 87635; 87641; 88108; 88305; 88313; 89050; 92610; 93005; 93306; 94640; 94660; 94760; 94762; 97110; 97162; 97166; 97530; 97535; 97802; 97803; 99284; 99406; J7030; J7040; J7050; J7120; P9016; Q9957; Q9967; A4216; C8929; J0295; J1940; J2405; J2916; J3490; U0003; U0005